=== PATIENT | female | born 1935 | race Caucasian/White ===

== ENCOUNTER → 2016-07-31 | Outpatient (CLI) | payer MEDICARE, OTHER ==
[~2016-07-31] MED LIST: CIPR500T3 PO; INCR1INH INH; LEVA250T PO; NIFE60TA4 PO; PERC10TA17 PO; PERCOCET PO; ROPI5TAB PO; TYLE325C PO; TYLE650T35 PO
[2016-07-31 17:26] LABS: CALCIUM LEVEL 8.8 MG/DL (8.8-10.2); CREATININE FOR GFR 1.4 MG/DL (0.55-1.02); GLOMERULAR FILTRATION RATE 38.2 (>32); POTASSIUM SERUM 4.3 MEQ/L (3.5-5.1)
[2016-07-31 17:32] LABS: MEAN CORPUSCULAR HEMOGLOBIN 27.7 pg (27.0-33.0); MEAN CORPUSCULAR HGB CONC 31.1 g/dl (32.0-36.5); RED CELL DISTRIBUTION WIDTH 13.9 % (11.5-14.5); WHITE BLOOD COUNT 7.4 K/mm3 (4.0-10.0)
== END ==
LOC: M SMT 14:00
PROVIDERS: ATTEND Urology
DX: Z85.51 Personal history of malignant neoplasm of bladder (principal)

== ENCOUNTER → 2016-11-24 | Outpatient (CLI) | payer MEDICARE, OTHER ==
[~2016-11-24] MED LIST changes: +NIFE15TA PO; -NIFE60TA4 PO
[2016-11-24 13:06] LABS: MEAN CORPUSCULAR HGB CONC 31.1 g/dl (32.0-36.5); MEAN CORPUSCULAR VOLUME 93.4 fl (80.0-96.0); RED CELL DISTRIBUTION WIDTH 14.3 % (11.5-14.5); WHITE BLOOD COUNT 6.1 K/mm3 (4.0-10.0)
[2016-11-24 13:38] LABS: CALCIUM LEVEL 9.1 MG/DL (8.8-10.2); CREATININE FOR GFR 1.29 MG/DL (0.55-1.02); POTASSIUM SERUM 4.3 MEQ/L (3.5-5.1)
== END ==
LOC: M SMT 09:46
PROVIDERS: ATTEND Urology
DX: Z85.51 Personal history of malignant neoplasm of bladder (principal)
CPT/HCPCS: 36415; 80048; 81001; 85027; 88108; G0463

== ENCOUNTER → 2017-02-15 | Outpatient (CLI) | payer MEDICARE, OTHER ==
[~2017-02-15] MED LIST changes: +LEVA1TAB PO; -LEVA250T PO; +NIFE60TA61; -PERC10TA17 PO; +PERC10TA26 PO; +ROPI1TAB
--- NOTE | 2017-02-15 09:47 | REP ---
CT of the chest without IV contrast: Comparisons are 02/16/2016, 06/11/2015, 11/09/2014 and 06/26/2013. There is a 9.5 mm spiculated nodule in the left upper lobe, stable and unchanged from 06/26/2013, therefore, likely a granuloma. There are two biopsy clips versus granulomas in the right upper lobe. There are two biopsy clips versus granulomas in the left upper lobe. These are unchanged from 04/29/2014. On 06/26/2013 there was a mass-like density in the deep sulcus of the right lower lobe. This is no longer present on the study today and was not present on studies dating from 11/17/2014. It had significantly decreased in size on04/29/2014. There is bilateral apical pleuroparenchymal scarring, unchanged from all prior studies. There is focal parenchymal scarring inferiorly in the right middle lobe unchanged from all prior studies. There is chronic parenchymal scarring in the right lower lobe, unchanged from 11/09/2014. There are no new lung nodules or masses. There are no acute infiltrates or effusions. There are small bulla throughout the lung parenchyma bilaterally as previously. There is no mediastinal or axillary adenopathy. In the absence of IV contrast the study is insensitive for hilar adenopathy. In the upper abdomen. There are surgical clips in the right adrenal and right renal upper pole areas, not present previously. I do not identify the right adrenal or upper pole of the right kidney. The left adrenal is unremarkable. There is a parapelvic cyst in the upper pole of the left kidney measuring 3.4 cm. This is unchanged from 11/24/2012. Impression: Stable nodule in the left upper lobe as described. Stable surgical clips versus granulomas in the upper lobes bilaterally, unchanged. No new nodules or masses. Chronic pleural parenchymal scarring in the lung apices. Chronic scarring in the right middle lobe and right lower lobe. Multiple bulla throughout the lung quiñonez bilaterally. New surgical clips in the right adrenal and right renal upper pole areas, not present previously. There are no new nodules or masses. There are no acute infiltrates or effusions. No adenopathy. Signed by Colton Diallo MD 02/15/2017 09:38 A
== END ==
LOC: M RAD 06:56
PROVIDERS: ATTEND Internal Medicine Pulmonary Disease
DX: J44.9 Chronic obstructive pulmonary disease, unspecified (principal); R91.1 Solitary pulmonary nodule; J98.4 Other disorders of lung

== ENCOUNTER → 2017-03-06 | Outpatient (CLI) | payer MEDICARE, OTHER ==
[2017-03-06 18:40] LABS: CALCIUM LEVEL 8.8 MG/DL (8.8-10.2); CREATININE FOR GFR 1.32 MG/DL (0.55-1.02); GLOMERULAR FILTRATION RATE 40.8 (>32); POTASSIUM SERUM 4.4 MEQ/L (3.5-5.1)
== END ==
LOC: M SMT 13:03
PROVIDERS: ATTEND Urology
DX: Z85.51 Personal history of malignant neoplasm of bladder (principal)

== ENCOUNTER 2017-04-19 18:54 | Emergency (ER) | payer MEDICARE, OTHER ==
[~2017-04-19] VITALS: Ht 157.5 cm; Wt 46.3 kg
[~2017-04-19 18:54] MED LIST changes: -NIFE60TA61; -ROPI1TAB
[2017-04-19] MEDS ORDERED: NIFE60TA61 (19:06)
[2017-04-19] MEDS ORDERED: ROPI1TAB (19:06)
[2017-04-19 22:33] VITALS: BP 173/79
== END 2017-04-19 22:35 | disposition home or self-care (01) ==
LOC: M ED 18:54
DX: S61.011A Laceration without foreign body of right thumb without damage to nail, initial encounter (principal); W01.198A Fall on same level from slipping, tripping and stumbling with subsequent striking against other object, initial encounter; Y92.099 Unspecified place in other non-institutional residence as the place of occurrence of the external cause; Y93.01 Activity, walking, marching and hiking; Y99.9 Unspecified external cause status

== ENCOUNTER → 2017-07-30 | Outpatient (CLI) | payer MEDICARE, OTHER ==
[2017-07-30 15:59] LABS: ANION GAP 6 MEQ/L (8-16); BLOOD UREA NITROGEN 27 MG/DL (7-18); CARBON DIOXIDE LEVEL 30 MEQ/L (21-32); CHLORIDE LEVEL 105 MEQ/L (98-107); CREATININE FOR GFR 1.24 MG/DL (0.55-1.02); GLOMERULAR FILTRATION RATE 43.9 (>32); GLUCOSE, FASTING 95 MG/DL (83-110); SODIUM LEVEL 141 MEQ/L (136-145)
[2017-07-30 16:05] LABS: HEMATOCRIT 36.8 % (36.0-47.0); HEMOGLOBIN 11.4 g/dl (12.0-16.0); MEAN CORPUSCULAR HEMOGLOBIN 28.6 pg (27.0-33.0); MEAN CORPUSCULAR VOLUME 92.5 fl (80.0-96.0); PLATELET COUNT, AUTOMATED 301 10^3/uL (150-450); RED BLOOD COUNT 3.98 10^6/uL (4.00-5.40); RED CELL DISTRIBUTION WIDTH 12.9 % (11.5-14.5); WHITE BLOOD COUNT 7.6 10^3/uL (4.0-10.0)
[2017-07-30 16:07] LABS: APPEARANCE, URINE CLEAR (CLEAR); BACTERIA, URINE AUTO NEGATIVE (NEGATIVE); BILIRUBIN, URINE AUTO NEGATIVE (NEGATIVE); BLOOD, URINE BLOOD NEGATIVE (NEGATIVE); COLOR, URINE YELLOW (YELLOW); GLUCOSE, URINE (UA) AUTO NEGATIVE (NEGATIVE); KETONE, URINE AUTO TRACE mg/dL (NEGATIVE); LEUKOCYTE ESTERASE, URINE AUTO NEGATIVE (NEGATIVE); NITRITE, URINE AUTO NEGATIVE (NEGATIVE); PROTEIN, URINE AUTO 1+ mg/dL (NEGATIVE); RBC, URINE AUTO 1 /HPF (0-3); SPECIFIC GRAVITY URINE AUTO 1.025 (1.002-1.035); SQUAMOUS EPITHELIAL CELL UR AU 0 /HPF (0-6); UROBILINOGEN, URINE AUTO 0.2 mg/dL (0.0-2.0); WBC, URINE AUTO 2 /HPF (0-3)
== END ==
LOC: M SMT 13:08
DX: Z85.51 Personal history of malignant neoplasm of bladder (principal)
CPT/HCPCS: 80048

== ENCOUNTER 2018-01-31 07:37 | Emergency (ER) | payer MEDICARE, OTHER ==
[2018-01-31 08:50] LABS: BASO # 0.1 10^3/uL (0.0-0.2); BASO % 0.4 % (0.0-1.0); EOS # 0.2 10^3/uL (0.0-0.50); EOS % 1.5 % (0.0-3.0); HEMATOCRIT 39.6 % (36.0-47.0); HEMOGLOBIN 12.7 g/dl (12.0-15.5); IMMATURE GRANULOCYTE % 0.5 % (0-3.0); LYMPH # 1.5 10^3/uL (1.5-4.5); MEAN CORPUSCULAR HEMOGLOBIN 29.4 pg (27.0-33.0); MEAN CORPUSCULAR HGB CONC 32.1 g/dl (32.0-36.5); MEAN CORPUSCULAR VOLUME 91.7 fl (80.0-96.0); MONO % 7.3 % (0.0-5.0); NEUTROPHILS # 10.6 10^3/uL (1.8-7.7); NEUTROPHILS % 79.3 % (36.0-66.0); PLATELET COUNT, AUTOMATED 328 10^3/uL (150-450); RED BLOOD COUNT 4.32 10^6/uL (4.00-5.40); RED CELL DISTRIBUTION WIDTH 13.2 % (11.5-14.5); WHITE BLOOD COUNT 13.4 10^3/uL (4.0-10.0)
[2018-01-31 08:57] LABS: ANION GAP 7 MEQ/L (8-16); BLOOD UREA NITROGEN 23 MG/DL (7-18); CALCIUM LEVEL 9.5 MG/DL (8.8-10.2); CARBON DIOXIDE LEVEL 29 MEQ/L (21-32); CHLORIDE LEVEL 107 MEQ/L (98-107); CREATININE FOR GFR 1.37 MG/DL (0.55-1.30); GLUCOSE, FASTING 104 MG/DL (70-100); POTASSIUM SERUM 4.2 MEQ/L (3.5-5.1); SODIUM LEVEL 143 MEQ/L (136-145)
[2018-01-31] MEDS: NS 500 ML IV ×2 (09:00)
== END 2018-01-31 12:57 | disposition home or self-care (01) ==
LOC: M ED 07:37
DX: K52.9 Noninfective gastroenteritis and colitis, unspecified (principal); N18.3 Chronic kidney disease, stage 3 (moderate); I12.9 Hypertensive chronic kidney disease with stage 1 through stage 4 chronic kidney disease, or unspecified chronic kidney disease; J45.909 Unspecified asthma, uncomplicated; G25.81 Restless legs syndrome; Z88.8 Allergy status to other drugs, medicaments and biological substances; Z79.899 Other long term (current) drug therapy
CPT/HCPCS: 80048

== ENCOUNTER → 2018-02-04 | Outpatient (REF) | payer MEDICARE, OTHER | LOC: M SMT 16:58 | DX: Z85.51 Personal history of malignant neoplasm of bladder (principal) | CPT/HCPCS: 88108 ==

== ENCOUNTER → 2018-02-26 | Outpatient (CLI) | payer MEDICARE, OTHER | LOC: M WUC 17:58 | DX: M25.552 Pain in left hip (principal); M79.605 Pain in left leg; M85.88 Other specified disorders of bone density and structure, other site; M16.12 Unilateral primary osteoarthritis, left hip | CPT/HCPCS: 73502 ==

== ENCOUNTER 2018-05-23 07:41 | Day surgery (SDC) | payer MEDICARE, OTHER ==
[2018-05-23] MEDS: PROPARACAINE 0.5% OPHTH SOL 15ML OS (08:00)
[2018-05-23] MEDS: OFLOXACIN 0.3 % (OCUFLOX) OPTH SOL 5ML OS (08:00)
[2018-05-23] MEDS: TROPICAMIDE 1% OPHTH SOLN 2ML OS (08:00)
[2018-05-23] MEDS: PHENYLEPHRINE 2.5% OPHTH SOL 2ML OS (08:00)
[2018-05-23] MEDS: POVIDONE-IODINE 5% OPHTH PREP SOL 30ML As Ordered (08:25)
[2018-05-23] MEDS: DUOVISC (0.50ML VISCOAT/0.55ML PROVISC) OPHTH KIT As Ordered (08:28)
[2018-05-23] MEDS: LIDOCAINE 0.75%/EPINEPHRINE 0.025% IN BSS 1ML SYR INTRACAMERAL (OR ONLY) As Ordered (08:28)
[2018-05-23] MEDS: BALANCED SALT IRRIGATION SOLUTION 500ML BAG (FOR OR EYE MACHINE) As Ordered (08:28)
[2018-05-23] MEDS: CEFUROXIME 1MG/0.1ML INTRACAMERAL INJ As Ordered (08:29)
[2018-05-23] MEDS ORDERED: TRIAMCINOLONE PRES FR 40 MG/ML 1ML(TRIESENCE)(OR EYE ONLY)(J3300 PER 1MG) As Ordered (08:33)
[2018-05-23] MEDS ORDERED: fentaNYL 100 MCG/2 ML INJECTION (J3010) As Ordered (08:41)
[2018-05-23] MEDS ORDERED: MIDAZOLAM INJ 2 MG/2 ML VIAL (J2250) As Ordered (08:41)
== END 2018-05-23 09:25 | disposition home or self-care (01) ==
LOC: M SDC 07:41
DX: H25.12 Age-related nuclear cataract, left eye (principal); I10 Essential (primary) hypertension; R00.2 Palpitations; M12.9 Arthropathy, unspecified; R63.6 Underweight; Z68.1 Body mass index [BMI] 19.9 or less, adult; Z88.8 Allergy status to other drugs, medicaments and biological substances; Z79.899 Other long term (current) drug therapy; Z85.118 Personal history of other malignant neoplasm of bronchus and lung; Z85.51 Personal history of malignant neoplasm of bladder; Z87.891 Personal history of nicotine dependence; Z96.652 Presence of left artificial knee joint; Z90.5 Acquired absence of kidney
CPT/HCPCS: 66984

== ENCOUNTER 2018-06-20 06:23 | Day surgery (SDC) | payer MEDICARE, OTHER ==
[2018-06-20] MEDS ORDERED: MIDAZOLAM INJ 2 MG/2 ML VIAL (J2250) As Ordered (07:01)
[2018-06-20] MEDS ORDERED: fentaNYL 100 MCG/2 ML INJECTION (J3010) As Ordered (07:01)
[2018-06-20] MEDS: PHENYLEPHRINE 2.5% OPHTH SOL 2ML OD (07:23)
[2018-06-20] MEDS: OFLOXACIN 0.3 % (OCUFLOX) OPTH SOL 5ML OD (07:23)
[2018-06-20] MEDS: PROPARACAINE 0.5% OPHTH SOL 15ML OD (07:23)
[2018-06-20] MEDS: TROPICAMIDE 1% OPHTH SOLN 2ML OD (07:23)
[2018-06-20] MEDS: POVIDONE-IODINE 5% OPHTH PREP SOL 30ML As Ordered (07:58)
[2018-06-20] MEDS: LIDOCAINE 0.75%/EPINEPHRINE 0.025% IN BSS 1ML SYR INTRACAMERAL (OR ONLY) As Ordered (08:02)
[2018-06-20] MEDS: DUOVISC (0.50ML VISCOAT/0.55ML PROVISC) OPHTH KIT As Ordered ×2 (08:03→08:18)
[2018-06-20] MEDS: TRYPAN BLUE 0.06 % 2.25 ML OPHTH SYR (VISIONBLUE) As Ordered (08:08)
[2018-06-20] MEDS: BALANCED SALT IRRIGATION SOLUTION 500ML BAG (FOR OR EYE MACHINE) As Ordered (08:09)
[2018-06-20] MEDS: CEFUROXIME 1MG/0.1ML INTRACAMERAL INJ As Ordered (08:10)
[2018-06-20] MEDS: TRIAMCINOLONE PRES FR 40 MG/ML 1ML(TRIESENCE)(OR EYE ONLY)(J3300 PER 1MG) As Ordered (08:19)
== END 2018-06-20 09:00 | disposition home or self-care (01) ==
LOC: M SDC 06:23
DX: H25.11 Age-related nuclear cataract, right eye (principal); I10 Essential (primary) hypertension; Z79.899 Other long term (current) drug therapy; Z85.118 Personal history of other malignant neoplasm of bronchus and lung
CPT/HCPCS: 66984

== ENCOUNTER → 2018-08-23 | Outpatient (REF) | payer MEDICARE, OTHER ==
[~2018-08-23] MED LIST changes: -LEVA1TAB PO; +LEVA250T13 PO; +LISI10TA4 PO; +LOMO2.5T PO; +NIFE60TA40; +ROPI1TAB PO; -ROPI5TAB PO; +ROPI5TAB3 PO; +ZOFR4TAB14 PO
== END ==
LOC: M SMT 17:14
PROVIDERS: ATTEND Urology Pediatric Urology
DX: Z85.51 Personal history of malignant neoplasm of bladder (principal); H25.89 Other age-related cataract; N30.30 Trigonitis without hematuria; R19.2 Visible peristalsis

== ENCOUNTER → 2018-09-06 | Outpatient (REF) | payer MEDICARE, OTHER | LOC: M SMT 16:44 | PROVIDERS: ATTEND Urology Pediatric Urology | DX: Z85.51 Personal history of malignant neoplasm of bladder (principal) ==

== ENCOUNTER 2018-09-19 16:32 | Emergency (ER) | payer MEDICARE, OTHER ==
[~2018-09-19] VITALS: Ht 157.5 cm; Wt 45.5 kg
[2018-09-19 16:32] VITALS: BP 197/92
== END 2018-09-19 17:16 | disposition left against medical advice (07) ==
LOC: M ED 16:32
DX: Z53.21 Procedure and treatment not carried out due to patient leaving prior to being seen by health care provider (principal)

== ENCOUNTER → 2018-09-24 | Outpatient (CLI) | payer MEDICARE, OTHER ==
[2018-09-24 18:28] LABS: ALBUMIN 3.2 GM/DL (3.2-5.2); BILIRUBIN,TOTAL 0.2 MG/DL (0.2-1.0); CALCIUM LEVEL 8.7 MG/DL (8.8-10.2); CREATININE FOR GFR 1.14 MG/DL (0.55-1.30); GLOMERULAR FILTRATION RATE 48.2 (>32); POTASSIUM SERUM 4.3 MEQ/L (3.5-5.1); TOTAL PROTEIN 7.2 GM/DL (6.4-8.2)
== END ==
LOC: M SMT 13:39
PROVIDERS: ATTEND Urology Pediatric Urology
DX: Z85.51 Personal history of malignant neoplasm of bladder (principal)

== ENCOUNTER → 2018-09-24 | Outpatient (REF) | payer MEDICARE, OTHER | LOC: M SMT 17:09 | PROVIDERS: ATTEND Urology Pediatric Urology | DX: Z85.51 Personal history of malignant neoplasm of bladder (principal) ==

== ENCOUNTER 2018-10-21 15:33 | Emergency (ER) | payer MEDICARE, OTHER ==
[~2018-10-21] VITALS: Ht 157.5 cm; Wt 45.5 kg
[2018-10-21] MEDS ORDERED: PROAAER10 (15:58)
--- NOTE | 2018-10-21 18:47 | REP ---
Clinical: Trauma. Technique: Gates and bilateral lateral views of the nasal bones. Findings: Nasal septum is midline. Nasal bones appear intact without acute fracture or dislocation. Overlying soft tissues are grossly unremarkable. Impression: No acute nasal bone fracture identified. Electronically Signed by Lizandro Yun MD 10/21/2018 06:39 P
[2018-10-21] MEDS ORDERED: BACI500O8 TOP (19:14)
[2018-10-21 19:20] VITALS: BP 144/75
== END 2018-10-21 19:22 | disposition home or self-care (01) ==
LOC: M ED 15:33
DX: S01.21XA Laceration without foreign body of nose, initial encounter (principal); S00.511A Abrasion of lip, initial encounter; W01.10XA Fall on same level from slipping, tripping and stumbling with subsequent striking against unspecified object, initial encounter; Y92.480 Sidewalk as the place of occurrence of the external cause; Y93.9 Activity, unspecified; Y99.9 Unspecified external cause status; I10 Essential (primary) hypertension; J44.9 Chronic obstructive pulmonary disease, unspecified; Z85.118 Personal history of other malignant neoplasm of bronchus and lung; K21.9 Gastro-esophageal reflux disease without esophagitis; N18.9 Chronic kidney disease, unspecified; Z79.899 Other long term (current) drug therapy; Z88.8 Allergy status to other drugs, medicaments and biological substances

== ENCOUNTER → 2019-09-17 | Outpatient (REF) | payer MEDICARE, OTHER ==
[~2019-09-17] MED LIST changes: +BACI500O8 TOP; +PROAAER10; -ROPI1TAB PO; +ROPI1TAB3 PO
== END ==
LOC: M SMT 16:56
PROVIDERS: ATTEND Nurse Practitioner Women's Health
DX: Z85.51 Personal history of malignant neoplasm of bladder (principal)

== ENCOUNTER 2019-10-24 14:27 | Emergency (ER) | payer MEDICARE, OTHER ==
[~2019-10-24] VITALS: Ht 154.9 cm; Wt 42.7 kg
[2019-10-24] MEDS ORDERED: METR-265 PO (14:56)
[2019-10-24] MEDS ORDERED: CIPR500T3 PO (14:56)
[2019-10-24 15:00] LABS: BASO % 0.6 % (0.0-1.0); EOS # 0.2 10^3/uL (0.0-0.5); EOS % 2.4 % (0.0-3.0); HEMATOCRIT 41.5 % (36.0-47.0); HEMOGLOBIN 13.3 g/dl (12.0-15.5); LYMPH # 1.7 10^3/uL (1.5-5.0); LYMPH % 25.4 % (24.0-44.0); MEAN CORPUSCULAR HEMOGLOBIN 29.6 pg (27.0-33.0); MEAN CORPUSCULAR VOLUME 92.2 fl (80.0-96.0); MONO # 0.7 10^3/uL (0.0-0.8); MONO % 10.2 % (0.0-5.0); NEUTROPHILS % 60.9 % (36.0-66.0); PLATELET COUNT, AUTOMATED 215 10^3/uL (150-450); WHITE BLOOD COUNT 6.6 10^3/uL (4.0-10.0)
[2019-10-24 15:12] LABS: INR 1.18; PROTHROMBIN TIME 14.7 SECONDS (11.8-14.0)
[2019-10-24 15:13] LABS: PARTIAL THROMBOPLASTIN TIME 31.8 SECONDS (25.0-38.4)
[2019-10-24] MEDS ORDERED: NS 500 ML IV ONE (15:15)
--- NOTE | 2019-10-24 15:15 | REP ---
PORTABLE CHEST X-RAY: Single view. HISTORY: Chest pain. COMPARISON CHEST X-RAY: July 31, 2017. FINDINGS: There is an S-shaped thoracolumbar scoliotic curve again noted. There are fiducial metallic markers in the upper lobes bilaterally unchanged. The lungs overall are somewhat hyperinflated. Cardiomegaly is observed. There is slight blunting of the right lateral pleural angle. Some linear fibrosis is noted in the right base. No infiltrate is seen. Pulmonary vasculature is not increased. The aorta is calcific and tortuous. IMPRESSION: Hyperinflation. Linear fibrosis right base. Slight blunting of the right lateral pleural angle. Cardiomegaly. Electronically Signed by Rubén Vaca MD 10/24/2019 04:10 P
[2019-10-24 15:43] LABS: ALBUMIN 3.2 GM/DL (3.2-5.2); ALT/SGPT 18 U/L (12-78); BILIRUBIN,DIRECT < 0.1 MG/DL (0.0-0.2); BILIRUBIN,TOTAL 0.3 MG/DL (0.2-1.0); BLOOD UREA NITROGEN 21 MG/DL (7-18); CALCIUM LEVEL 8.9 MG/DL (8.8-10.2); CARBON DIOXIDE LEVEL 26 MEQ/L (21-32); CHLORIDE LEVEL 108 MEQ/L (98-107); CK-MB VALUE MASS 4.5 NG/ML (<3.6); CPK CREATINE PHOSPHOKINASE 105 U/L (26-192); CREATININE FOR GFR 1.14 MG/DL (0.55-1.30); GLOMERULAR FILTRATION RATE 48.1 (>32); GLUCOSE, FASTING 128 MG/DL (70-100); MB/CK RELATIVE INDEX 4.29 (< OR =4); POTASSIUM SERUM 3.9 MEQ/L (3.5-5.1); SODIUM LEVEL 138 MEQ/L (136-145); THYROID STIMULATING HORMONE 0.296 uIU/ML (0.358-3.740); TOTAL PROTEIN 6.9 GM/DL (6.4-8.2); TROPONIN I 0.03 NG/ML (< 0.10)
[2019-10-24] MEDS ORDERED: ECOT81TA5 PO (16:29)
[2019-10-24 16:30] VITALS: BP 121/70
[2019-10-24] MEDS ORDERED: ATEN25TA PO (16:30)
--- NOTE | 2019-10-25 07:31 | ECGEPIP ---
[facility] - ED Test Date: 2019-10-24 Pat Name: RILEY NYE Department: Room: - Gender: Female Mechanical Repair Worker: Velma WALSH : 1935 Requested By: ANGELA Carter Order Number: [id number] Reading MD: Jose A Payne Measurements Intervals [place] Rate: 90 P: [place]: 0 QRS: 268 QRSD: 125 T: 68 QT: 358 QTc: 439 Interpretive Statements ATRIAL FIBRILLATION RIGHT BUNDLE BRANCH BLOCK INFERIOR MYOCARDIAL INFARCTION, OF INDETERMINATE AGE NOISY BASELINE PREVIOUS TRACING DONE 07-31-17 WAS SINUS RHYTHM Electronically Signed on 10-25-2019 7:30:52 EDT by Jose A Payne
== END 2019-10-24 17:00 | disposition home or self-care (01) ==
LOC: EDBD 14:27 → M ED 14:27
DX: I48.91 Unspecified atrial fibrillation (principal); I67.9 Cerebrovascular disease, unspecified; I11.9 Hypertensive heart disease without heart failure; K21.9 Gastro-esophageal reflux disease without esophagitis; R91.8 Other nonspecific abnormal finding of lung field; Z79.51 Long term (current) use of inhaled steroids; Z79.899 Other long term (current) drug therapy; Z88.8 Allergy status to other drugs, medicaments and biological substances

== ENCOUNTER → 2020-01-02 | Outpatient (CLI) | payer MEDICARE, OTHER ==
[~2020-01-02] MED LIST changes: +ATEN25TA PO; +ECOT81TA5 PO; +METR-265 PO
[2020-01-02 11:05] LABS: HEMATOCRIT 41.5 % (36.0-47.0); HEMOGLOBIN 12.8 g/dl (12.0-15.5); MEAN CORPUSCULAR HEMOGLOBIN 29.5 pg (27.0-33.0); MEAN CORPUSCULAR HGB CONC 30.8 g/dl (32.0-36.5); MEAN CORPUSCULAR VOLUME 95.6 fl (80.0-96.0); PLATELET COUNT, AUTOMATED 280 10^3/uL (150-450); RED BLOOD COUNT 4.34 10^6/uL (4.00-5.40); WHITE BLOOD COUNT 5.6 10^3/uL (4.0-10.0)
[2020-01-02 11:29] LABS: ERYTHROCYTE SEDIMENTATION RATE 45 mm/hr (0-30)
[2020-01-02 11:41] LABS: ALBUMIN 3.1 GM/DL (3.2-5.2); ALT/SGPT 19 U/L (12-78); BILIRUBIN,TOTAL 0.3 MG/DL (0.2-1.0); BLOOD UREA NITROGEN 14 MG/DL (7-18); CARBON DIOXIDE LEVEL 31 MEQ/L (21-32); CHLORIDE LEVEL 105 MEQ/L (98-107); CREATININE FOR GFR 0.91 MG/DL (0.55-1.30); FREE T3 2.5 PG/ML (2.2-4.0); FREE T4 1.16 NG/DL (0.76-1.46); GLOMERULAR FILTRATION RATE > 60.0 (>32); GLUCOSE, FASTING 85 MG/DL (70-100); POTASSIUM SERUM 4.4 MEQ/L (3.5-5.1); SODIUM LEVEL 141 MEQ/L (136-145); THYROID STIMULATING HORMONE 0.348 uIU/ML (0.358-3.740)
== END ==
LOC: M LAB 10:05
PROVIDERS: ATTEND Family Medicine
DX: E07.9 Disorder of thyroid, unspecified (principal); R53.83 Other fatigue; I48.0 Paroxysmal atrial fibrillation; I50.32 Chronic diastolic (congestive) heart failure

== ENCOUNTER → 2020-01-02 | Outpatient (CLI) | payer MEDICARE, OTHER ==
[2020-01-02 11:33] LABS: BLOOD UREA NITROGEN 13 MG/DL (7-18); CALCIUM LEVEL 9.2 MG/DL (8.8-10.2); CARBON DIOXIDE LEVEL 31 MEQ/L (21-32); CHLORIDE LEVEL 105 MEQ/L (98-107); GLOMERULAR FILTRATION RATE > 60.0 (>32); GLUCOSE, FASTING 84 MG/DL (70-100); MAGNESIUM LEVEL 2.1 MG/DL (1.8-2.4); POTASSIUM SERUM 4.5 MEQ/L (3.5-5.1); SODIUM LEVEL 142 MEQ/L (136-145)
== END ==
LOC: M LAB 10:01
PROVIDERS: ATTEND Physician Assistant
DX: I48.0 Paroxysmal atrial fibrillation (principal); I50.32 Chronic diastolic (congestive) heart failure

== ENCOUNTER → 2020-02-02 | Outpatient (CLI) | payer MEDICARE, OTHER ==
[~2020-02-02] MED LIST changes: +ACET650T61 PO; +COMBAER6 INH; +ELIQ2.5T; +LASI20TA3 PO; +PRED20TA PO; -TYLE650T35 PO
[2020-02-02 15:31] LABS: FREE T3 2.5 PG/ML (2.2-4.0); FREE T4 1.14 NG/DL (0.76-1.46); THYROID STIMULATING HORMONE 0.734 uIU/ML (0.358-3.740)
== END ==
LOC: M LAB 13:15
PROVIDERS: ATTEND Family Medicine
DX: E07.9 Disorder of thyroid, unspecified (principal); R70.0 Elevated erythrocyte sedimentation rate

== ENCOUNTER 2020-02-17 17:05 | Emergency (ER) | payer MEDICARE, OTHER ==
[~2020-02-17 17:05] MED LIST changes: -COMBAER6 INH; -ELIQ2.5T; -LASI20TA3 PO; -PRED20TA PO
[2020-03-14 22:48] LABS: ALBUMIN 3.1 GM/DL (3.2-5.2); ALT/SGPT 60 U/L (12-78); BILIRUBIN,DIRECT 0.1 MG/DL (0.0-0.2); BILIRUBIN,TOTAL 0.4 MG/DL (0.2-1.0); BLOOD UREA NITROGEN 13 MG/DL (7-18); CALCIUM LEVEL 9.2 MG/DL (8.8-10.2); CARBON DIOXIDE LEVEL 29 MEQ/L (21-32); CHLORIDE LEVEL 103 MEQ/L (98-107); CK-MB VALUE MASS 3.1 NG/ML (<3.6); CPK CREATINE PHOSPHOKINASE 74 U/L (26-192); CREATININE FOR GFR 0.92 MG/DL (0.55-1.30); GLOMERULAR FILTRATION RATE > 60.0 (>32); GLUCOSE, FASTING 97 MG/DL (70-100); LIPASE 633 U/L (73-393); MB/CK RELATIVE INDEX 4.19 (< OR =4); POTASSIUM SERUM 4.1 MEQ/L (3.5-5.1); SODIUM LEVEL 139 MEQ/L (136-145); THYROID STIMULATING HORMONE 0.702 uIU/ML (0.358-3.740); TOTAL PROTEIN 7.1 GM/DL (6.4-8.2); TROPONIN I 0.02 NG/ML (< 0.10)
[2020-03-19 12:12] LABS: INR 0.93; PARTIAL THROMBOPLASTIN TIME 29.2 SECONDS (25.0-38.4); PROTHROMBIN TIME 12.6 SECONDS (11.8-14.0)
[2020-03-19 12:53] LABS: BASO % 0.3 % (0.0-1.0); EOS # 0.2 10^3/uL (0.0-0.5); EOS % 2.2 % (0.0-3.0); HEMATOCRIT 39.7 % (36.0-47.0); HEMOGLOBIN 12.5 g/dl (12.0-15.5); LYMPH # 1.1 10^3/uL (1.5-5.0); LYMPH % 12.3 % (24.0-44.0); MEAN CORPUSCULAR HEMOGLOBIN 30.3 pg (27.0-33.0); MEAN CORPUSCULAR HGB CONC 31.5 g/dl (32.0-36.5); MEAN CORPUSCULAR VOLUME 96.4 fl (80.0-96.0); MONO # 0.8 10^3/uL (0.0-0.8); MONO % 9.5 % (0.0-5.0); NEUTROPHILS # 6.6 10^3/uL (1.5-8.5); PLATELET COUNT, AUTOMATED 192 10^3/uL (150-450); RED BLOOD COUNT 4.12 10^6/uL (4.00-5.40); WHITE BLOOD COUNT 8.8 10^3/uL (4.0-10.0)
--- NOTE | 2020-04-08 14:10 | ECGEPIP ---
ATRIAL FIBRILLATION MARKED RIGHT AXIS DEVIATION RIGHT BUNDLE BRANCH BLOCK ABNORMAL ECG NO OLD AVAILABLE SEE SCANNED DOWNTIME REPORT MTDD
== END 2020-02-17 20:00 | disposition home or self-care (01) ==
LOC: M ED 17:05
DX: R11.10 Vomiting, unspecified (principal); I50.9 Heart failure, unspecified; J44.9 Chronic obstructive pulmonary disease, unspecified; I48.91 Unspecified atrial fibrillation; Z79.899 Other long term (current) drug therapy; Z79.82 Long term (current) use of aspirin; Z88.8 Allergy status to other drugs, medicaments and biological substances; Z87.891 Personal history of nicotine dependence

== ENCOUNTER 2020-05-18 15:42 | Emergency (ER) | payer MEDICARE, OTHER ==
[~2020-05-18] VITALS: Ht 154.9 cm; Wt 43.5 kg
[2020-05-18] MEDS ORDERED: ELIQ2.5T (15:53)
--- NOTE | 2020-05-18 16:52 | REP ---
INDICATION: DYSPNEA/COUGH. COMPARISON: 02/17/2020. TECHNIQUE: SINGLE PORTABLE AP VIEW OF THE CHEST WAS PERFORMED. FINDINGS: There is stable chronic interstitial fibrosis bilaterally. There is mild biapical pleural thickening which is stable. Two metallic clips overlie each superior hemithorax. I see no new infiltrate. There is chronic blunting of the right costophrenic angle. There is moderate cardiomegaly. There is calcification and tortuosity of the thoracic aorta. The mediastinal silhouette is unchanged. There is mild elevation of the right hemidiaphragm unchanged. IMPRESSION: Moderate cardiomegaly. Stable chronic changes. No acute infiltrate. <Electronically signed by Colton Horvath > 05/18/20 [id number]
[2020-05-18 17:17] LABS: BASO % 0.3 % (0.0-1.0); EOS # 0.2 10^3/uL (0.0-0.5); EOS % 2.2 % (0.0-3.0); HEMATOCRIT 37.7 % (36.0-47.0); HEMOGLOBIN 11.4 g/dl (12.0-15.5); LYMPH % 10.3 % (24.0-44.0); MEAN CORPUSCULAR HEMOGLOBIN 28.3 pg (27.0-33.0); MEAN CORPUSCULAR HGB CONC 30.2 g/dl (32.0-36.5); MEAN CORPUSCULAR VOLUME 93.5 fl (80.0-96.0); MONO % 10.7 % (0.0-5.0); NEUTROPHILS # 7.3 10^3/uL (1.5-8.5); NEUTROPHILS % 75.7 % (36.0-66.0); PLATELET COUNT, AUTOMATED 252 10^3/uL (150-450); RED BLOOD COUNT 4.03 10^6/uL (4.00-5.40); WHITE BLOOD COUNT 9.6 10^3/uL (4.0-10.0)
[2020-05-18 17:41] LABS: ALBUMIN 2.6 GM/DL (3.2-5.2); ALT/SGPT 62 U/L (12-78); BILIRUBIN,DIRECT < 0.1 MG/DL (0.0-0.2); BILIRUBIN,TOTAL 0.3 MG/DL (0.2-1.0); NT-PRO BNP 7556 PG/ML (<450); THYROID STIMULATING HORMONE 0.671 uIU/ML (0.358-3.740); THYROXINE (T4) 9.3 UG/DL (4.5-12.0); TOTAL PROTEIN 6.6 GM/DL (6.4-8.2)
[2020-05-18] MEDS: COMBIVENT RESPIMAT 100-20MCG INHALER 4GM INH SCH ×3 (17:45→18:38)
[2020-05-18] MEDS ORDERED: FUROSEMIDE 20MG/2ML VIAL (J1940) IV ONE (17:45)
[2020-05-18] MEDS ORDERED: dexameTHASONE 4 MG/ML 1ML VIAL (J1100 PER 1MG) IV ONE (17:45)
[2020-05-18 18:53] VITALS: BP 159/80
[2020-05-18] MEDS ORDERED: PRED20TA PO (19:01)
[2020-05-18] MEDS ORDERED: LASI20TA3 PO (19:01)
[2020-05-18] MEDS ORDERED: COMBAER6 INH (19:01)
--- NOTE | 2020-05-21 06:54 | ECGEPIP ---
[facility] - ED Test Date: 2020-05-18 Pat Name: RILEY NYE Department: Room: - Gender: Female Solar Electric/Photovoltaic Installer: hillary : 1935 Requested By: JOSE A Chilel Order Number: [id number] Reading MD: Jose A Payne Measurements Intervals [place] Rate: 82 P: [place]: 0 QRS: 258 QRSD: 123 T: 65 QT: 374 QTc: 439 Interpretive Statements ATRIAL FIBRILLATION Low QRS complex voltage in the limb leads RIGHT BUNDLE BRANCH BLOCK INFERIOR MYOCARDIAL INFARCTION, PROBABLY OLD Similar to tracing done 10-24-19 Electronically Signed on 05-21-2020 6:54:10 EDT by Jose A Payne
== END 2020-05-18 19:33 | disposition home or self-care (01) ==
LOC: M ED 15:42
DX: J44.9 Chronic obstructive pulmonary disease, unspecified (principal); I50.9 Heart failure, unspecified; I48.91 Unspecified atrial fibrillation; Z99.81 Dependence on supplemental oxygen; Z79.899 Other long term (current) drug therapy; Z79.01 Long term (current) use of anticoagulants; Z88.8 Allergy status to other drugs, medicaments and biological substances; F17.210 Nicotine dependence, cigarettes, uncomplicated
CPT/HCPCS: 71045; 80047; 80076; 83880; 84436; 84443; 84484; 85025; 93005; 93041; 94640; 94760; 96374; 96375; 99285; J1100; J1940

== ENCOUNTER 2020-08-02 11:31 | Inpatient (IN) | payer MEDICARE, OTHER ==
[~2020-08-02] VITALS: Ht 162.6 cm; Wt 42.0 kg
[~2020-08-02 11:31] MED LIST changes: +COMBAER6 INH; +ELIQ2.5T; +LASI20TA3 PO; +PRED20TA PO
--- NOTE | 2020-08-02 11:52 | REP ---
INDICATION: fall on blood thinners COMPARISON: None. TECHNIQUE: Axial noncontrast images from the skull base to the thoracic inlet with coronal reformations. This CT examination was performed using the following dose reduction techniques: Automated exposure control, adjustment of mA and/or kv according to the patient's size, and use of iterative reconstruction technique. FINDINGS: Age-related atrophy with periventricular leukomalacia and microvascular ischemic changes are appreciated. The ventricles and sulci are symmetric. Horvath-white differentiation is maintained. There is no evidence for acute intracranial hemorrhage, mass/mass effect, pathology or infarction. No extra-axial fluid collection. Calvarium is intact. Paranasal sinuses and mastoid air cells are clear. IMPRESSION: Atrophy and microvascular ischemic changes. No acute intracranial hemorrhage, infarction, or mass/mass effect. <Electronically signed by Lizandro Yun > 08/02/20 [id number]
--- NOTE | 2020-08-02 11:54 | REP ---
INDICATION: fall on blood thinners COMPARISON: None. TECHNIQUE: Axial noncontrast images from the skull base to the thoracic inlet with coronal and sagittal re-formations This CT examination was performed using the following dose reduction techniques: Automated exposure control, adjustment of mA and/or kv according to the patient's size, and use of iterative reconstruction technique. FINDINGS: Age-related osteopenia and advanced multilevel degenerative disc osteophyte complexes are appreciated. Spinal canal is patent. No acute fracture/compression injury or subluxation. Posterior elements and spinous processes are intact. Paravertebral soft tissues are grossly within normal limits.. Lung apices demonstrate chronic changes including surgical clips in the right apex with subpleural scarring similar to 2018. IMPRESSION: Age-related osteopenia and advanced multilevel degenerative spondylosis. No acute fracture/compression injury or subluxation appreciated. <Electronically signed by Lizandro Yun > 08/02/20 [id number]
[2020-08-02 13:02] LABS: BASO % 0.1 % (0.0-1.0); HEMATOCRIT 39.2 % (36.0-47.0); HEMOGLOBIN 11.7 g/dl (12.0-15.5); LYMPH # 1.5 10^3/uL (1.5-5.0); MEAN CORPUSCULAR HGB CONC 29.8 g/dl (32.0-36.5); MEAN CORPUSCULAR VOLUME 97.3 fl (80.0-96.0); MONO # 1.2 10^3/uL (0.0-0.8); MONO % 10.5 % (0.0-5.0); NEUTROPHILS # 8.4 10^3/uL (1.5-8.5); NEUTROPHILS % 75.9 % (36.0-66.0); PLATELET COUNT, AUTOMATED 258 10^3/uL (150-450); RED BLOOD COUNT 4.03 10^6/uL (4.00-5.40); WHITE BLOOD COUNT 11.1 10^3/uL (4.0-10.0)
[2020-08-02 13:19] LABS: ALBUMIN 3.5 GM/DL (3.2-5.2); BILIRUBIN,DIRECT 0.2 MG/DL (0.0-0.2); BILIRUBIN,TOTAL 0.7 MG/DL (0.2-1.0); CALCIUM LEVEL 9.4 MG/DL (8.8-10.2); CK-MB VALUE MASS 8.8 NG/ML (<3.6); CREATININE FOR GFR 0.97 MG/DL (0.55-1.30); GLOMERULAR FILTRATION RATE 57.8 (>32); MB/CK RELATIVE INDEX 1.86 (< OR =4); POTASSIUM SERUM 4.4 MEQ/L (3.5-5.1); THYROID STIMULATING HORMONE 0.215 uIU/ML (0.358-3.740); TOTAL PROTEIN 6.9 GM/DL (6.4-8.2); TROPONIN I 0.06 NG/ML (< 0.10)
--- NOTE | 2020-08-02 14:12 | REP ---
INDICATION: right hand bruising; ?injury COMPARISON: None. TECHNIQUE: AP, lateral, bilateral oblique views right hand. FINDINGS: Age-related osteopenia and generalized arthritic changes are appreciated which limit evaluation for subtle injury and specifically within the phalanges. There appears to be a presumed healed fracture at the base of the 4th metacarpal bone which should be correlated clinically. No further obvious acute fracture or dislocation identified.. IMPRESSION: Osteopenia and generalized advanced arthritic changes limiting evaluation for subtle injury. Suspected old healed fracture at the base of the 4th metacarpal bone should be correlated clinically. No obvious acute fracture identified. <Electronically signed by Lizandro Yun > 08/02/20 [id number]
--- NOTE | 2020-08-02 14:25 | REP ---
INDICATION: nasal bruising; ?injury. COMPARISON: None. TECHNIQUE: Three views of nasal bones performed. FINDINGS: The nasal bones appear intact with no evidence of fracture. IMPRESSION: No radiographic evidence of nasal bone fracture. <Electronically signed by Colton Horvath > 08/02/20 [id number]
[2020-08-02] MEDS ORDERED: rOPINIRole 1MG TAB PO STA (15:31)
[2020-08-02] MEDS ORDERED: NIFEdipine 30 MG XL TAB PO STA (15:31)
[2020-08-02 17:53] LABS: RSV AMPLIFICATION NEGATIVE (NEGATIVE)
--- OUTSIDE RECORDS SUMMARY | 2020-08-02 19:34 | CCD ---
Author Author [facility] Organization [facility] Address Unknown Phone Unavailable Care Team Providers Care Water Resources Program Director Name Role Phone Marlin Mckeon Unavailable Unavailable SymenoMarlin pereira Unavailable Unavailable AllenenoMarlin pereira Unavailable Unavailable AllenenoMarlin pereira Unavailable Unavailable AllenenoMarlin pereira Unavailable Unavailable AllenenoMarlin pereira Unavailable Unavailable Marlin Mckeon PA Unavailable Unavailable Marlin Mckeon Unavailable Unavailable Marlin Mckeon Unavailable Unavailable Marlin Mckeon Unavailable Unavailable Marlin Mckeon PA Unavailable Unavailable Marlin Mckeon PA Unavailable Unavailable AllenenoMarlin pereira PA Unavailable Unavailable Marlin Mckeon Unavailable Unavailable Symenow, Marlin Darleen PA Unavailable Unavailable Symenow, Marlin Darleen PA Unavailable Unavailable Symenow, Marlin Darleen PA Unavailable Unavailable Symenow, Marlin Darleen PA Unavailable Unavailable Symenow, Marlin Darleen PA Unavailable Unavailable Symenow, Marlin Darleen PA Unavailable Unavailable Symenow, Marlin Darleen PA Unavailable Unavailable Symenow, Marlin Darleen PA Unavailable Unavailable Symenow, Marlin Darleen PA Unavailable Unavailable Symenow, Marlin Darleen PA Unavailable Unavailable Symenow, Marlin Darleen PA Unavailable Unavailable Symenow, Marlin Darleen PA Unavailable Unavailable Symenow, Marlin Darleen PA Unavailable Unavailable Symenow, Marlin Darleen PA Unavailable Unavailable Symenow, Marlin Darleen PA Unavailable Unavailable Symenow, Marlin Darleen PA Unavailable Unavailable Symenow, Marlin Darleen PA Unavailable Unavailable Symenow, Marlin Darleen PA Unavailable Unavailable Symenow, Marlin Darleen PA Unavailable Unavailable Symenow, Marlin Darleen PA Unavailable Unavailable Symenow, Marlin Darleen PA Unavailable Unavailable Symenow, Marlin Darleen PA Unavailable Unavailable DorothyJuli ghosh MD Unavailable Unavailabl e Dorothy, Juli Penaius Gene Unavailable Unavailabl e Dorothy, Juli Penaius Gene Unavailable Unavailabl e Dorothy, Juli Penaius Gene Unavailable Unavailabl e Dorothy, Juli Penaius Gene Unavailable Unavailabl e DorothyJuliius Gene Unavailable Unavailabl e Dorothy, Juli Penaius Gene Unavailable Unavailabl e Dorothy, Juli Penaius Gene Unavailable Unavailabl e Dorothy, Juli Penaius Gene Unavailable Unavailabl e Dorothy, Juli Gurvinder Gene Unavailable Unavailabl e Dorothy, Juli Penaius Gene Unavailable Unavailabl e Dorothy, Juli Penaius Gene Unavailable Unavailabl e Dorothy, Juli Penaius Gene Unavailable Unavailabl e Dorothy, Juli Penaius Gene Unavailable Unavailabl e Dorothy, Juli Penaius Gene Unavailable Unavailabl e Dorothy, Juli Penaius Gene Unavailable Unavailabl e Dorothy, Juli Penaius Gene Unavailable Unavailabl e Dorothy, Juli Mcdonald MD Unavailable Unavailabl e Dorothy, Juli Mcdonald MD Unavailable Unavailabl e Dorothy, Juli Hollins Gene Unavailable Unavailabl e Dorothy, Juli Hollins Gene Unavailable Unavailabl e Dorothy, Juli Mcdonald MD Unavailable Unavailabl e Dorothy, Juli Mcdonald MD Unavailable Unavailabl e Dorothy, Juli Mcdonald MD Unavailable Unavailabl e Dorothy, Juli Mcdonald MD Unavailable Unavailabl e Dorothy, Juli Mcdonald MD Unavailable Unavailabl e Dorothy, Juli Mcdonald MD Unavailable Unavailabl e Dorothy, Juli Mcdonald MD Unavailable Unavailabl e Dorothy, Juli Mcdonald MD Unavailable Unavailabl e SHE D BRIGIDO AYALA Unavailable Unavailable SHE, Morgan FOFANA MD Unavailable Unavailable SHE, Morgan FOFANA MD Unavailable Unavailable SHE, Morgan FOFANA MD Unavailable Unavailable SHE, Morgan FOFANA MD Unavailable Unavailable SHE, Morgan FOFANA MD Unavailable Unavailable SHE, Morgan FOFANA MD Unavailable Unavailable SHE, Morgan FOFANA MD Unavailable Unavailable SHE, Morgan FOFANA MD Unavailable Unavailable SHE, Morgan FOFANA MD Unavailable Unavailable SHE, Morgan FOFANA MD Unavailable Unavailable SHE, Morgan FOFANA MD Unavailable Unavailable SHE, Morgan FOFANA MD Unavailable Unavailable SHE, Morgan FOFANA MD Unavailable Unavailable SHE, Morgan FOFANA MD Unavailable Unavailable SHE, Morgan FOFANA MD Unavailable Unavailable SHE, Morgan FOFANA MD Unavailable Unavailable SHE, Morgan FOFANA MD Unavailable Unavailable SHE, Morgan FOFANA MD Unavailable Unavailable SHE, Morgan FOFANA MD Unavailable Unavailable SHEMorgan MD Unavailable Unavailable SHEMorgan MD Unavailable Unavailable SHEMorgan MD Unavailable Unavailable SHEMorgan MD Unavailable Unavailable SHE, Morgan FOFANA MD Unavailable Unavailable SHE, Morgan FOFANA MD Unavailable Unavailable SHE, Morgan FOFANA MD Unavailable Unavailable SHEMorgan MD Unavailable Unavailable SHEMorgan MD Unavailable Unavailable SHEMorgan MD Unavailable Unavailable SHEMrogan MD Unavailable Unavailable SHEMorgan MD Unavailable Unavailable SHE, Morgan FOFANA MD Unavailable Unavailable SHE, Morgan FOFANA MD Unavailable Unavailable SHE, Morgan FOFANA MD Unavailable Unavailable SHE, Morgan FOFANA MD Unavailable Unavailable SHE, Morgan FOFANA MD Unavailable Unavailable SHEMorgan MD Unavailable Unavailable SHEMorgan MD Unavailable Unavailable SHEMorgan MD Unavailable Unavailable SHE, Morgan FOFANA MD Unavailable Unavailable SHE, Morgan FOFANA MD Unavailable Unavailable SHE, Morgan FOFANA MD Unavailable Unavailable SHE, Morgan FOFANA MD Unavailable Unavailable SHE, D BRIGIDO MD Unavailable Unavailable Morgan NOWAK MD Unavailable Unavailable Morgan NOWAK MD Unavailable Unavailable Kesha Carter MD Unavailable Unavailable Kesha Carter MD Unavailable Unavailable Kesha Carter MD Unavailable Unavailable Kesha Carter MD Unavailable Unavailable Kesha Carter MD Unavailable Unavailable Kesha Carter MD Unavailable Unavailable Kesha Carter MD Unavailable Unavailable Kesha Carter MD Unavailable Unavailable Kesha Carter MD Unavailable Unavailable Kesha Carter MD Unavailable Unavailable Kesha Carter MD Unavailable Unavailable Kesha Carter MD Unavailable Unavailable Kesha Carter MD Unavailable Unavailable Kesha Carter MD Unavailable Unavailable Kesha Carter MD Unavailable Unavailable Kesha Carter MD Unavailable Unavailable Kesha Carter MD Unavailable Unavailable Kesha Carter MD Unavailable Unavailable Kesha Carter MD Unavailable Unavailable Kesha Carter MD Unavailable Unavailable Kesha Carter MD Unavailable Unavailable Kesha Carter MD Unavailable Unavailable Kesha Carter MD Unavailable Unavailable SP [id number], E YAHIR [id number] Unavailable Unavailab le SP [id number], E YAHIR [id number] Unavailable Unavailab le SP [id number], E YAHIR [id number] Unavailable Unavailab le Graves, Navreet MBBS Unavailable Graves, Navreet MBBS Unavailable RANDY IGRALDO MD Unavailable Unavailable KRISTALRANDY PHILIP MD Unavailable Unavailable KRISTAL, RANDY AYALA Unavailable Unavailable KRISTALRANDY PHILIP MD Unavailable Unavailable KRISTALRANDY PHILIP MD Unavailable Unavailable KRISTALRANDY PHILIP MD Unavailable Unavailable KRISTALRANDY PHILIP MD Unavailable Unavailable KRISTALRANDY PHILIP MD Unavailable Unavailable KRISTALRANDY PHILIP MD Unavailable Unavailable KRISTALRANDY PHILIP MD Unavailable Unavailable KRISTALRANDY PHILIP MD Unavailable Unavailable RANDY GIRALDO MD Unavailable Unavailable RANDY GIRALDO MD Unavailable Unavailable RANDY GIRALDO MD Unavailable Unavailable RANDY GIRALDO MD Unavailable Unavailable KRISTALRANDY PHILIP MD Unavailable Unavailable KRISTAL, RANDY AYALA Unavailable Unavailable KRISTAL, RANDY AYALA Unavailable Unavailable KRISTAL, RANDY AYALA Unavailable Unavailable KRISTAL, RANDY AYALA Unavailable Unavailable KRISTAL, RANDY AYALA Unavailable Unavailable KRISTAL, RANDY AYALA Unavailable Unavailable KRISTAL, RANDY AYALA Unavailable Unavailable KRISTAL, RANDY AYALA Unavailable Unavailable KRISTAL, RANDY AYALA Unavailable Unavailable KRISTAL, RANDY MD Unavailable Unavailable KRISTAL, RANDY MD Unavailable Unavailable KRISTAL, RANDY MD Unavailable Unavailable KRISTAL, RANDY MD Unavailable Unavailable KRISTAL, RANDY MD Unavailable Unavailable KRISTAL, RANDY MD Unavailable Unavailable KRISTAL, RANDY MD Unavailable Unavailable KRISTAL, RANDY MD Unavailable Unavailable KRISTAL, RANDY MD Unavailable Unavailable KRISTAL, RANDY MD Unavailable Unavailable KRISTAL, RANDY MD Unavailable Unavailable KRISTAL, RANDY MD Unavailable Unavailable KRISTAL, RANDY MD Unavailable Unavailable KRISTAL, RANDY MD Unavailable Unavailable KRISTAL, RANDY MD Unavailable Unavailable CAMPOLI, A YAMIL DO Unavailable Unavailable CAMPOLI, A YAMIL DO Unavailable Unavailable CAMPOLI, A YAMIL DO Unavailable Unavailable CAMPOLI, A YAMIL DO Unavailable Unavailable CAMPOLI, A YAMIL DO Unavailable Unavailable CAMPOLI, A YAMIL DO Unavailable Unavailable TABBY, MELISSA MELO MD Unavailable Unavailable TABBY, MELISSA MELO MD Unavailable Unavailable TABBY, MELISSA MELO MD Unavailable Unavailable TABBY, MELISSA MELO MD Unavailable Unavailable TABBY, MELISSA MELO MD Unavailable Unavailable TABBY, MELISSA MELO MD Unavailable Unavailable TABBY, MELISSA MELO MD Unavailable Unavailable TABBY, MELISSA MELO MD Unavailable Unavailable TABBY, MELISSA MELO MD Unavailable Unavailable TABBY, MELISSA MELO MD Unavailable Unavailable TABBY, MELISSA MELO MD Unavailable Unavailable TABBY, MELISSA MELO MD Unavailable Unavailable TABBY, MELISSA MELO MD Unavailable Unavailable TABBY, MELISSA MELO MD Unavailable Unavailable TABBYMELISSA MD Unavailable Unavailable TABBY, MELISSA MELO MD Unavailable Unavailable ATBBY, MELISSA MELO MD Unavailable Unavailable TABBYMELISSA MD Unavailable Unavailable TABBY, MELISSA MELO MD Unavailable Unavailable TABBY, MELISSA MELO MD Unavailable Unavailable TABBY, MELISSA MELO MD Unavailable Unavailable TABBY, MELISSA MELO MD Unavailable Unavailable TABBY, MELISSA MELO MD Unavailable Unavailable TABBY, MELISSA MELO MD Unavailable Unavailable TABBY, MELISSA MELO MD Unavailable Unavailable TABBY, MELISSA MELO MD Unavailable Unavailable TABBY, MELISSA MELO MD Unavailable Unavailable TABBYANTONIONE LORIE MD Unavailable Unavailable MELISSA ANN MD Unavailable Unavailable MELISSA ANN MD Unavailable Unavailable MELISSA ANN MD Unavailable Unavailable MELISSA ANN MD Unavailable Unavailable MELISSA ANN MD Unavailable Unavailable MELISSA ANN MD Unavailable Unavailable MELISSA ANN MD Unavailable Unavailable MELISSA ANN MD Unavailable Unavailable MELISSA ANN MD Unavailable Unavailable TABBYMELISSA ATWOOD MD Unavailable Unavailable TABBYMELISSA ATWOOD MD Unavailable Unavailable TABBYMELISSA MD Unavailable Unavailable Zaccarini, Kyleigh RESIDENT Unavailable Unavailab le Zaccarini, Kyleigh RESIDENT Unavailable Unavailab le Zaccarini, Kyleigh RESIDENT Unavailable Unavailab le Zaccarini, Kyleigh RESIDENT Unavailable Unavailab le Zaccarini, Kyleigh RESIDENT Unavailable Unavailab le Zaccarini, Kyleigh RESIDENT Unavailable Unavailab le Zaccarini, Kyleigh RESIDENT Unavailable Unavailab le Zaccarini, Kyleigh RESIDENT Unavailable Unavailab le Zaccarini, Kyleigh RESIDENT Unavailable Unavailab le Zaccarini, Kyleigh RESIDENT Unavailable Unavailab le Zaccarini, Kyleigh RESIDENT Unavailable Unavailab le Zaccarini, Kyleigh RESIDENT Unavailable Unavailab le Zaccarini, Kyleigh RESIDENT Unavailable Unavailab le Zaccarini, Kyleigh RESIDENT Unavailable Unavailab le Zaccarini, Kyleigh RESIDENT Unavailable Unavailab le Zaccarini, Kyleigh RESIDENT Unavailable Unavailab Americo Moss MD Unavailable Unavailable Americo CHINCHILLA MD Unavailable Unavailable Americo CHINCHILLA MD Unavailable Unavailable Americo CHINCHILLA MD Unavailable Unavailable Americo CHINCHILLA MD Unavailable Unavailable Americo CHINCHILLA MD Unavailable Unavailable Americo CHINCHILLA MD Unavailable Unavailable Americo CHINCHILLA MD Unavailable Unavailable Americo CHINCHILLA MD Unavailable Unavailable Americo CHINCHILLA MD Unavailable Unavailable Americo CHINCHILLA MD Unavailable Unavailable Americo CHINCHILLA MD Unavailable Unavailable Americo CHINCHILLA MD Unavailable Unavailable Americo CHINCHILLA MD Unavailable Unavailable Americo CHINCHILLA MD Unavailable Unavailable Americo CHINCHILLA MD Unavailable Unavailable CHINCHILLA, C GRAHAME MD Unavailable Unavailable CHINCHILLA, C GRAHAME MD Unavailable Unavailable CHINCHILLA, C GRAHAME MD Unavailable Unavailable CHINCHILLA, C GRAHAME MD Unavailable Unavailable CHINCHILLA, C GRAHAME MD Unavailable Unavailable CHINCHILLA, C GRAHAME MD Unavailable Unavailable CHINCHILLA, C GRAHAME MD Unavailable Unavailable CHINCHILLA, C GRAHAME MD Unavailable Unavailable CHINCHILLA, C GRAHAME MD Unavailable Unavailable CHINCHILLA, C GRAHAME MD Unavailable Unavailable CHINCHILLA, C GRAHAME MD Unavailable Unavailable CHINCHILLA, C GRAHAME MD Unavailable Unavailable CHINCHILLA, C GRAHAME MD Unavailable Unavailable CHINCHILLA, C GRAHAME MD Unavailable Unavailable CHINCHILLA, C GRAHAME MD Unavailable Unavailable CHINCHILLA, C GRAHAME MD Unavailable Unavailable CHINCHILLA, C GRAHAME MD Unavailable Unavailable CHINCHILLA, C GRAHAME MD Unavailable Unavailable CHINCHILLA, C GRAHAME MD Unavailable Unavailable CHINCHILLA, C GRAHAME MD Unavailable Unavailable CHINCHILLA, C GRAHAME MD Unavailable Unavailable CHINCHILLA, C GRAHAME MD Unavailable Unavailable CHINCHILLA, C GRAHAME MD Unavailable Unavailable CHINCHILLA, C GRAHAME MD Unavailable Unavailable CHINCHILLA, C GRAHAME MD Unavailable Unavailable CHINCHILLA, C GRAHAME MD Unavailable Unavailable CHINCHILLA, C GRAHAME MD Unavailable Unavailable CHINCHILLA, C GRAHAME MD Unavailable Unavailable CHINCHILLA, C GRAHAME MD Unavailable Unavailable CHINCHILLA, C GRAHAME MD Unavailable Unavailable CHINHCILLA, C GRAHAME MD Unavailable Unavailable CHINCHILLA, C GRAHAME MD Unavailable Unavailable CHINCHILLA, C GRAHAME MD Unavailable Unavailable CHINCHILLA, C GRAHAME MD Unavailable Unavailable CHINCHILLA, C GRAHAME MD Unavailable Unavailable CHINCHILLA, C GRAHAME MD Unavailable Unavailable CHINCHILLA, C GRAHAME MD Unavailable Unavailable CHINCHILLA, C GRAHAME MD Unavailable Unavailable CHINCHILLA, C GRAHAME MD Unavailable Unavailable CHINCHILLA, C GRAHAME MD Unavailable Unavailable CHINCHILLA, C GRAHAME MD Unavailable Unavailable CHINCHILLA, C GRAHAME MD Unavailable Unavailable CHINCHILLA, C GRAHAME MD Unavailable Unavailable VERKirby ACKERMAN MD Unavailable Unavailable Kirby TRIANA MD Unavailable Unavailable VERKirby ACKERMAN MD Unavailable Unavailable VERKirby ACKERMAN MD Unavailable Unavailable VERKirby ACKERMAN MD Unavailable Unavailable VERKirby ACKERMAN MD Unavailable Unavailable VERKirby ACKERMAN MD Unavailable Unavailable VERKirby ACKERMAN MD Unavailable Unavailable VERKirby ACKERMAN MD Unavailable Unavailable Kirby TRIANA MD Unavailable Unavailable Kirby TRIANA MD Unavailable Unavailable VERKirby ACKERMAN MD Unavailable Unavailable VERKirby ACKERMAN MD Unavailable Unavailable VERKirby ACKERMAN MD Unavailable Unavailable VERTINO, Kirby FOFANA MD Unavailable Unavailable VERTINO, Kirby FOFANA MD Unavailable Unavailable VERTINO, Kirby FOFANA MD Unavailable Unavailable VERTINO, Kirby FOFANA MD Unavailable Unavailable VERTINO, Kirby FOFANA MD Unavailable Unavailable VERTINO, Kirby FOFANA MD Unavailable Unavailable VERTINO, Kirby FOFANA MD Unavailable Unavailable VERTINO, Kirby FOFANA MD Unavailable Unavailable VERTINO, Kirby FOFANA MD Unavailable Unavailable VERTINO, Kirby FOFANA MD Unavailable Unavailable VERTINO, Kirby FOFANA MD Unavailable Unavailable VERTINO, Kirby FOFANA MD Unavailable Unavailable VERTINO, Kirby FOFANA MD Unavailable Unavailable VERTINO, Kirby FOFANA MD Unavailable Unavailable VERTINO, Kirby FOFANA MD Unavailable Unavailable VERTINO, Kirby FOFANA MD Unavailable Unavailable VERTINO, Kirby FOFANA MD Unavailable Unavailable VERTINO, Kirby FOFANA MD Unavailable Unavailable VERTINO, Kirby FOFANA MD Unavailable Unavailable VERTINO, Kirby FOFANA MD Unavailable Unavailable VERTINO, Kirby FOFANA MD Unavailable Unavailable TABBY, MELISSA MELO MD Unavailable Unavailable TABBY, MELISSA MELO MD Unavailable Unavailable TABBY, MELISSA MELO MD Unavailable Unavailable TABBY, MELISSA MELO MD Unavailable Unavailable TABBY, MELISSA MELO MD Unavailable Unavailable TABBY, MELISSA MELO MD Unavailable Unavailable TABBY, MELISSA MELO MD Unavailable Unavailable TABBY, MELISSA MELO MD Unavailable Unavailable TABBY, MELISSA MELO MD Unavailable Unavailable TABBY, MELISSA MELO MD Unavailable Unavailable TABBY, MELISSA MELO MD Unavailable Unavailable TABBY, MELISSA MELO MD Unavailable Unavailable TABBY, MELISSA MELO MD Unavailable Unavailable TABBY, MELISSA MELO MD Unavailable Unavailable TABBY, MELISSA MELO MD Unavailable Unavailable TABBY, MELISSA MELO MD Unavailable Unavailable TABBY, MELISSA MELO MD Unavailable Unavailable TABBY, MELISSA MELO MD Unavailable Unavailable TABBY, MELISSA MELO MD Unavailable Unavailable TABBY, MELISSA MELO MD Unavailable Unavailable TABBY, MELISSA MELO MD Unavailable Unavailable TABBY, MELISSA MELO MD Unavailable Unavailable TABBY, MELISSA MELO MD Unavailable Unavailable TABBY, MELISSA MELO MD Unavailable Unavailable TABBY, MELISSA MELO MD Unavailable Unavailable TABBY, MELISSA MELO MD Unavailable Unavailable TABBY, MELISSA MELO MD Unavailable Unavailable TABBY, MELISSA MELO MD Unavailable Unavailable TABBY, MELISSA MELO MD Unavailable Unavailable TABBY, MELISSA MELO MD Unavailable Unavailable TABBY, MELISSA MELO MD Unavailable Unavailable TABBY, MELISSA MELO MD Unavailable Unavailable TABBY, MELISSA MELO MD Unavailable Unavailable TABBY, MELISSA MELO MD Unavailable Unavailable TABBY, MELISSA MELO MD Unavailable Unavailable TABBY, MELISSA MELO MD Unavailable Unavailable TABBY, MELISSA MELO MD Unavailable Unavailable TABBY, MELISSA MLEO MD Unavailable Unavailable TABBY, MELISSA MELO MD Unavailable Unavailable TABBY, MELISSA MELO MD Unavailable Unavailable PJ-BRANDON, ANDR Unavailable Unavailable Loveless, A Pastora GRAIN TRADER Unavailable Unavailable Loveless, A Pastora GRAIN TRADER Unavailable Unavailable Loveless, A Pastora GRAIN TRADER Unavailable Unavailable Loveless, A Pastora GRAIN TRADER Unavailable Unavailable Loveless, A Pastora GRAIN TRADER Unavailable Unavailable Loveless, A Pastora GRAIN TRADER Unavailable Unavailable Loveless, A Pastora GRAIN TRADER Unavailable Unavailable Loveless, A Pastora GRAIN TRADER Unavailable Unavailable Loveless, A Pastora GRAIN TRADER Unavailable Unavailable Loveless, A Pastora GRAIN TRADER Unavailable Unavailable Loveless, A Pastora GRAIN TRADER Unavailable Unavailable Loveless, A Pastora GRAIN TRADER Unavailable Unavailable Loveless, A Pastora GRAIN TRADER Unavailable Unavailable Loveless, A Pastora GRAIN TRADER Unavailable Unavailable Loveless, A Pastora GRAIN TRADER Unavailable Unavailable Loveless, A Pastora GRAIN TRADER Unavailable Unavailable Loveless, A Pastora GRAIN TRADER Unavailable Unavailable Loveless, A Pastora GRAIN TRADER Unavailable Unavailable Loveless, A Pastora GRAIN TRADER Unavailable Unavailable Loveless, A Pastora GRAIN TRADER Unavailable Unavailable Loveless, A Pastora GRAIN TRADER Unavailable Unavailable Loveless, A Pastora GRAIN TRADER Unavailable Unavailable Loveless, A Pastora GRAIN TRADER Unavailable Unavailable Loveless, A Pastora GRAIN TRADER Unavailable Unavailable Loveless, A Pastora GRAIN TRADER Unavailable Unavailable Loveless, A Pastora GRAIN TRADER Unavailable Unavailable Loveless, A Pastora GRAIN TRADER Unavailable Unavailable Loveless, A Pastora GRAIN TRADER Unavailable Unavailable Loveless, A Pastora GRAIN TRADER Unavailable Unavailable Loveless, A Pastora GRAIN TRADER Unavailable Unavailable Re-disclosure Warning The records that you are about to access may contain information from federally-assisted alcohol or drug abuse programs. If such information is present, then the following federally mandated warning applies: This information has been disclosed to you from records protected by federal confidentiality rules (42 CFR part 2). The federal rules prohibit you from making any further disclosure of this information unless further disclosure is expressly permitted by the written consent of the person to whom it pertains or as otherwise permitted by 42 CFR part 2. A general authorization for the release of medical or other information is NOT sufficient for this purpose. The Federal rules restrict any use of the information to criminally investigate or prosecute any alcohol or drug abuse patient.The records that you are about to access may contain highly sensitive health information, the redisclosure of which is protected by Article 27-F of the [facility] Public Health law. If you continue you may have access to information: Regarding HIV / AIDS; Provided by facilities licensed or operated by the [facility] Office of Mental Health; or Provided by the [facility] Office for People With Developmental Disabilities. If such information is present, then the following [facility] mandated warning applies: This information has been disclosed to you from confidential records which are protected by state law. State law prohibits you from making any further disclosure of this information without the specific written consent of the person to whom it pertains, or as otherwise permitted by law. Any unauthorized further disclosure in violation of state law may result in a fine or [place] [facility] sentence or both. A general authorization for the release of medical or other information is NOT sufficient authorization for further disc losure. Allergies and Adverse Reactions Type Description Substance Reaction Status Data Source(s ) Drug Class NO KNOWN ALLERGIES NO KNOWN ALLERGIES [facility] Niacin Niacin Niacin vomiting Active [facility]CW[facility] ([facility] Family History Family Member Name Family Member Gender Family Member Status Date o f Status Description Data Source(s) Unknown Unknown Problem [facility] ([facility]) Unknown Unknown Problem [facility] ([facility]) Unknown Male Problem MED[facility] ([facility]) () Unknown Male Problem MEDENT ([facility]) Encounters Encounter Providers Location Date Indications Data Source(s ) Outpatient Attender: Pastora Mendoza NP 06/24/2020 12:0 0:00 AM [facility] Office Visit Attender: RANDY GIRALDO MD Main office - [facility] 06/02/2020 05:30:00 PM EST [facility] ([facility]) Outpatient Attender: JOANIE CHINCHILLA MD 05/11/2020 12:00:00 AM EDT [facility] Outpatient Attender: Darleen MONTAÑO Main Office 05/06/2020 08:15:00 AM EDT [facility] ([facility] Outpatient Attender: Kyleigh PITT 12:00:00 AM EDT [facility] Outpatient Attender: RANDY GIRALDO MD Main office - [facility] 04/16/2020 02:00:00 PM EDT [facility] ([facility]) Inpatient Attender: BENITO WARD Admitter: BENITO WARDConsultant: BRIGIDO NOWAK MD [id number] 03/08/2020 12:00:00 AM EDT - 03/22/2020 03:11:00 PM EDT 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 Inpatient Attender: Gurvinder Guadalupe MDAttender: YAMIL KULKARNI DOAttender: BRIGIDO TRIANA MDAdmitter: BRIGIDO TRIANA MDReferrer: Merissa VIZCAINOBSConsultant: YAHIR SNOWDEN [id number] 03/04/2020 12:00: 00 AM EDT - 03/08/2020 12:30:00 PM EDT Cerebral infarction, unspecified [facility] Cerebral infarction, unspecified Patient discharged. Outpatient Attender: Darleen MONTAÑO Main Office 01/06/2020 08:00:00 AM EDT [facility] ([facility]) Outpatient Attender: Kesha Leroy/Laurel/Fermin/Michael ndkirby 12/30/2019 11:00:00 AM EDT [facility] ([facility] Outpatient Attender: Darleen MONTAÑO Main Office 10/30/2019 10:15:00 AM EDT [facility] ([facility] Center [address] [place] [phone] 10/15/2019 12:00:00 AM EDT eCW1 ([facility]) [facility] [address] [place] [phone] 09/17/2019 12:00:00 AM EST eCW1 ([facility]) [facility] [address] [place] [phone] 09/17/2019 12:00:00 AM EST eCW1 ([facility]) [facility] [address] [place] [phone] 09/12/2019 12:00:00 AM EST eCW1 ([facility]) [facility] [address] [place] [phone] 09/11/2019 12:00:00 AM EST eCW1 ([facility]) Outpatient 07/09/2019 12:15:00 PM EST [facility] Outpatient Referrer: LORIE ANN MD 06/09/2019 01:18:0 0 PM EST [facility] Radiology Imaging Outpatient Attender: LORIE Leroy/La[place] 06/05/2019 12:30:00 PM EST MEDENT ([facility] Medications Medication Brand Name Start Date Product Form Dose Route Admi nistrative Instructions Pharmacy Instructions Status Indications Reaction Description Data Source(s) 120 ACTUAT Albuterol 0.1 MG/ACTUAT / Ipr atropium [place] 0.02 MG/ACTUAT Metered Dose Inhaler [Combivent] Combivent Respimat 05/20/2020 12:00:00 AM EDT active MEDENT ([facility] Furosemide 20 MG Oral Tablet Furosemide 05/20/2020 12:00:00 AM EDT ORAL active MEDENT ([facility]) Prednisone 20 MG Oral Tablet Prednisone 05/20/2020 12:00:00 AM EDT active MEDENT ([facility]) Melatonin 3 MG Oral Capsule Melatonin 05/05/2020 12:00:00 AM EDT ORAL active MEDENT ([facility]) apixaban 2.5 MG Oral Tablet [Eliquis] Eliquis 05/05/2020 12:00:00 AM EDT ORAL active MEDENT ([facility]) Ascorbic Acid 60 MG / Beta Carotene 5000 UNT / Copper Sulfate 40 MG / dl-alpha tocopheryl acetate 30 UNT / Sodium Selenite 0.04 MG / Zinc Oxide 40 MG Oral Tablet Multivitamin Women 50+ 05/05/2020 12:00:00 AM EDT ORAL active MEDENT ([facility]) Cholecalciferol 1000 UNT Oral Capsule Vitamin D-3 05/05/2020 12:00 :00 AM EDT ORAL active MEDENT ([facility]) pantoprazole 40 MG Delayed Release Oral Tablet Pantoprazole Sodium 05/05/2020 12:00:00 AM EDT ORAL active M EDENT ([facility]) atorvastatin 80 MG Oral Tablet Atorvastatin Calcium 05/05/2020 1 2:00:00 AM EDT ORAL active MEDENT ( [facility]) 30 ACTUAT umeclidinium 0.0625 MG/ACTUAT / vilanterol 0.025 MG/ACTUAT Dry Powder Inhaler [Anoro] Anoro Ellipta 05/05/2020 12:00:00 AM EDT ORAL active MEDENT ([facility]) ropinirole 1 MG Oral Tablet Ropinirole HCL 05/05/2020 12:00:00 AM EDT ORAL active MEDENT ([facility]) Lisinopril 10 MG Oral Tablet Lisinopril 05/05/2020 12:00:00 AM EDT ORAL active MEDENT ([facility]) Metoprolol Tartrate 25 MG Oral Tablet Metoprolol Tartrate 12:00:00 AM EDT ORAL active MEDENT ([facility]) Lisinopril 10 MG Oral Tablet Lisinopril 10 MG Oral Tab let (ZESTRIL) Lisinopril 10 MG Oral Tablet (ZESTRIL) 03/23/2020 12:00:00 AM EDT 10 mg Oral active Take 1 tablet by mouth daily [facility] pantoprazole 40 MG Delayed Release Oral Tablet Pantoprazole Sodium 40 MG Oral Tablet Delayed Release (PROTONIX) Pantoprazole Sodium 40 MG Oral Tablet De layed Release (PROTONIX) 03/23/2020 12:00:00 AM EDT 40 mg Oral active Take 1 tablet by mouth every morning before breakfast [facility] Ascorbic Acid 60 MG / Beta Carotene 5000 UNT / Copper Sulfate 40 MG / dl-alpha tocopheryl acetate 30 UNT / Sodium Selenite 0.04 MG / Zinc Oxide 40 MG Oral Tablet Thera-M Oral Tablet Thera-M Oral Tablet 03/23/2020 12:00:00 AM EDT 1 {tbl} Oral active Take 1 tablet by mouth d aily [facility] Cholecalciferol 1000 UNT Oral Tablet Vit dillard D3 25 MCG (1000 UT) Oral Tablet (CHOLECALCIFEROL) Vitamin D3 25 MCG (1000 UT) Oral Tablet (CHOLECALCIFER OL) 03/23/2020 12:00:00 AM EDT 1000 U Oral active Take 1 tablet by mouth daily [facility] atorvastatin 80 MG Oral Tablet Atorvastatin Calcium 80 MG Oral Tablet (LIPITOR) Atorvastatin Calcium 80 MG Oral Tablet (LIPITOR) 03/22/2020 12:00:00 AM EDT 80 mg Oral active Take 1 tablet by mouth e very evening [facility] Acetaminophen 325 MG Oral Tablet Acetaminophen 325 MG Oral T ablet 03/22/2020 12:00:00 AM EDT 650 mg Oral active Take 2 tablets by mouth every 6 (six) hours as needed for Pain for up to 10 days [facility] apixaban 2.5 MG Oral Tablet Apixaban 2.5 MG Oral Table t (ELIQUIS) Apixaban 2.5 MG Oral Tablet (ELIQUIS) 03/22/2020 12:00:00 AM EDT 2.5 mg Oral active Take 1 tablet by mouth Two Times Daily [facility] Melatonin 5 MG Oral Tablet Melatonin 5 MG Oral Tablet 2019 12:00:00 AM EDT 5 mg Oral active Take 1 tablet by mouth nightly [facility] Metoprolol Tartrate 25 MG Oral Tablet Me toprolol Tartrate 25 MG Oral Tablet (LOPRESSOR) Metoprolol Tartrate 25 MG Oral Tablet (LOPRESSOR) 02/22 12:00:00 AM EDT 12.5 mg Oral active Take 0.5 tablets by mouth Two Times Daily [facility] Nystatin 054032 UNT/ML Oral Suspension N ystatin 671198 UNIT/ML Mouth/Throat Suspension (MYCOSTATIN) Nystatin 308320 UNIT/ML Mouth/Throat Mariann pension (MYCOSTATIN) 03/22/2020 12:00:00 AM EDT 550387 U Oral act felicita Take 5 mLs by mouth Four times daily [facility] Melatonin 5 MG Oral Tablet melatonin tablet 5 mg melatonin t ablet 5 mg 03/20/2020 10:00:00 PM EDT 5 mg Oral active 5 mg, Oral, Nightly, First dose on Sun03/20/20 at 2200, For 30 days [facility] Medication administered onsite Diclofenac Sodium 0.01 MG/MG Topical Gel Diclofenac Sodium (VOLTAREN) 1 % gel 2 g Diclofenac Sodium (VOLTAREN) 1 % gel 2 g 03/10/2020 09:00:00 PM EDT 2 g Topical aborted 2 g, Topical, Three Times Daily Standard, First dose on Sun03/10/20 at 2100, For 30 days
Apply to neck/upper trapezius where painful
[facility] Medication administered onsite Cholecalciferol 1000 UNT Oral Tablet vit dillard D3 (CHOLECALCIFEROL) tablet 1,000 Units vitamin D3 (CHOLECALCIFEROL) tablet 1,000 Units 2019 09:00:00 AM EDT 1000 U Oral active 1,000 Un its, Oral, Daily Standard, First dose on Sun03/10/20 at 0900, For 30 days
25 mcg vitamin D3 = 1,000 international units vitamin D3.
[facility] Medication administered onsite atorvastatin 40 MG Oral Tablet atorvastatin (LIPITOR) tablet 80 mg atorvastatin (LIPITOR) tablet 80 mg 03/09/2020 09:00:00 PM EDT 80 mg Oral active 80 mg, Oral, Every evening, First dose (after last modification) on Sun03/09/20 at 2100, For 30 days [facility] Medication administered onsite tiotropium - olodaterol (STIOLTO RESPIMAT) inhalation spray 2 puff [id number] 03/09/2020 09:00:00 AM EDT 2 {puff} Inhalation active 2 puff, Inhalation, Daily Standard, First dose on Sun03/09/20 at 0900, For 30 days [facility] Medication administered onsite Ascorbic Acid 60 MG / Beta Carotene 5000 UNT / Copper Sulfate 40 MG / dl-alpha tocopheryl acetate 30 UNT / Sodium Selenite 0.04 MG / Zinc Oxide 40 MG Oral Tablet Thera-M tablet 1 tablet Thera-M tablet 1 tablet 03/09/2020 09:00:00 AM EDT 1 {tbl} Oral active 1 tablet , Oral, Daily Standard, First dose (after last modification) on Sun03/09/20 at 0900, For 27 doses [facility] Medication administered onsite Lisinopril 10 MG Oral Tablet lisinopril (ZESTRIL) tabl et 10 mg lisinopril (ZESTRIL) tablet 10 mg 03/09/2020 09:00:00 AM EDT 10 mg Oral active 10 mg, Oral, Daily Standard, First dose (after last modification) on Sun03/09/20 at 0900, For 26 doses [facility] Medication administered onsite POLYETHYLENE GLYCOL 3350 142 MG/ML Oral Solution polyethylene glycol (MIRALAX) packet 17 g polyethylene glycol (MIRALAX) packet 17 g 03/09/2020 0 9:00:00 AM EDT 17 g Oral active 17 g, Or al, Daily Standard, First dose on Sun03/09/20 at 0900, For 30 days
Hold for Bowel Movement.
[facility] Medication administered onsite pantoprazole 40 MG Delayed Release Oral Tablet pantoprazole (PROTONIX) EC tablet 40 mg pantoprazole (PROTONIX) EC tablet 40 mg 03/09/2020 07:30:00 AM E DT 40 mg Oral active 40 mg, Ora l, Before Breakfast, First dose on Sun03/09/20 at 0730, For 30 days
Do not crush or chew
[facility] Medication administered onsite sennosides, JAIL 8.6 MG Oral Tablet senna tablet 1 tablet sen na tablet 1 tablet 03/08/2020 10:00:00 PM EDT 1 {tbl} Oral active 1 tablet, Oral, Nightly, First dose (after last modification) on Sun03/08/20 at 2200, For 30 doses [facility] Medication administered onsite metoprolol (LOPRESSOR) split tablet 12.5 mg [id number] 03/08/2020 09:00:00 PM EDT 12.5 mg Oral active 12.5 mg, Oral, 2 Times Daily, First dose (after last modification) on Sun03/08/20 at 2100, For 55 doses [facility] Medication administered onsite apixaban 2.5 MG Oral Tablet apixaban (ELIQUIS) tablet 2.5 mg apixaban (ELIQUIS) tablet 2.5 mg 03/08/2020 09:00:00 PM EDT 2.5 mg Oral acti ve 2.5 mg, Oral, 2 Times Daily, First dose (after last modification) on Sun03/08/20 at 2100, For 56 doses [facility] Medication administered onsite ropinirole 1 MG Oral Tablet ropinirole (REQUIP) tablet 1 mg ropinirole (REQUIP) tablet 1 mg 03/08/2020 05:00:00 PM EDT 1 mg Oral active 1 mg, Oral, Three Times Daily Standard, First dose (after last modification) on Sun03/08/20 at 1700, For 79 doses [facility] Medication administered onsite Nystatin 924418 UNT/ML Oral Suspension n ystatin (MYCOSTATIN) 900261 UNIT/ML suspension 500,000 Units nystatin (MYCOSTATIN) 724065 UNIT/ML mariann pension 500,000 Units 03/08/2020 05:00:00 PM EDT 729963 U Oral active 500,000 Units, Oral, Four Times Daily Standard, First dose on Sun03/08/20 at 1700, For 30 days
Swish and Swallow
[facility] Medication administered onsite Hydralazine Hydrochloride 10 MG Oral Tab let hydrALAZINE (APRESOLINE) tablet 25 mg hydrALAZINE (APRESOLINE) tablet 25 mg 03/08/2020 03:19:24 PM EDT 25 mg Oral active 25 mg, Oral, E very 6 hours PRN, SBP > 160 mmHg, Starting Sun03/08/20 at 1519, For 30 days
Check vital signs before administering
[facility] Medication administered onsite albuterol (PROVENTIL HFA) inhaler 2 puff [id number] 03/08/2020 02:40:40 PM EDT 2 {puff} Inhalation active 2 pu ff, Inhalation, Every 6 hours PRN, Wheezing, Starting Sun03/08/20 at 1440, For 15 days 18 hours
Shake the inhaler well before each spray.
[facility] Medication administered onsite Acetaminophen 325 MG Oral Tablet acetaminophen (TYLENO L) tablet 650 mg acetaminophen (TYLENOL) tablet 650 mg 03/08/2020 01:18:48 PM EDT 65 0 mg Oral active 650 mg, Oral, E very 6 hours PRN, Mild Pain (Pain Scale Score 1- 3), Moderate Pain (Pain Scale Score 4-6), Starting Sun03/08/20 at 1318, For 689 hours
Maximum daily dose of acetaminophen is 3,000 mg from all sources in 24 hours.
[facility] Medication administered onsite Bisacodyl 5 MG Delayed Release Oral Tablet bisacodyl ( DULCOLAX) EC tablet 10 mg bisacodyl (DULCOLAX) EC tablet 10 mg 03/08/2020 01:18:47 PM EDT 10 mg Oral active 10 mg, Oral, Keren ly PRN, Constipation, Starting Sun03/08/20 at 1318, For 30 days
Do not crush or chew
[facility] Medication administered onsite atorvastatin 80 MG Oral Tablet Atorvastatin Calcium 80 MG Oral Tablet (LIPITOR) Atorvastatin Calcium 80 MG Oral Tablet (LIPITOR) 03/08/2020 12:00:00 AM EDT 80 mg Oral aborted Take 1 tablet by mouth d [facility] apixaban 2.5 MG Oral Tablet Apixaban 2.5 MG Oral Table t (ELIQUIS) Apixaban 2.5 MG Oral Tablet (ELIQUIS) 03/08/2020 12:00:00 AM EDT 2.5 mg Oral aborted Take 1 tablet by mouth Two Times Daily [facility] Ascorbic Acid 60 MG / Beta Carotene 5000 UNT / Copper Sulfate 40 MG / dl-alpha tocopheryl acetate 30 UNT / Sodium Selenite 0.04 MG / Zinc Oxide 40 MG Oral Tablet Therapeutic M Oral Tablet Therapeutic M Oral Tablet 03/08/2020 12:00:00 AM EDT 1 {tbl} Oral aborted Take 1 tablet b y mouth daily [facility] Metoprolol Tartrate 25 MG Oral Tablet Me toprolol Tartrate 25 MG Oral Tablet (LOPRESSOR) Metoprolol Tartrate 25 MG Oral Tablet (LOPRESSOR) 02/20 12:00:00 AM EDT 12.5 mg Oral aborted Take 0.5 tablets by mouth Two Times Daily [facility] Acetaminophen 325 MG Oral Tablet acetaminophen (TYLENO L) tablet 650 mg acetaminophen (TYLENOL) tablet 650 mg 03/07/2020 06:36:03 AM EDT 65 0 mg Oral aborted 650 mg, Oral, E very 6 hours PRN, Mild Pain (Pain Scale Score 1- 3), Moderate Pain (Pain Scale Score 4-6), Starting 03/07/20 at 0636, For 719 hours
Maximum daily dose of acetaminophen is 3,000 mg from all sources in 24 hours.
[facility] Medication administered onsite apixaban 5 MG Oral Tablet apixaban (ELIQUIS) tablet 2. 5 mg apixaban (ELIQUIS) tablet 2.5 mg 03/06/2020 09:00:00 PM EDT 2.5 mg Oral abor deysi 2.5 mg, Oral, 2 Times Daily, First dose on 03/06/20 at 2100, For 30 days [facility] Medication administered onsite Ascorbic Acid 60 MG / Beta Carotene 5000 UNT / Copper Sulfate 40 MG / dl-alpha tocopheryl acetate 30 UNT / Sodium Selenite 0.04 MG / Zinc Oxide 40 MG Oral Tablet multivitamin therapeutic M tablet 1 tablet multivitamin therapeutic M tablet 1 tablet 03/06/2020 09:00:00 AM EDT 1 {tbl} Oral a borted 1 tablet, Oral, Daily Standard, First dose on 03/06/20 at 0900, For 30 days [facility] Medication administered onsite metoprolol (LOPRESSOR) split tablet 12.5 mg [id number] 03/06/2020 09:00:00 AM EDT 12.5 mg Oral aborted 12.5 mg, Oral, 2 Times Daily, First dose on 03/06/20 at 0900, For 30 days [facility] Medication administered onsite magnesium sulfate in dextrose 5 % infusion (premix) 8 mEq [id number] 03/06/2020 08:45:00 AM EDT 8 meq Intravenous completed 8 mEq, Intravenous, Administer over 60 Minutes, Once, 03/06/20 at 0845, For 1 dose
each 8 mEq equivalent to 1 gm
[facility] Medication administered onsite 0.4 ML Enoxaparin sodium 100 MG/ML Prefi lled Syringe enoxaparin sodium (LOVENOX) injection 40 mg enoxaparin sodium (LOVENOX) injection 40 mg 03/05/2020 09:00:00 AM EDT 40 mg Subcutaneous aborted 40 mg, Subcutaneous, Daily Standard, First dose on Sun03/05/20 at 0900, For 30 days [facility] Medication administered onsite atorvastatin 40 MG Oral Tablet atorvastatin (LIPITOR) tablet 80 mg atorvastatin (LIPITOR) tablet 80 mg 03/05/2020 09:00:00 AM EDT 80 mg Oral aborted 80 mg, Oral, Daily Standard, First dose on Sun03/05/20 at 0900, For 30 days [facility] Medication administered onsite Aspirin 81 MG Chewable Tablet aspirin chewable tablet 81 mg aspirin chewable tablet 81 mg 03/05/2020 09:00:00 AM EDT 81 mg Oral abort ed 81 mg, Oral, Daily Standard, First dose on Sun03/05/20 at 0900, For 30 days
Chew tablet before swallowing.
[facility] Medication administered onsite Lisinopril 10 MG Oral Tablet lisinopril (ZESTRIL) tabl et 10 mg lisinopril (ZESTRIL) tablet 10 mg 03/05/2020 09:00:00 AM EDT 10 mg Oral aborted 10 mg, Oral, Daily Standard, First dose on Sun03/05/20 at 0900, For 30 days [facility] Medication administered onsite perflutren lipid microspheres (DEFINITY) injectable suspensi on 9.78 mg [id number] 03/05/2020 05:34:37 AM EDT 1.5 mL Intravenous completed 9.78 mg (1.5 mL), Intravenous, Once PRN, Other, Echo imaging enhancement, Starting Sun03/05/20 at 0534, For 72 hours [facility] Medication administered onsite ropinirole 1 MG Oral Tablet ropinirole (REQUIP) tablet 1 mg ropinirole (REQUIP) tablet 1 mg 03/04/2020 09:00:00 PM EDT 1 mg Oral aborte d 1 mg, Oral, Three Times Daily Standard, First dose on Sun03/04/20 at 2100, For 30 days [facility] Medication administered onsite NaCl infusion 0.9 % [id number] 03/04/2020 07:30:00 PM EDT Intravenous aborted at 50 mL/hr, Intrave nous, Continuous, Starting Sun03/04/20 at 1930, For 30 days [facility] Medication administered onsite Hydralazine Hydrochloride 20 MG/ML Injec table Solution hydrALAZINE (APRESOLINE) injection 10 mg hydrALAZINE (APRESOLINE) injection 10 mg 03/04/2020 07 :17:26 PM EDT 10 mg Intravenous aborted 10 m g, Intravenous, Every 6 hours PRN, Other, FOR sbp>220, Starting Radha 03/04/20 at 1917, For 30 days
Dilute in 25- 50 ml normal saline. Administer over 30 minutes.
[facility] Medication administered onsite iohexol (OMNIPAQUE) 350 MG/ML contrast injection 125 mL [id number] 03/04/2020 02:15:00 PM EDT 125 mL Given by IV completed 125 mL, Given by IV, 1 TIME IMAGING, [facility] 03/04/20 at 1415, For 1 dose [facility] Medication administered onsite Prednisone 20 MG Oral Tablet Prednisone 02/03/2020 12:00:00 AM EDT ORAL active MEDENT ([facility], ) Azithromycin 250 MG Oral Tablet Azithromycin 02/03/2020 12:00:00 AM E DT ORAL active MEDENT ([facility], ) 30 ACTUAT umeclidinium 0.0625 MG/ACTUAT / vilanterol 0.025 MG/ACTUAT Dry Powder Inhaler [Anoro] Anoro Ellipta 02/03/2020 12:00:00 AM EDT RESPIRA TORY active MEDENT ([facility]) 200 ACTUAT Albuterol 0.09 MG/ACTUAT Metered Dose Inhaler [Pr oAir] Proair HFA 01/05/2020 12:00:00 AM EDT RESPIRATORY active MEDENT ([facility]) Amlodipine 5 MG Oral Tablet Amlodipine Besylate 11/13/2019 12:00:00 A M EDT ORAL completed [facility] ([facility]) Lisinopril 20 MG Oral Tablet Lisinopril 10/30/2019 12:00:00 AM EDT ORAL active [facility] ([facility]) Aspirin 81 MG Delayed Release Oral Tablet Aspirin 10/29/2019 1 2:00:00 AM EDT ORAL active MEDENT ([facility]) Atenolol 25 MG Oral Tablet Atenolol 10/29/2019 12:00:00 AM EDT ORAL active MEDENT ([facility]) Amlodipine 5 MG Oral Tablet amLODIPine Besylate 5 MG O ral Tablet (NORVASC) amLODIPine Besylate 5 MG Oral Tablet (NORVASC) 5 mg Oral aborted Take 5 mg by mouth daily [facility] Atenolol 25 MG Oral Tablet Atenolol 25 MG Oral Tablet (TENORMIN) Atenolol 25 MG Oral Tablet (TENORMIN) 25 mg Oral aborted T michelle 25 mg by mouth daily [facility] Lisinopril 20 MG Oral Tablet Lisinopril 20 MG Oral Tab let (ZESTRIL) Lisinopril 20 MG Oral Tablet (ZESTRIL) 20 mg Oral aborted Take 20 mg by mouth daily [facility] Insurance Providers Payer name Policy type / Coverage type Policy ID Covered alliance party ID Covered alliance party's relationship to phillips Policy Phillips Plan Information MEDICARE [id number] SP [id number] FOR LIFE [id number] SP [id number] MEDICARE C [id number] S [id number] [id number] FOR LIFE O [id number] S [id number] FOR LIFE U [id number] Self [id number] MEDICARE A [id number] Self [id number] Medicare Part B [facility] Other 0 Se lf 0 [facility] Health[facility] [employer] Commercial [id number] Family Dependent 2 [id number] Plus [employer] Commercial [id number] Family Dependent [id number] For Life - WPS Medigap Part B [id number] Self [id number] Medicare (Part B) Medicare Primary [id number] Self [id number] WPS For Life Medigap Part B [id number] Self [id number] [place] Primary [id number] Self [id number] ANSI-Commercial [id number] ANSI-Medicare Part B [id number] ANSI-Medicare Part B [id number] ANSI-Commercial [id number] [facility]-Medicare Part B [id number] [facility] [id number] Penxy [id number] Family Dependent 2 [id number] Folkstr [id number] Family Dependent [id number] For Life - WPS Medigap Part B [id number] Self [id number] Medicare (Part B) Medicare Primary [id number] Self [id number] Penxy [id number] Family Dependent 2 [id number] Folkstr [id number] Family Dependent [id number] For Life - WPS Medigap Part B [id number] Self [id number] Medicare (Part B) Medicare Primary [id number] Self [id number] MEDICARE [id number] SP [id number] MEDICARE [id number] SP [id number] D WPS For Life Medigap Part B [id number] Self [id number] Medicare [facility] Medicare Primary [id number] Self [id number] For Life WPS Medigap Part B [id number] Family Depende nt [id number] Medicare Natl Gov't Servi Medicare Primary [id number] Self [id number] WPS For Life Medigap Part B [id number] Self [id number] Medicare [facility] Medicare Primary [id number] Self [id number] Penxy [id number] Family Dependent 2 [id number] Folkstr [id number] Family Dependent [id number] For Life - WPS Medigap Part B [id number] Self [id number] Medicare (Part B) Medicare Primary [id number] Self [id number] For Life WPS Medigap Part B [id number] Family Depende nt [id number] Medicare Natl Gov't Servi Medicare Primary [id number] Self [id number] For Life Medigap Part B [id number] Family Dependent [id number] Medicare [facility] Medicare Primary [id number] Self [id number] WPS For Life Medigap Part B [id number] Self [id number] Medicare [facility] Medicare Primary [id number] Self [id number] For Life - WPS Medigap Part B [id number] Family Dependent [id number] Medicare [facility] Medicare Primary [id number] Self [id number] FOR LIFE U [id number] Self [id number] MEDICARE A [id number] Self [id number] D FOR LIFE [id number] SP [id number] MEDICARE [id number] SP [id number] D FOR LIFE [id number] SP [id number] Medicare (Part B) Medicare Primary Self [employer] [employer] Family Dependent Plus [employer] Commercial Family Dependent For Life - WPS Medigap Part B Self For Life Medigap Part B Family Dependent Medicare [facility] Medicare Primary Self FOR LIFE O [id number] S [id number] MEDICARE PART A M [id number] S [id number] MEDICARE [place] M [id number] S [id number] [employer] FEDERAL O [id number] S [id number] MEDICARE M [id number] S [id number] D Medicare Medicare Primary Self FOR LIFE -O/P [id number] 01 [id number] MEDICARE -O/P [id number] 18 [id number] MEDICARE P [id number] S [id number] D FOR LIFE U [id number] Spouse [id number] D Problems, Conditions, and Diagnoses Code Display Name Description Problem Type Effective Dates Data Source(s) 361975333 Pure hypercholesterolemia Pure hypercholesterolemia Pr oblem 05/06/2020 12:00:00 AM EDT MEDENT ([facility]) [id number] Obstructive sleep apnea syndrome Obstructive sle ep apnea syndrome Problem 05/06/2020 12:00:00 AM EDT MEDENT ([facility]) 2865788 Aortic valve disorder Aortic valve disorder Problem 10/30/2019 12:00:00 AM EDT [facility] ([facility]) [id number] Trifascicular block Trifascicular block Problem 0 10/30/2019 12:00:00 AM EDT [facility] ([facility]) [id number] Paroxysmal atrial fibrillation Paroxysmal atrial fibri llation Problem 10/30/2019 12:00:00 AM EDT [facility] ([facility]) Z51.5 Encounter for palliative care Encounter for palliative care [facility] (cere[facility] vascular accident) CVA (cerebral vascula r accident) Diagnosis 03/08/2020 01:06:00 PM [facility] Stroke Stroke Diagnosis 03/08/2020 01:06:00 PM ED [facility] Z74.09 Other reduced mobility Other reduced mobility Diagnosi s 03/08/2020 12:05:06 PM [facility] I63.532 Cerebral infarction due to u nspecified occlusion or stenosis of left posterior cerebral artery Cerebral infarction due to unspecified o cclusion or stenosis of left posterior cerebral artery Diagnosis 03/08/2020 12:04: [facility] I35.9 Nonrheumatic aortic valve disorder, unsp ecified Nonrheumatic aortic valve disorder, unspecified Diagnosis 03/08/2020 12:04:51 PM EDT [facility] I50.32 Chronic diastolic (congestive) heart shaye lure Chronic diastolic (congestive) heart failure Diagnosis 03/08/2020 12:04:49 PM EDT [facility] I15.9 Secondary hypertension, unspecified Secondary hy pertension, unspecified Diagnosis 03/08/2020 12[facility]04[facility] I48.0 Paroxysmal atrial fibrillation Paroxysmal atrial fibri llation Diagnosis 03/08/2020 12:04:45 PM [facility] I45.3 Trifascicular block Trifascicular block Diagnosis 0 03/08/2020 12:04:43 PM [facility] W19.XXXA Unspecified fall, initial encounter Unsp ecified fall, initial encounter Diagnosis 03/04/2020 01:59:00 PM EDT [facility] Z20.828 Contact with and (suspected) exposure to other viral communicable diseases Contact with and (suspected) exposure to other viral communicable diseases Diagnosis 03/04/2020 01:59:00 PM EDT [facility] I45.10 Unspecified right bundle-branch block Un specified right bundle-branch block Diagnosis 03/04/2020 01:59:00 PM EDT [facility] H53.8 Other visual disturbances Other visual disturbances Di agnosis 03/04/2020 [facility]59[facility] I63.9 Cerebral infarction, unspecified Cerebral infarc tion, unspecified Diagnosis 03/04/2020 01[facility]59:[facility]ced[facility] Procedure Description Date Indications Data Source(s) ELECTROENCEPHALOGRAM W/REC AWAKE&ASLEEP 05/27/2020 12: 00:00 AM EST [facility] ([facility], ) ELECTROENCEPHALOGRAM W/REC AWAKE&ASLEEP 05/27/2020 12: 00:00 AM EST [facility] ([facility], ) ECG ROUTINE ECG W/LEAST 12 LDS W/I&R 05/06/2020 12:00: 00 AM EDT [facility] ([facility]) BLOOD COUNT COMPLETE AUTO&AUTO DIFRNTL WBC COUNT CBC AND DIFFER ENTIAL Routine 03/18/2020 5:03 AM EDT 03/18/2020 05[facility]03[facility] THYROID STIMULATING HORMONE TSH TSH Routine 03/18/2020 5:03 AM EDT 03/18/2020 05:03[facility] BASIC METABOLIC PANEL CALCIUM TOTAL BASIC METABOLIC PANEL Routi ne 03/18/2020 5:03 AM EDT 03/18/2020 05:03:00 AM EDT [facility] URNLS DIP STICK/TABLET REAGENT AUTO MICROSCOPY URINAL YSIS WITH REFLEX URINE CULTURE Routine 03/16/2020 6:13 PM EDT 03/16/2020 06:13 :[facility] DUP-SCAN XTR VEINS UNILATERAL/LIMITED STUDY US DOPPLE R LOWER EXTREMITY UNILATERAL VENOUS LIMITED [id number] Routine 03/16/2020 1:56 PM EDT 03/16/2020 01:56:23 PM [facility] BLOOD COUNT COMPLETE AUTO&AUTO DIFRNTL WBC COUNT CBC AND DIFFER ENTIAL Routine 03/16/2020 11:40 AM EDT 03/16/2020 11:40:[facility] BASIC METABOLIC PANEL CALCIUM TOTAL BASIC METABOLIC PANEL Routi ne 03/15/2020 6:06 AM EDT 03/15/2020 06:06:00 AM EDT [facility] OXIMETRY CONTINUOUS OVERNIGHT WITH RECORDING OXIMETRY CONTINUOUS OVERNIGHT WITH RECORDING Routine 03/12/2020 8:52 AM EDT 03/12/2020 08:5 2:51 AM [facility] OXIMETRY CONTINUOUS OVERNIGHT WITH RECORDING OXIMETRY CONTINUOUS OVERNIGHT WITH RECORDING Routine 03/11/2020 2:49 PM EDT 03/11/2020 02:4 9:27 PM [facility] OXIMETRY CONTINUOUS OVERNIGHT WITH RECORDING OXIMETRY CONTINUOUS OVERNIGHT WITH RECORDING Routine 03/11/2020 2:49 PM EDT 03/11/2020 02:4 9:27 PM [facility] 25 HYDROXY INCLUDES FRACTIONS IF PERFORMED VITAMIN D 25 HYDROXY , TOTAL Routine 03/09/2020 6:22 AM EDT 03/09/2020 06:22:00 AM [facility] BLOOD COUNT COMPLETE AUTO&AUTO DIFRNTL WBC COUNT CBC AND DIFFER ENTIAL Routine 03/09/2020 6:22 AM EDT 03/09/2020 06:22:00 AM [facility] COMPREHENSIVE METABOLIC PANEL COMPREHENSIVE METABOLIC PANEL Rou garry 03/09/2020 6:22 AM EDT 03/09/2020 06:22:00 AM EDT [facility] BLOOD COUNT COMPLETE AUTO&AUTO DIFRNTL WBC COUNT CBC AND DIFFER ENTIAL Routine 03/08/2020 3:58 AM EDT 03/08/2020 03:58:00 AM [facility] BLOOD COUNT COMPLETE AUTO&AUTO DIFRNTL WBC COUNT CBC AND DIFFER ENTIAL Routine 03/07/2020 4:03 AM EDT 03/07/2020 04:03:00 AM [facility] EKG 12-LEAD - CMAXX REPORT EKG 12-LEAD - CMAXX REPORT 03/07/2020 1:06 AM EDT 03/07/2020 01:06:01 AM EDT [facility] EKG 12-LEAD - CMAXX REPORT EKG 12-LEAD - CMAXX REPORT 03/07/2020 1:06 AM EDT 03/07/2020 01:06:01 AM EDT [facility] EKG 12-LEAD EKG 12-LEAD Routine 03/07/2020 1:06 AM EDT 03/07/2020 01:06:01 AM [facility] EKG 12-LEAD - CMAXX REPORT EKG 12-LEAD - CMAXX REPORT 03/06/2020 8:13 AM EDT 03/06/2020 08:13:23 AM EDT [facility] EKG 12-LEAD - CMAXX REPORT EKG 12-LEAD - CMAXX REPORT 03/06/2020 8:13 AM EDT 03/06/2020 08:13:23 AM EDT [facility] EKG 12-LEAD EKG 12-LEAD Routine 03/06/2020 8:13 AM EDT 03/06/2020 08:13:[facility] 12-LEAD EKG 12-LEAD Routine 03/06/2020 8:13 AM EDT 03/06/2020 08:13:23 AM [facility] BLOOD COUNT COMPLETE AUTO&AUTO DIFRNTL WBC COUNT CBC AND DIFFER ENTIAL Routine 03/06/2020 3:49 AM EDT 03/06/2020 03:49:00 AM [facility] PHOSPHORUS INORGANIC PHOSPHORUS LEVEL Routine 03/06/2020 3:49 AM E DT 03/06/2020 03:49:[facility] MAGNESIUM MAGNESIUM LEVEL Routine 03/06/2020 3:49 AM EDT 03/06/2020 03:49:00 AM [facility] BASIC METABOLIC PANEL CALCIUM TOTAL BASIC METABOLIC PANEL Routi ne 03/06/2020 3:49 AM EDT 03/06/2020 03:49:00 AM EDT [facility] ECHOCARDIOGRAM COMPLETE WITH BUBBLE STUDY ECHOCARDIOG SAGAR COMPLETE WITH BUBBLE STUDY Routine 03/05/2020 3:11 PM EDT 03/05/2020 03:11 :36 PM [facility] HEMOGLOBIN GLYCOSYLATED A1C HEMOGLOBIN A1C Routine 03/05/2020 2:08 PM EDT 03/05/2020 02:08:00 PM [facility] PROTHROMBIN TIME PROTIME INR Routine 03/05/2020 1:22 PM EDT 03/05/2020 01:22:00 PM [facility] TROPONIN QUANTITATIVE TROPONIN T Routine 03/05/2020 1:22 PM EDT 03/05/2020 01:22:00 PM [facility] THYROID STIMULATING HORMONE TSH TSH Routine 03/05/2020 1:22 PM EDT 03/05/2020 01:22:00 PM [facility] LIPID PANEL LIPID PANEL Routine 03/05/2020 1:22 PM EDT 03/05/2020 01:22:00 PM EDT [facility] MRI BRAIN BRAIN STEM W/O CONTRAST MATERIAL MR BRAIN WITHOUT CONTRAST [id number] STAT 03/05/2020 5:14 AM EDT 03/05/2020 05:14:07 AM EDT [facility] BLOOD COUNT COMPLETE AUTO&AUTO DIFRNTL WBC COUNT CBC AND DIFFER ENTIAL Routine 03/05/2020 4:17 AM EDT 03/05/2020 04:17:00 AM EDT [facility] TROPONIN QUANTITATIVE TROPONIN T Routine 03/05/2020 4:17 AM EDT 03/05/2020 04:17:00 AM EDT [facility] BASIC METABOLIC PANEL CALCIUM TOTAL BASIC METABOLIC PANEL Routi ne 03/05/2020 4:17 AM EDT 03/05/2020 04:17:00 AM EDT [facility] XR CHEST FRONTAL ONLY [id number] XR CHEST FRONTAL ONLY [id number] STAT 03/04/2020 2:50 PM EDT 03/04/2020 02:50:25 PM EDT [facility] EKG ED PHYSICIAN INTERPRETATION EKG ED PHYSICIAN INTERPRETATION Routine 03/04/2020 2:28 PM EDT 03/04/2020 02:28:46 PM EDT [facility] BASIC METABOLIC PANEL CALCIUM IONIZED POCT ISTAT CHEM8 Routine 03/04/2020 2:26 PM EDT 03/04/2020 02:26:00 PM EDT [facility] BLOOD GASES ANY COMBINATION PH PCO2 PO2 CO2 HCO3 POCT ISTAT VBG /LAC Routine 03/04/2020 2:23 PM EDT 03/04/2020 02:23:00 PM EDT [facility] TROPONIN QUANTITATIVE POCT ISTAT TROPONIN Routine 03/04/2020 2:21 PM EDT 03/04/2020 02:21:00 PM EDT [facility] UH COVID-19 PCR UH COVID-19 PCR STAT 03/04/2020 2:20 PM EDT 03/04/2020 02:20:00 PM EDT [facility] RESPIRATORY PANEL RESPIRATORY PANEL Routine 03/04/2020 2:20 PM EDT 03/04/2020 02:20:00 PM EDT [facility] THROMBOPLASTIN TIME PARTIAL PLASMA/WHOLE BLOOD PARTIA L THROMBOPLASTIN TIME (PTT) STAT 03/04/2020 2:20 PM EDT 03/04/2020 02:20 :00 PM EDT [facility] PROTHROMBIN TIME PROTIME INR STAT 03/04/2020 2:20 PM EDT 03/04/2020 02:20:00 PM EDT [facility] BLOOD COUNT COMPLETE AUTO&AUTO DIFRNTL WBC COUNT CBC AND DIFFER ENTIAL STAT 03/04/2020 2:20 PM EDT 03/04/2020 02:20:00 PM EDT [facility] TROPONIN QUANTITATIVE TROPONIN T Routine 03/04/2020 2:20 PM EDT 03/04/2020 [facility] MAGNESIUM MAGNESIUM LEVEL STAT 03/04/2020 2:20 PM EDT 03/04/2020 02:20:00 PM EDT [facility] HEPATIC FUNCTION PANEL HEPATIC FUNCTION PANEL A STAT 0 2:20 PM EDT 03/04/2020 02:20:00 PM EDT [facility] BASIC METABOLIC PANEL CALCIUM TOTAL BASIC METABOLIC PANEL STAT 03/04/2020 2:20 PM EDT 03/04/2020 02:20:00 PM EDT [facility] CT ANGIOGRAPHY NECK W/CONTRAST/NONCONTRAST CT ANGIOGRAPHY NECK 19135 CODE 03/04/2020 2:15 PM EDT 03/04/2020 02:15:00 PM EDT [facility] CT ANGIOGRAPHY HEAD W/CONTRAST/NONCONTRAST CT ANGIOGRAPHY HEAD [id number] CODE 03/04/2020 2:15 PM EDT 03/04/2020 02:15:00 PM EDT [facility] EKG 12-LEAD - CMAXX REPORT EKG 12-LEAD - CMAXX REPORT 03/04/2020 2:14 PM EDT 03/04/2020 02:14:55 PM EDT [facility] EKG 12-LEAD - CMAXX REPORT EKG 12-LEAD - CMAXX REPORT 03/04/2020 2:14 PM EDT 03/04/2020 02:14:55 PM EDT [facility] EKG 12-LEAD EKG 12-LEAD STAT 03/04/2020 2:14 PM EDT 03/04/2020 02:14:55 PM EDT [facility] EKG 12-LEAD - CMAXX REPORT EKG 12-LEAD - CMAXX REPORT 03/04/2020 2:14 PM EDT 03/04/2020 02:14:00 PM EDT [facility] CEREBRAL PERFUSION ANALYS CT W/BLOOD FLOW&VOLUME CT C EREBRAL PERFUSION WITH CONTRAST 0042T CODE 03/04/2020 2:10 PM EDT 03/04/2020 02:10:00 PM EDT [facility] Spirometry 12/30/2019 12:00:00 AM EDT M [facility] ([facility]) Monitor 48HR-21Days; Recording(Connection+Recording) 11/07/2019 12:00:00 AM EDT [facility] ([facility]) [id number]; review + interpretation 11/07/2019 12:00:00 AM EDT [facility] ([facility]) ECG ROUTINE ECG W/LEAST 12 LDS W/I&R 10/30/2019 12:00: 00 AM EDT [facility] ([facility]) CYSTOSCOPY 09/17/2019 12:00:00 AM EST e CW1 ([facility]) Results ID Date Data Source [id number] 05/18/2020 02:27:00 PM EDT [facility] ([facility]) Name Value Range Interpretation Code Description Data Belkys rce(s) Supporting Document(s) Thyroid Stimulating Hormone 0.671 [facility] ([facility]) ID Date Data Source [id number] 05/18/2020 02:27:00 PM EDT [facility] ([facility]) Name Value Range Interpretation Code Description Data Belkys rce(s) Supporting Document(s) White Blood Count 9.6 4.0-10.0 [facility] ([facility]) Platelets 252 150-450 [facility] ([facility]) Hemoglobin 11.4 [facility] ([facility]) Red Blood Count 4.03 4.00-5.40 [facility] ([facility]) Hematocrit 37.7 [facility] ([facility]) ID Date Data Source [id number] 03/22/2020 03:44:39 PM EDT [facility] Name Value Range Interpretation Code Description Data Belkys rce(s) Supporting Document(s) Discharge Summary [facility] XXETWp7uUiVPUiSp11/WWDswSJAwz9LbMNqqUQi2YZplEWFxJ6HyETO7gU9bPJH7DOnOGfEwZtZyNWXu lbm PjRrzILnCeBAQaShyKYiBqHAkrNxtmtUNsRY1JgIF3OPTbQ09rHRHaRECvG1XuYMIuTNF+Pq3JBIHfzZ UwLF4LMdvG3Bvkl4m91lxC6Y/EaW2ocS4/ESKfRX7x/Icw6d3eD92mNV5uLy0wLzyDSmp6h/qMRxU42z MiErPOjEazS7KtcUkDnNCHfsM44tc1i3OxMLf5O/1U SeHYJoxeM7j6EWyaYv1HWYSMvOHOux0gv8l+/8GBjmP8CFZYrmXe2TX025YGwh2Oq/2a5h55cx4yyvdg sbfLSco+brpaqOXrGcIe7qSGR5c/v+kse48gSIKDdnxajzxJGyET3Iv8Tc77V9qcg2BRHU8xmZKNG1Ez 5sGqmHeMVCJC/4jASJkDnpaxbktD4FKyu/KL3+IWJQ Xku3Yg1FPyqAa6QIQ0bM8m0TqafAMbDwdnoX1S7bV6gywHB8ejn4dPVuS9CR7807iFC9A/ZpkdxJnwgt F09FCKphMh30VoDyE1FR4ePkf3XOz7bph1S0+WOoARghsGe3dTslwPmqvFyme930tlPlxKdCVuNNLoms DlvIar5JFpaVspVXMArs7ifCXxf+2PyU8nXWVHOupg Q/+X/yGPayV0FvaT7o8zwLohP0lxtlAAXbQB2DL56DnF9mtGyx8L8gdxog0DBY2KQ136Lkxhmp4hZRsN 0JLv7oveKRuSQVYyu5u3BVOpUlm8UgVs8polVCaozQhedhXzslC8JfTd9c9p1Seoa9H4HKKTCkbu+Leslie 1UqxyI7bFhqXHAVuQs5bTYvO1ucIRObTg9TaEBqGKh jWtdpdZ8AIrSNtKy6ueNc72Lhy6Ajz5piA1mwoUa3y/ZH/EEgypHFNt6nUuA9Lcddhra/q99oWdFEB53 fcnqizquW8Ii0AY2Mv/May+AJoPVKr7wP8WeHQ+MhgZST+9nQYJjyUpZfun10BdNmjCD53Egs+EjyLXoz 1GZrFmEcVYYzRYUVNN0ItYS8HaSOSBsAEXHfJxvEfX JPxAUHJJdFSe3CvBFSqSWrBYubgfUmb9UocRU5K0HgCKJcK4YjZwp5USXP2PoRGbEEQDQmKy0Sz8aHHF MggRnUN/5hC1ebNmdUX2UCprdVGNfhuuWd0C81azt5hUziZlvU1ld/O9IXlpuTGHdu8esf/P3Nbu4eyN fESQVbNSRU22tf2DjGiTK1Q7euXkwM3NEiV193C/Willam [file] John Paul/4EsRkuFuTIorcEywDldcKBprHICV7mI2SAgjxm1iWeogDFEA7Oa2XAzOYrNXfIq1INT1jMH2SPe+ [file] ICAgICAgICAgICAgICAgICAgICAgICAgICAgICAgICAgICAgICAgICAgICAgICAgICAgICAgICAgICAg ICAgICAgICAgICAgICAgICAgICANCiAgICAgICAgICAgICAgICAgICAgICAgICAgICAgICAgICAgICAg ICAgICAgICAgICAgICAgICAgICAgICAgICAgICAgIC AgICAgICAgICAgICAgICAgICAgICAgICAgICAgICANCiAgICAgICAgICAgICAgICAgICAgICAgICAgIC AgICAgICAgICAgICAgICAgICAgICAgICAgICAgICAgICAgICAgICAgICAgICAgICAgICAgICAgICAgIC AgICAgICAgICAgICANCiAgICAgICAgICAgICAgICAg ICAgICAgICAgICAgICAgICAgICAgICAgICAgICAgICAgICAgICAgICAgICAgICAgICAgICAgICAgICAg ICAgICAgICAgICAgICAgICAgICAgICANCiAgICAgICAgICAgICAgICAgICAgICAgICAgICAgICAgICAg ICAgICAgICAgICAgICAgICAgICAgICAgICAgICAgIC AgICAgICAgICAgICAgICAgICAgICAgICAgICAgICAgICANCiAgICAgICAgICAgICAgICAgICAgICAgIC AgICAgICAgICAgICAgICAgICAgICAgICAgICAgICAgICAgICAgICAgICAgICAgICAgICAgICAgICAgIC AgICAgICAgICAgICAgICANCiAgICAgICAgICAgICAg ICAgICAgICAgICAgICAgICAgICAgICAgICAgICAgICAgICAgICAgICAgICAgICAgICAgICAgICAgICAg ICAgICAgICAgICAgICAgICAgICAgICAgICANCiAgICAgICAgICAgICAgICAgICAgICAgICAgICAgICAg ICAgICAgICAgICAgICAgICAgICAgICAgICAgICAgIC AgICAgICAgICAgICAgICAgICAgICAgICAgICAgICAgICAgICANCiAgICAgICAgICAgICAgICAgICAgIC AgICAgICAgICAgICAgICAgICAgICAgICAgICAgICAgICAgICAgICAgICAgICAgICAgICAgICAgICAgIC AgICAgICAgICAgICAgICAgICANCiAgICAgICAgICAg ICAgICAgICAgICAgICAgICAgICAgICAgICAgICAgICAgICAgICAgICAgICAgICAgICAgICAgICAgICAg ICAgICAgICAgICAgICAgICAgICAgICAgICAgICANCjw/zKGsD6jyeADvtkH1T0zsWv2TVb2RPT3re2Op UHCfUNdfgxDbNohWEsNsJSRwNcbHYbn4BGpmRR6UhV FwY0QvM0KxCBprZA2MUQRrIEFfcVIfUTFyFJYnNtX7YJHpWHypCB6SiBJoXTqcALTnLZFgVgDdKSSmAA MpZOGtMXKrSLXCPMCePAItBnDcRQFbPNSvHHukOLJIYGE2TKDhNxXbAWFuNCNqHxKhVNMLCY2ILwHlT4 IdqH53UOCpUBf+Cl0GTH1gm2XfUXb5KfPlYF6oov4Q WFoHTbSnU4TfbpM0SMK6RQGjHu0CNYVlFPEqlLI9UKLgSMURLzLyU8ViyI43JRXEBo3+DQplbmRvYmoN XkL5LGLvo1EdLPg0YU6QIYYjYPg2hFYrWWbxO9giijkaFVM1uD1lpmzfTnzzXV5gvuJmUKNIOA6fkDRl TGHzpMTay8DqWB7TFUG7DGttUnJqYaZiLQLqPlbaGP IKGIoDCaAcQ0Iwu0LkTvZ2DCMmLtJnMFyvLLLtTpK6RY20uIphTG9BWOZnZJNxJH88RNTqEJMrHz2PLd 3KVeDzYW1etb4XGINyGVBwOafZKew1UVsvUL1GmSWbW6LenHTso3vKKiUvG6VWTUGxLFDmUc0JDWJzVc GoDECtLOleQL8iWSWwNTMXcWnjswN3DB4FBD4gbgJs MF3SZiPoPh4oDk4IRfJdI0DpV0NmSAZrRLEHVVwxBD1KVIegAT2zLJ4Dy1FGeJSfqP1aif1QIHXfENSk Tbsyci2TPkotD5S8zXcbOSIqWNLwNNQKCKatFF0GSSYyYYX2WPX0JtHjORDJEgUfB26xVP0ZG9Frr13m AxW5VPAyKsRoTUdbCU25xJlfgdBozQHgxMhkKO6LQu 4+KDbjpkEgQufCUatgBILOCbTzBJQEHfQaOUMfHBAzJPZrPpI6MzDoRd8XMXQcNTEhNRHsXtSlCZSoZN YjNEpvQHAgJQX9RbhqZWBbYFUzYJ1BHpEnJGOeDNp1MuFvVZOiLAAhka1PHKSgZAPgIXU7FyPqWMVtCO RjSKalFRIpKZHeBCWjQPZcTBVjZX4UZsVeOACcSIJ8 RUMtMKWbJDZphs2RMWEbLNEoAtj2GWFhLIYsVOFtZCweFLVkPNW7UOFnWMXkBDVvIT9LOvBsYUVkLLg0 TXUzZANtLFCmzm0WAUPcPCZrBRl8GERwHXPoCITaWImeGFOtNQEtBnYqWAGfXJSdQL1CMjWyWVXvJGV2 RyqtGCGoGZSrqr1WDTQuZRHgOZT0KpCwDEReISVfSA dwNWOhRWN0UDF3RZJpPXWfRT4YWgXlTSNoWkK5YCasZFWoAUYlea8QKEYjMURsWgu6TDHrKIMfCSLrOM gyCXAfLFJ9PCD9UJNrJBJjIJ6OPfJtBWZbMhv4UEMrSCJhOWDswd4UOTPvQJMmGIOyOsUmGRMaSUQvLA fpCCZyOMImQxLsFRLsJJZrKF2FGrReBKQcSaWzOVOk QURuZORtqx9MRZJqYPNeQiH4YDQnTMLbWPLtDLnxHPXjEOP1GKMkFJMxQSIlML9QIgKdTXAcQrT8Rsot ROXtQJQyfr3HEFYnPKUzDhI7WVGpBCGwUMGqSMzyHUUwOWE8Frb7GKBsARRwMV9BOrZhERNpGxt5Uzgj DHXmPMKvjq8YDVBzGFMvRNvsQZIeOXZbJVOvFVsfXT KvGAV7LCZvSFUrKORsNO3WLqJiVWFuRnajUCyiQWJpPKOprn8DUBFlRJL4YWR9SwNbSOEiOOZkPSrdVH PrSJFeLPq7WFTxFXDrGL8MKvKkTABcUXX6NnciFAIrBZNxbc0XQEYhSOA3NBZuEsUmAJRjWBAyIZnwUK AfCCX6ERVjCLCxUBAoAW8FEgYgZNLxDWBiELVdCHZe OWEeiu0WGAOyIOV9GxM8LtZoLKCkUQDzPHvvXYRxOZM6AVN6BFGwPGKgGR8XAdXvTTJtMLerMMYwKLOy MIWxzi2FGJLvHZN6MbM3GBDuWZDtBZYjHYsvXEEqYQP0JeC5NALpZXRbTG3AMtWoZPGbVWliRCFgBWWb DDApza4YPTObBRF2BIE9DzUgYWWhGVYmLGhwBPLpYK F5UwGpJZAyEKGcUP8SMyVlGSGuSVf0VTAiXBEnFNZtgt6JoIDlgUiiqh2NRBrPLa3YvDweIVL0ZTcbIl 1kwBJ5QKIiJSGZJj8MymYcEPWoVFXVGGhdIQCkAVyrDRV7DYEsIGMiJntbGSD0AwRzEXV9JKItWBu8Nw QbPoZ1UBQgQVgwDuMrSLLjQWO0QIvuCjL1RSfrRfZ5 KKr4NQR+ES8mXTa+Nz4Ws3QlsfT8weApKMm3SZZ3EI5FTCMPC2FLQm== ID Date Data Source [id number] 03/18/2020 11:17:00 AM EDT [facility] ([facility]) Name Value Range Interpretation Code Description Data Belkys rce(s) Supporting Document(s) Thyroid Stimulating Hormone 1.640 ME DENT ([facility]) ID Date Data Source [id number] 03/18/2020 11:17:00 AM EDT [facility] ([facility] Name Value Range Interpretation Code Description Data Belkys rce(s) Supporting Document(s) Calcium [Mass/volume] in Serum or Plasma 9.1 [facility] ([facility]) Sodium 136 [facility] ([facility] Potassium [Moles/volume] in Serum or Plasma 4.3 [facility] ([facility]) Chloride [Moles/volume] in Serum or Plasma 100 [facility] ([facility]) Glucose 87 70-140 [facility] ([facility]) Carbon dioxide, total [Moles/volume] in Serum or Plasma Labo ratory test result [facility] ([facility]) Blood Urea Nitrogen 21 8-23 [facility] ([facility]) Creatinine 0.91 0.50-0.90 [facility] ([facility]) Glomerular filtration rate/1.73 sq M.pre dicted [Volume Rate/Area] in Serum or Plasma by Creatinine-based formula (MDRD) Laboratory test result [facility] ([facility]) ID Date Data Source [id number] 03/18/2020 07:22:29 AM T [facility] Name Value Range Interpretation Code Description Data Belkys rce(s) Supporting Document(s) Leukocytes [#/volume] in Blood by Automated count 7.5 10*3/uL 4-10 [facility] Erythrocytes [#/volume] in Blood by Automated count 3.52 10*6/uL 4.1- 5.3 L [facility] Hemoglobin [Mass/volume] in Blood 10.5 g/dL 11.5-15.5 L [facility] Hematocrit [Volume Fraction] of Blood by Automated count 32.4 % 3 6-45 L [facility] Erythrocyte mean corpuscular volume [Entitic volume] by Auto mated count 92.0 fL 80-96 [facility] Erythrocyte mean corpuscular hemoglobin [Entitic mass] by Automated count 30.0 pg 27-33 [facility] Erythrocyte mean corpuscular hemoglobin concentration [Mass/volume] by Automated count 32.6 g/dL 32.0-36.0 [facility] E[facility]th[facility] distribution width [Ratio] by Automated count 14.1 % 11.5-14.5 [facility] Platelets [#/volume] in Blood by Automated count 230 10*3/uL 150-400 [facility] Differential cell count method - Blood [facility] Neutrophils/100 leukocytes in Blood by Automated count 69 % [facility] Lymphocytes/100 leukocytes in Blood by Automated count 17 % [facility] Monocytes/100 leukocytes in Blood by Automated count 11 % [facility] Eosinophils/100 leukocytes in Blood by Automated count 2 % [facility] Basophils/100 leukocytes in Blood by Automated count 1 % [facility] Neutrophils [#/volume] in Blood by Automated count 5.21 10*3/uL 1.8-7 .0 [facility] Lymphocytes [#/volume] in Blood by Automated count 1.27 10*3/uL 1.2-4 .0 [facility] Monocytes [#/volume] in Blood by Automated count 0.79 10*3/uL 0-0.8 [facility] Eosinophils [#/volume] in Blood by Automated count 0.15 10*3/uL 0-0.5 [facility] Basophils [#/volume] in Blood by Automated count 0.05 10*3/uL 0-0.2 [facility] Nucleated erythrocytes/100 leukocytes [Ratio] in Blood by Automated count 0 /100{WBCs} 0-0 [facility] ID Date Data Source [id number] 03/18/2020 07:37:04 AM EDT [facility] Name Value Range Interpretation Code Description Data Belkys rce(s) Supporting Document(s) Bicarbonate [Moles/volume] in Serum 28 mmol/L 22-29 [facility] Chloride [Moles/volume] in Serum or Plasma 100 mmol/L 98-107 [facility] Creatinine [Mass/volume] in Serum or Plasma 0.91 mg/dL 0.50-0.90 H [facility] Glucose [Mass/volume] in Serum or Plasma 87 mg/dL 70-140 [facility] Potassium [Moles/volume] in Serum or Plasma 4.3 mmol/L 3.4-5.1 [facility] Sodium [Moles/volume] in Serum or Plasma 136 mmol/L 136-145 [facility] Urea nitrogen [Mass/volume] in Serum or Plasma 21 mg/dL 8-23 [facility] Anion gap 3 in Serum or Plasma 8 mmol/L 8-15 [facility] Osmolality of Serum or Plasma by calculation 284 mosm/kg 275-300 [facility] Creatinine/Urea nitrogen [Mass Ratio] in Serum or Plasma 23 [facility] Calcium [Mass/volume] in Serum or Plasma 9.1 mg/dL 8.8-10.2 [facility] Glomerular filtration rate/1.73 sq M pre dicted among non-blacks [Volume Rate/Area] in Serum or Plasma by Creatinine-based formula (MDRD) >6 0 [facility] Glomerular filtration rate/1.73 sq M pre dicted among blacks [Volume Rate/Area] in Serum or Plasma by Creatinine-based formula (MDRD) >60 [facility] ID Date Data Source [id number] 03/18/2020 07:37:04 AM [facility] Name Value Range Interpretation Code Description Data Belkys rce(s) Supporting Document(s) Thyrotropin [Units/volume] in Serum or Plasma 1.640 u[IU]/mL 0.270-4. 200 [facility] ID Date Data Source [id number] 03/16/2020 06:52:26 PM [facility] Name Value Range Interpretation Code Description Data Belkys rce(s) Supporting Document(s) Color of Urine [facility] Clarity of Urine [facility] Specific gravity of Urine by Refractometry automated 1.015 1.003 -1.030 [facility] pH of Urine by Automated test strip 6.0 5.0-8.0 [facility] Protein [Mass/volume] in Urine by Automated test strip Neg [facility] Glucose [Mass/volume] in Urine by Automated test strip Neg [facility] Ketones [Mass/volume] in Urine by Automated test strip Neg [facility] Bilirubin.total [Presence] in Urine by Automated test strip Negative [facility] Hemoglobin [Presence] in Urine by Automated test strip Neg [facility] Leukocyte esterase [Presence] in Urine by Automated test strip Negative [facility] Nitrite [Presence] in Urine by Automated test strip Negati [facility] Leukocytes [#/area] in Urine sediment by Automated count 0 -5 [facility] Erythrocytes [#/area] in Urine sediment by Automated count 0-3 [facility] Service comment [facility] ID Date Data Source [id number] 03/16/2020 02:43:58 PM T [facility] US DOPPLER LOWER EXTREMITY UNILATERAL VE NOUS LIMITED [id number] RESULTInterpreted by:MARINA Stricklandrocedure: Left lower extremity real-time compression venous ultrasound with color Doppler and spectral waveform imaging.History: Swelling.Technique: Utilizing real-time ultrasonic imaging multiple real time high-resolution ultrasonic images of the deep venous system were performed with compression and noncompression maneuver from the common femoral vein through the proximal calf veins. Findings: Currently there is normal compressibility of the deep venous system from the common femoral vein through the proximal calf veins. No current evidence of acute thrombosis. Normal vascular flow is currently identified.Impression: Currently unremarkable left lower extremity venous ultrasound.This document has been electronically signed by Kasandra Tenorio MD on 03/16/2020 2:41 PM Name Value Range Interpretation Code Description Data Belkys rce(s) Supporting Document(s) ID Date Data Source [id number] 03/16/2020 11:59:10 AM [facility] Name Value Range Interpretation Code Description Data Belkys rce(s) Supporting Document(s) Leukocytes [#/volume] in Blood by Automated count 7.9 10*3/uL 4-10 [facility] Erythrocytes [#/volume] in Blood by Automated count 3.73 10*6/uL 4.1- 5.3 L [facility] Hemoglobin [Mass/volume] in Blood 11.2 g/dL 11.5-15.5 [facility] Hematocrit [Volume Fraction] of Blood by Automated count 34.5 % 3 6-45 L [facility] Erythrocyte mean corpuscular volume [Entitic volume] by Auto mated count 92.5 fL 80-96 [facility] Erythrocyte mean corpuscular hemoglobin [Entitic mass] by Automated count 29.9 pg 27-33 [facility] Erythrocyte mean corpuscular hemoglobin concentration [Mass/volume] by Automated count 32.4 g/dL 32.0-36.0 [facility] Erythrocyte distribution width [Ratio] by Automated count 14.5 % 11.5-14.5 [facility] Platelets [#/volume] in Blood by Automated count 268 10*3/uL 150-400 [facility] Differential cell count method - Blood [facility] Neutrophils/100 leukocytes in Blood by Automated count 70 % [facility] Lymphocytes/100 leukocytes in Blood by Automated count 17 % [facility] Monocytes/100 leukocytes in Blood by Automated count 10 % [facility] Eosinophils/100 leukocytes in Blood by Automated count 2 % [facility] Basophils/100 leukocytes in Blood by Automated count 1 % [facility] Neutrophils [#/volume] in Blood by Automated count 5.53 10*3/uL 1.8-7 .0 [facility] Lymphocytes [#/volume] in Blood by Automated count 1.35 10*3/uL 1.2-4 .0 [facility] Monocytes [#/volume] in Blood by Automated count 0.79 10*3/uL 0-0.8 [facility] Eosinophils [#/volume] in Blood by Automated count 0.14 10*3/uL 0-0.5 [facility] Basophils [#/volume] in Blood by Automated count 0.07 10*3/uL 0-0.2 [facility] Nucleated erythrocytes/100 leukocytes [Ratio] in Blood by Automated count 0 /100{WBCs} 0-0 [facility] ID Date Data Source [id number] 03/15/2020 06:56:47 AM EDT [facility] Name Value Range Interpretation Code Description Data Belkys rce(s) Supporting Document(s) Bicarbonate [Moles/volume] in Serum 29 mmol/L 22-29 [facility] Chloride [Moles/volume] in Serum or Plasma 99 mmol/L 98-107 [facility] Creatinine [Mass/volume] in Serum or Plasma 0.93 mg/dL 0.50-0.90 H [facility] Glucose [Mass/volume] in Serum or Plasma 96 mg/dL 70-140 [facility] Potassium [Moles/volume] in Serum or Plasma 4.6 mmol/L 3.4-5.1 [facility] Sodium [Moles/volume] in Serum or Plasma 135 mmol/L 136-145 L [facility] Urea nitrogen [Mass/volume] in Serum or Plasma 17 mg/dL 8-23 [facility] Anion gap 3 in Serum or Plasma 7 mmol/L 8-15 L [facility] Osmolality of Serum or Plasma by calculation 281 mosm/kg 275-300 [facility] Creatinine/Urea nitrogen [Mass Ratio] in Serum or Plasma 18 [facility] Calcium [Mass/volume] in Serum or Plasma 9.0 mg/dL 8.8-10.2 [facility] Glomerular filtration rate/1.73 sq M pre dicted among non-blacks [Volume Rate/Area] in Serum or Plasma by Creatinine-based formula (MDRD) >6 0 [facility] Glomerular filtration rate/1.73 sq M pre dicted among blacks [Volume Rate/Area] in Serum or Plasma by Creatinine-based formula (MDRD) >60 [facility] ID Date Data Source [id number] 03/10/2020 01:47:29 PM EDT [facility] Name Value Range Interpretation Code Description Data Belkys rce(s) Supporting Document(s) Consultation [facility] [id number]5HGeEQdAoLhWwXLR4 lbm [file] [id number]= ID Date Data Source [id number] 03/09/2020 04:12:13 PM EDT [facility] Name Value Range Interpretation Code Description Data Belkys rce(s) Supporting Document(s) Consultation [facility] [id number] lbm [file] [id number]/G/dAHuhoFQcARA/tebZ+Ana Rosa/av8bXBl [file] [id number] ID Date Data Source [id number] 03/09/2020 11:10:00 AM [facility] Name Value Range Interpretation Code Description Data Belkys rce(s) Supporting Document(s) Calcidiol [Mass/volume] in Serum or Plasma 28 ng/mL >30 L [facility] ID Date Data Source [id number] 03/09/2020 06:45:12 AM [facility] Name Value Range Interpretation Code Description Data Belkys rce(s) Supporting Document(s) Leukocytes [#/volume] in Blood by Automated count 8.5 10*3/uL 4-10 [facility] Erythrocytes [#/volume] in Blood by Automated count 4.40 10*6/uL 4.1- 5.3 [facility] Hemoglobin [Mass/volume] in Blood 13.3 g/dL 11.5-15.5 [facility] Hematocrit [Volume Fraction] of Blood by Automated count 40.8 % 3 6-45 [facility] Erythrocyte mean corpuscular volume [Entitic volume] by Auto mated count 92.7 fL 80-96 [facility] Erythrocyte mean corpuscular hemoglobin [Entitic mass] by Automated count 30.3 pg 27-33 [facility] Erythrocyte mean corpuscular hemoglobin concentration [Mass/volume] by Automated count 32.6 g/dL 32.0-36.0 [facility] Erythrocyte distribution width [Ratio] by Automated count 14.5 % 11.5-14.5 [facility] Platelets [#/volume] in Blood by Automated count 180 10*3/uL 150-400 [facility] Differential cell count method - Blood [facility] Neutrophils/100 leukocytes in Blood by Automated count 70 % [facility] Lymphocytes/100 leukocytes in Blood by Automated count 17 % [facility] Monocytes/100 leukocytes in Blood by Automated count 11 % [facility] Eosinophils/100 leukocytes in Blood by Automated count 1 % [facility] Basophils/100 leukocytes in Blood by Automated count 1 % [facility] Neutrophils [#/volume] in Blood by Automated count 5.94 10*3/uL 1.8-7 .0 [facility] Lymphocytes [#/volume] in Blood by Automated count 1.40 10*3/uL 1.2-4 .0 [facility] Monocytes [#/volume] in Blood by Automated count 0.96 10*3/uL 0-0.8 H [facility] Eosinophils [#/volume] in Blood by Automated count 0.11 10*3/uL 0-0.5 [facility] Basophils [#/volume] in Blood by Automated count 0.05 10*3/uL 0-0.2 [facility] Nucleated erythrocytes/100 leukocytes [Ratio] in Blood by Automated count 0 /100{WBCs} 0-0 [facility] ID Date Data Source [id number] 03/09/2020 07:02:43 AM EDT [facility] Name Value Range Interpretation Code Description Data Belkys rce(s) Supporting Document(s) Albumin [Mass/volume] in Serum or Plasma by Bromocresol green (BCG) dye binding method 3.3 g/dL 3.5-5.2 L [facility] Bilirubin.total [Mass/volume] in Serum or Plasma 0.6 mg/dL <1.2 [facility] Calcium [Mass/volume] in Serum or Plasma 9.4 mg/dL 8.8-10.2 [facility] Chloride [Moles/volume] in Serum or Plasma 96 mmol/L 98-107 L [facility] Creatinine [Mass/volume] in Serum or Plasma 0.73 mg/dL 0.50-0.90 [facility] Glucose [Mass/volume] in Serum or Plasma 104 mg/dL 70-140 [facility] Alkaline phosphatase [Enzymatic activity/volume] in Serum or Plasma 90 U/L 35-104 [facility] Potassium [Moles/volume] in Serum or Plasma 4.0 mmol/L 3.4-5.1 [facility] Protein [Mass/volume] in Serum or Plasma 6.8 g/dL 6.4-8.3 [facility] Sodium [Moles/volume] in Serum or Plasma 135 mmol/L 136-145 L [facility] Aspartate aminotransferase [Enzymatic activity/volume] in Serum or Plasma 26 U/L <32 [facility] Urea nitrogen [Mass/volume] in Serum or Plasma 12 mg/dL 8-23 [facility] Osmolality of Serum or Plasma by calculation 280 mosm/kg 275-300 [facility] Creatinine/Urea nitrogen [Mass Ratio] in Serum or Plasma 17 [facility] Bicarbonate [Moles/volume] in Serum 34 mmol/L 22-29 H [facility] Alanine aminotransferase [Enzymatic activity/volume] in Seru m or Plasma 19 U/L <33 [facility] Anion gap 3 in Serum or Plasma 5 mmol/L 8-15 L [facility] Glomerular filtration rate/1.73 sq M pre dicted among non-blacks [Volume Rate/Area] in Serum or Plasma by Creatinine-based formula (MDRD) >6 0 [facility] Glomerular filtration rate/1.73 sq M pre dicted among blacks [Volume Rate/Area] in Serum or Plasma by Creatinine-based formula (MDRD) >60 [facility] ID Date Data Source [id number] 03/08/2020 08:49:37 PM EDT [facility] Name Value Range Interpretation Code Description Data Belkys rce(s) Supporting Document(s) Discharge Summary [facility] [id number]/[id number]H7WAyBFdHmLwYlTTP4 [facility] [file] AyMTMzNSAwMDAwMCBuDQowMDAwMDIxNTQxIDAwMDAw CU1MCmElKAHpNyG4YTNuNWZbKUXegr0ZJNYiQUTwWlW4PNFwMBVzXIUfUMmkXJKgZJYfZQsfALRhTAKz AK3SMpWtDJSpEbO4VYGjBFViPLIbqv0EIRUeQPCcCFI7RjPhLHHeNNFwEGqiVRYcAIL9SaIiVCDaMLIv EF2OWbBaTEArHvLdECYuXSTrRXZliu7OPAHxXQMuFB Y5NcCcEIDeEMYpSLmmICKlIBP0YOgkRAMbDWGpFH2PSbTgADOtSzG2ARCmXWQnSSTvtv1QLNKgFTQnRo R2QZSaZBEiPISlTGyiQTDvBWT2PVA3ILFyWMXdVN0MTtTwEBJvUfh4ZhRyOZPxWASjpj7LyQHshUrqfq 7DSPeMCk0ExPunWZRwVHrlEi5akIJbFFKmSHFIUx4T nwHiEZYmLYVNABbjBAGcCMChVtA9IzJ9ADFoQpAaGAS9CCQkYtA3WYjoSXIjFBNdWzS8Y4UeNWCgHnO7 RNUnPxU2RSAuDAYqVMq7MdLiKHT1QRW+MF7aWKi+Yo6Vx0XkrdC7wlHsLIxmGPMrVQ9NXHFPI0KCZi== ID Date Data Source [id number] 03/08/2020 05:00:04 PM EDT [facility] Name Value Range Interpretation Code Description Data Belkys rce(s) Supporting Document(s) History and Physical [facility] EOITTe2vLwGZVwYa41/ULXjaVIYdc2UvZDlbCTk5OFgdYCUrN2WyIID3gS4gAQJ9JRyATjKdJzWgYGV4 lbm [file] AgICAgICAgICAgICAgICAgICAgICAgICAgICAgICAg JRKcJGPkASMqYDFrDNFmBTNhXRKgFPYkEXMnPRVsDQSqFTDcCHAcVR2MGYYkBSJpWEUoHRMiSRFeOWCd ICAgICAgICAgICAgICAgICAgICAgICAgICAgICAgICAgICAgICAgICAgICAgICAgICAgICAgICAgICAg ASHhWZMnPJVtLZSrIJVwTJQhZAFuTA9CBDChPSUpWT AgICAgICAgICAgICAgICAgICAgICAgICAgICAgICAgICAgICAgICAgICAgICAgICAgICAgICAgICAgIC DqFYEaNEYkNOTaSDFeKUMiJQOdKRTcTQXnXEIfXRCcCD8ZDVYwRQGoRZZnRRFnIMOsWNClDFGiOJMzHS AgICAgICAgICAgICAgICAgICAgICAgICAgICAgICAg BGLnCDHyYJJjDIWhYPQgHEQfPBYqUAZpQBGcANAnMXGeNTFuNSYmPDWyJZ7WBFWrOFDrLBKhVPJvNCLh ICAgICAgICAgICAgICAgICAgICAgICAgICAgICAgICAgICAgICAgICAgICAgICAgICAgICAgICAgICAg DXUnZMYrSJVaFCMhQGLuUKMbMNErIICgLX7XRPBaIX AgICAgICAgICAgICAgICAgICAgICAgICAgICAgICAgICAgICAgICAgICAgICAgICAgICAgICAgICAgIC AuIIYuGTYoJALmYXNiBCSlQSRfMDQsDQSiRTVzLRRlVUBgKI9UCSUgPTVkUDJeZEDiCXZxXLWtDGMwKJ AgICAgICAgICAgICAgICAgICAgICAgICAgICAgICAg ZYPmRJMuGYPcZLWbZUUjEQQmDQAvICRxSZCbLHFfLYAeVJGyQZWzJODzKKEgLT9NUZXoAURqHZVcZRVj ICAgICAgICAgICAgICAgICAgICAgICAgICAgICAgICAgICAgICAgICAgICAgICAgICAgICAgICAgICAg IIAqUYDxAVPkJDFwCVRdFDLbVUZgJWUnTUGyBA8DLV AgICAgICAgICAgICAgICAgICAgICAgICAgICAgICAgICAgICAgICAgICAgICAgICAgICAgICAgICAgIC XmCSPiNNMyQSJvTGIqHKSmGTIrKJFpEFVqKKMwNXHvWEPjVDTsGX8IQDSlQDIqTHFgIUEyJBZyMJMpHK AgICAgICAgICAgICAgICAgICAgICAgICAgICAgICAg YTRxNZLqZSOrVFGaFTQvVYNvQKCfVPUcTENuOXBbIXHyRUKbCERyIJEeTRRiEDInWH1QJI29xVBky7K5 OQBpCO6dpjv/Rp8IWUvaxbHkfJOlDQ0DIiYhNJ5suy5JUkHbKB2qft2LLVgBLvYfC4B6iSTdTQPqMAKC YxZcX12nCPizFx69SYeyTCWgGlEeXCr2Od0MUdAyE1 sjBUKyUzE1RPSuRoL2SJVkHcI9EEQkViWyHDOzFZVsAWGjRRZCVRJ9CIOtRzQlAaAiUQLtYZviFYQCKS NeRODdHrAnUoUcQHJhJzKuXPANYGU6OFTuAvLpPFPoIXEuZZ9RJUBvV273tkMiSPBZDy6+DQplbmRvYm fOYmX4WKWvh6CaHAo4DV8BHYKhMwcyn9ZhGLdsJCWM PCtjKA5GUAL1YQQ9IQQzPn9MQSDqS448hcDpPQ6GFd5ZFjEqFM1wdk2NGFmrNLWlJddBRge3AFpyOL1S iOZaTTjHCkWwQvaxEK5pbmLjBPBJMK9anBAjRCAvbOWsi7EmTX3THST5DCycVQfmVpPhFBLeCvkqIAMB URrSIvDaI5Xib8AkNhG0ZFByKjOaZFwlXNYwBcF4NB 61pEerBL4UGTYqKSCjWT09EEJ6BLLdNx8DYe6RXlDzKN2lgu3DGBBlWXRbZdtSVbs7LPenTT0KnCDoM8 IawBAde8yDTmYvW8HSOMH6WFKwGq5IMSNzKrJsAYXrXGcrIX9jWCEoWMKRlLhcxtS5IT2EBP3uwlVjII 8HAfAaLa3wSw1WEwDtO2GqG7KiOQQvGYSJKTfaSD8K YAhmPL0oWU2Vd5JMbUOflX7jhh8ZGEEaMKJoSoftna6MOmgvL8U0iSxdEUVdRFjxYZGMNUjcKI0NALLi VEA7SVY7UiCvKQCSBaPpR01vBA2PD9Hda88bNgE6MEKfJqMwSTuvXC83ePqpztBsfBKqxQifPW7TWa6+ DQplbmRvYmoNCnhyZWYNCjAgNTENCjAwMDAwMDAwMD WjKyT7AvItLw5DOOPrVCGpDHViGbEfOSRpIMDqKKdyZAXiDLL2DvO6OVOnPRRmXI7UCsMlUATvEve6XF PdXZXzFGYscb7CYAAgOPRxRHX1XrEkFCCmQYNhPEpaHUGpKHW6EzChPZKnHEUaGD0GYzPxIHUjYNM8SA pqXEUfAZBnvw1PXQSsACTbThxhRmZuYRHeKADpVAbe CWKmCXS3QEZpPLVcWWMaHW3XHpNvEKMwOYAgRrtyBFGeGNCtpy9CNFWxQBDiXNRiKfSiPACtGDJmNKax XDJoSSS4TfH4INVnPWSbAZ1EVyZvHNWiOWO2OfYtFGWuPMGfgw8PQEEhXJEdQYFaGvGeVGVfCPEcPPru RUXkKXT5AaZ6MTAiIKMoBX8IVxHiRQCpCyB9OSEzEA HbKMFhgo1ZAOLuUDZnIps6ZRVpYLAsCJCxUWnbRDZxXUN0TMJ0EKCcUZJiJX8COiWlMIYtDeZ6QaAaSN XcSXRueh6MBVInFOIyIDV5IWUqTSAmZCLwIDneINLuIMX5KMwyUYRoFXTvGE8SOcAeMTZwYnToHeAaPO GsVUWqkl9ANONhTTPgJaQsCwHbEVAtHZIqAIagSHFq HWZ3JMn9JWSvAMWnIF6ZCgZeGRPgLfX7DMQbXEYnEPYwml3VGXLcJAU4EUk2JoKwPEPjFLVzRMfcGBVj BOSiQPW2YYFiWFFiUC7SYoLvCFYpOWRtZEUnSAQyDMAaxw9HCTGhADI3FVF5PKAsGRNgRLBaKUftTLNc JTG9YtC7OKVsJOXkWS4MQpAfVHSrWFA3BaIuSJXwSO Adco7RUTYsKPS3ZyrwOJGlZXTgFXSyBTvcOJLmSVE2RDVgJIDmIIHlKC5RRfEhSRYeYAaiKHJzWPVvCR Xefk9DWZGmVSP5OBS5XGGbSSNeIZPhAPdsDYBtGJM3WKU9BGJwWWZtVJ6CSyQeXWLhSSc4XOKyUSOhMM Nyyi9BAXFyVIF0XZBbJVAvEELmHSBlWCfrCCEpIGIk QfH2ZQPsSPQoCN0YYtAzENMdGjU2KvMlOHEjRCKryp3OJROpFAA9JKkzOCOeJSIwQQAbRGixLYFhWHMb UYGnWLIuVJIzWU0KTkBcMYWnRfY9XCuyRCCoSOCgfi2CSMFySCJ6FcZlJTDjNVCjHRPyROpoPAZxZSD7 GcT7MOFwDITnXD3VEhDzYMJkRfe9RpCaMRLdTUHtnl 1AYPJbRSI7BgseXtRkOILvPJRqHHeqXKRoMFA5KKHeSGLoWNXfOV4MYjUgOVMsUlr6IqTfDXVvUHJved 1ZRIXjVPP0MYbaTfJqASGqNBObJNxnCFGjIEK8SWj4DJNzUNUbFA0YHqWyWKniRWHCAwq5JQcmA2w6PO S7LE3SC5Xhi1YsWENvWNSBLLayXH6hbcMnDJYeIj5E L8qPLzmtKkGhIgS7NzBjKfNfKHMpF6K6VsQ1LsO2H2Y2JbVqGf8vIVHxYWFvZrfpWrZmMBVnUQB1Jnn8 KsagBypbFiI2UvJ5XuVqZM0WUb8HExH1BVJ0lKRqYn0GBrGrJmPUHsOkMV6JVBn= ID Date Data Source [id number] 03/08/2020 12:33:30 PM EDT [facility] Name Value Range Interpretation Code Description Data Belkys rce(s) Supporting Document(s) Consultation [facility] ONXUTp9sQwVJLhMi66/PNIlkCAAoc8VrKVxlDIt6TZllRHZdP2HwKAP1nH4eNUE7CAlBTsNkLiFaUIS9 lbm [file] luz elena+as5xR5gp559SoMbP//P6U9phENOfFwCIR9maHacW4IKV8cy2UtUIybRGEgGJ9gcf2LPCD7RO3BZI [file] AgICAgICAgICAgICAgICAgICAgICAgICAgICAgICAg ICAgICAgICAgICAgICAgICAgICAgICAgICAgICAgICAgICANCiAgICAgICAgICAgICAgICAgICAgICAg ICAgICAgICAgICAgICAgICAgICAgICAgICAgICAgICAgICAgICAgICAgICAgICAgICAgICAgICAgICAg ICAgICAgICAgICAgICAgICANCiAgICAgICAgICAgIC AgICAgICAgICAgICAgICAgICAgICAgICAgICAgICAgICAgICAgICAgICAgICAgICAgICAgICAgICAgIC AgICAgICAgICAgICAgICAgICAgICAgICAgICANCiAgICAgICAgICAgICAgICAgICAgICAgICAgICAgIC AgICAgICAgICAgICAgICAgICAgICAgICAgICAgICAg ICAgICAgICAgICAgICAgICAgICAgICAgICAgICAgICAgICAgICANCiAgICAgICAgICAgICAgICAgICAg ICAgICAgICAgICAgICAgICAgICAgICAgICAgICAgICAgICAgICAgICAgICAgICAgICAgICAgICAgICAg ICAgICAgICAgICAgICAgICAgICANCiAgICAgICAgIC AgICAgICAgICAgICAgICAgICAgICAgICAgICAgICAgICAgICAgICAgICAgICAgICAgICAgICAgICAgIC AgICAgICAgICAgICAgICAgICAgICAgICAgICAgICANCiAgICAgICAgICAgICAgICAgICAgICAgICAgIC AgICAgICAgICAgICAgICAgICAgICAgICAgICAgICAg ICAgICAgICAgICAgICAgICAgICAgICAgICAgICAgICAgICAgICAgICANCiAgICAgICAgICAgICAgICAg ICAgICAgICAgICAgICAgICAgICAgICAgICAgICAgICAgICAgICAgICAgICAgICAgICAgICAgICAgICAg ICAgICAgICAgICAgICAgICAgICAgICANCiAgICAgIC AgICAgICAgICAgICAgICAgICAgICAgICAgICAgICAgICAgICAgICAgICAgICAgICAgICAgICAgICAgIC AgICAgICAgICAgICAgICAgICAgICAgICAgICAgICAgICANCiAgICAgICAgICAgICAgICAgICAgICAgIC AgICAgICAgICAgICAgICAgICAgICAgICAgICAgICAg ICAgICAgICAgICAgICAgICAgICAgICAgICAgICAgICAgICAgICAgICAgICANCjw/mCGfZ6gpwQOojoM0 B8aiOl7IAe4BVH8rm8JtHHKmUMlqscTeOzpJCbFcLIGoPpaPRxo3TPgeYS7BnSLnE7SgA1RlIEsaIP7C TLByUHZgqITqDBCaHKKuFqV3WBBkRLurWH5DzJWyMN gyNPMvYKOeNsKmPLNaIMSgEOIkUSEeYDTABXIvSOPmGgQaBUKjOOFgMLchQUNRXBD3LEXgRsBcSLCgJT HcDrHdOFUUMFQ8EADqWnCwPbSzNPQpKndhCPKEAS3YVdMvE1PirA78HDEdTUf+Ue0CYR7zm3SfMRc6SD ZhCR1pxe0LRUtUThArN3XtyjO8CCS5DESgNh2VXEZr SSKaaSD9AUTmSYYXTmRcQ4XzxF95TIHIYa8+ONsbohHrSqjVSyQ7AFMvz6XkTCs5WZ0WDEQfRUm6wQAh M79mq5WbiISiGzfmKP5sqOrvSeOOkrVePBRgZFPWDPM3REjrPUjwHsLzMQMiKXkrZWZKDHjTIhQjS2Bm w2OjBcE1GZMaSoNvFFmcQXIgRuV2WI53bGbwMU6WRR LeHNBdYJ64FNG3VSKsMl3RNh7MNfMdBR2zvc1RSAIfFJQtRqsQPli9IBxqKS0IhNIlX3NasRAgy3nZOx LcG4VWWWRtPWWqLy6EYYBnAuWyABJwPPyzJM8kVLQuOPMDjAequqV5CD1PLL0kvwFwIF8OWxRkRh8tEh 2JBzZzL2YgF5YkQCIkWYFDLXmrGS9FAAyqGR1iSM5O e4VJhJYraY2mdc0ZLOEyTHNaPvptzj6OJapmH0D7kXxlJUDzNSGdZOLVQXhfPP8FGHQdAZV1BDC6CsHq MVBBJwElQ21oKF6JN4Jaz67fSaC2GRSnYbJaXTwxUN62lYeneuChcKVivKqcAT7XWj6+DQplbmRvYmoN WwyzGJEUCyZkXTzTNvMrTNPxKTZqNXBtRwK7OjHxCh 7ASHUeLWIjZIGkMwAeFGBwPTKtGRqjHVUxKUf4UXptBVWuASLxTZ6PIjErHPYpGsg6ENdmUKLePSPbsg 3BUJUoJXHzOHB3JmAcKWKwNJGbORkmCYNxQHL8NAj3UTGgQYKfWY2ALuFpFBDkNCKkLDwsHRCbUQSoel 6FVTSqSDVmBDN8HKEnARXxSKJuZKcgZNWdKJN6XGug WMWjGGLwEE6LIeNiCKEsYRV6RRHrDERtQCUoet8FYCCnWRKeHeP2YBGyGCXdWEJbZSidTZUrQQN7PTK8 MLVhAUJxGO4LOoGjRZXkHYveZjGjMVMbIEMwos2IGGMhASBfFJM2OHNrWNNuLQVtNGvtCPGzPHGoVhQ2 MMRjBMKvFU8FIdZyIJPvGsX2DlOpRQLgQRUzws2IQY QfYITlXWC2PqXiTDHdBPNbWQqpCYReUTP9Pad2MKQkZINtVT4WTtElVSIfAxn5WEScDCZmXTJuuo1IKO MoAZJpLmY4OUIrRWGbFFKqVZonTMFxFDRkSSoeQZGcFUTmMG6TLqDrNACzNnR7ODtbQYPcACOker4KAC AtFTEdFdOxZqOlCKNeATSzSUghHAUmYUYrWQO9SGFe STVgHV2QOgJrAWUmWVFgTaHyOHGyOGUumr0BIGQjVDI9Ixm6IdFyZMJkZZWnQRckTYFmJFS6DOhhPCBb EPFpCC0YBqClTQYeOHBxZurnOTNuZDWsir1NMSQuZJV9HRAnPJJqAPJqIRZaRLcgVXUnVVPjFMM8RTHm ELYbBU2HMxJcNPJeYTQ5LoExONGrZOXhrk4VXCIgNC E3BzrkUpDqURJrIWKtXTmwIZBnGEFtWOU6HKDnXHLaVG2PPfXdTEYmBEEdFUZqGFMxXYWlcw2XUIIiYK N5IOO5IXVlIBYlICQvPDobXZWvCEM7GpZqVJKmBUFhYI8XVvLzWMJqBMB3DPYqNFHiFYTgtj9AFLKqGS E3ZpIrMZDtRTTeHADhTFwrLMDkVPD6MmD4OGRdRBCj SS2JVyQcEQOuHWI4UZGxETFyCLEcbp4UPSYpOII9BON4MgRvUYFaGTDuYWinIUCjSVWkNNZ0IQJxHFLh TF5JOkXbMEEtJiJzFmMyEMTwNCEhal1BUPEdWUI6HoAcXjDiDWHlLIEuAEacJQMbNFMeMAQiKVXmXJPu NJ8QLuAxOCNdYnA2FZyuHGQjFUZtsb3QQZYaUOQ2ZG D1OvGwPQBcRGAsCGqrXGDqPCe0YBo1HFWgPKGmRK8SZdQhBCNvZuH6CQUxEIEzCPQefk0KWLZiNXQ7WG k1MMBbTVYzBRWsNLcoKBMvPUa8IHP5GHWiALDeQW4ZBiTfWLEaIfU6SYHpIQSbJVIjjv5WHOOvBAK1Tv B4WBQlQAZbYBEoCIfkWKZhUWy8GbY9TENxCZMvJH1T LjNzQQCoAphtGGMgRVZtSLRijs8ITRBrTVA1OPBmYLXfAECyRLEiXXwkQNAbQKb1OgH8JDXeWEUsZI6R KiFdQCwwDILARep3GGpeR8c0NQA4Ov9MR0Igl2SdUGKmRJXGHAkwPU1qwlXcUFNjDr4QK8wBFqkyQAQt SXWmACEbMFpvLKC7IaJ5LCpaGRQnXzS4XlAmVs3jML YlIrHbLGZkBBL1QYLcGTYuMPLoC7Z4PMGgStTfMwEsMaTgFU0ITe8BXsK4DEH3rNBmHa4LVjr2THrWVv IiBN2LSJc= ID Date Data Source [id number] 03/08/2020 05:19:10 AM EDT [facility] Name Value Range Interpretation Code Description Data Belkys rce(s) Supporting Document(s) Leukocytes [#/volume] in Blood by Automated count 7.1 10*3/uL 4-10 [facility] Erythrocytes [#/volume] in Blood by Automated count 4.17 10*6/uL 4.1- 5.3 [facility] Hemoglobin [Mass/volume] in Blood 12.6 g/dL 11.5-15.5 [facility] Hematocrit [Volume Fraction] of Blood by Automated count 38.6 % 3 6-45 [facility] Erythrocyte mean corpuscular volume [Entitic volume] by Auto mated count 92.5 fL 80-96 [facility] Erythrocyte mean corpuscular hemoglobin [Entitic mass] by Automated count 30.3 pg 27-33 [facility] Erythrocyte mean corpuscular hemoglobin concentration [Mass/volume] by Automated count 32.7 g/dL 32.0-36.0 [facility] distribution width [Ratio] by Automated count 14.8 % 11.5-14.5 H [facility] Platelets [#/volume] in Blood by Automated count 162 10*3/uL 150-400 [facility] Differential cell count method - Blood [facility] Neutrophils/100 leukocytes in Blood by Automated count 66 % [facility] Lymphocytes/100 leukocytes in Blood by Automated count 18 % [facility] Monocytes/100 leukocytes in Blood by Automated count 14 % [facility] Eosinophils/100 leukocytes in Blood by Automated count 2 % [facility] Basophils/100 leukocytes in Blood by Automated count 0 % [facility] Neutrophils [#/volume] in Blood by Automated count 4.72 10*3/uL 1.8-7 .0 [facility] Lymphocytes [#/volume] in Blood by Automated count 1.25 10*3/uL 1.2-4 .0 [facility] Monocytes [#/volume] in Blood by Automated count 1.00 10*3/uL 0-0.8 H [facility] Eosinophils [#/volume] in Blood by Automated count 0.13 10*3/uL 0-0.5 [facility] Basophils [#/volume] in Blood by Automated count 0.03 10*3/uL 0-0.2 [facility] Nucleated erythrocytes/100 leukocytes [Ratio] in Blood by Automated count 0 /100{WBCs} 0-0 [facility] ID Date Data Source [id number] 03/07/2020 09:31:28 PM EDT [facility] Name Value Range Interpretation Code Description Data Belkys rce(s) Supporting Document(s) [facility] GMBFNt4iNbVQAwWbk3EvHbQlAVQpHC1uydm5H7L5nXAxO6RibWBci4tsL4WiN5DySRQkOVBZSZ3HcGGs jb2 [file] Vc86Nu5Iyu95ERdBcR7/XnV96x/22Tny78O9Wsf57L ufLP/ou2uH+Xgt26Hu4uf402ig+op5to2L6a4j0Bfk+1tCexV0698io/uCo/86+q/t1EifXi81Sm4+4n b7iw+IB9L5tr5voaYM+UT50Ve/q7B5s7ZyxR2Fj/ETP/pm3/Een53Ohio1YTc/zb9cnkbhjO0jnc61ph +/HaY4fxaOvAgJiJ17+x5V132H+kFso0N5nC9wcnMT F3zl3jZaLz1n+/u4ZTpTlYS26908dvJsaZW+Q5U9HThQdnLtRG9+OxGfJ+TobGirCSr1qeow+0jk84ep 9Vw/B3V7i6jfP9mJsn085Q+J8blowrl4tphIGH6NplMIOC+Oa5eb6hX4K+PE2As61LxEzd5a/XcLygXl HD529j/G+673ogbi8i4Nlign9gYfx+793B1klEdZ+N R5jQxEf2NjgryJ1qN4egoHp1Fr/Gj9ly6axzcuQ/a8GgRqq/y7f/stfSboV0vuxp11lszgk863FEaF3d 2yiXs6frE4fd49kesFkJ5284Ho+by6OiUI8aoEa5RzL4609h45IiMisVS2Od6IlyYlD/e9Racitbrs4p ttq5G685Egf4rv1Pr9eaWbiS8c4eCc9MBuM+UL5def OunLa97Io5/l7/X237Mz/F5/++PZF/4+s2b/PbqoPbi+phz67huVA4gGvZM4koT90mVOX21kOO4NKfC+ UM9C/WpxeU7o8vtZLlM1wA4ko/w9m8C/48qeRlnq6DI+JI5Yl31yG1wdnsH5Q+UU4Xqw7Tzip799jTLT OxG3JK7VzyFw1BaT6kF5H/QdA+EF3sn7XhGxm1FpLN 7VK7XSim1q7LavXnqkKKx+Fn1XE7R9ud+0zy01ECLihndbug/W1bJXtH3+vHK28s73V3bxQPZtHJ1oj7 h/6TzA89i+46T84Xov43pg2noJ/ag3mArsZl9an7yv/Ik7/mryq/hj5CqWix/zXr18EF3N6wJu35rF5V errr/jlCa/2lm+v+LUyrjr8HHYlG/yq/zy3GmsxrRj q8u0NhHG6C5Yx8CfU1sp/I6/mvwqdUx+pirvo6sfDvTn7Upxa2/qunxSF/w5+yI2jfPQWuF9UL7c+Radha i4euR96Zzwi1ci9un2dmrmk/+nw4Zwoh3nn+cOat4c4tk+W7H6k21xFyW/kMya+yzuRX7/WtP/lV1rOh L/iVgl/oJrhgFJ94bzKFbVMO7r/5yo5H8qoqR1/QDX 33Rv23/25675Ngy9cw2veg69g06mp5/b1WlCt+b6jHUP/V92y5/q62nt1kdbRU+UT5jc/3BE1nwj+qZ7 cqW5n8XT6tcefD8rgK/FVdy3N/c/rSYnSP3ZqGW0LzQY+OniQ8Urwhm2HNk1m943IwbZ+GX7Up2UJ9v8 i/esVz3qCkjiEh9/3xaci9yxmunTu4uf2t0ivJOj99 /7xc7lxTD74+bJm/yq1zmb/YgLrML8tgz4m21V0GUs9cJNLlI2y/7ck12m01+2g4NRytv6l6if0t54Tp o66M3vfBwF7Uv8LO0rBm11L/ktpD/Skf+goDr3z7E47c7wk3xvQAU4/Dr95nu+Ov2e2/Bh6a1Ygmm8/a uPkcG+i/A+596Kct13VsE1v/0Rx2XKYy+a+NO1+w5F avMavTW16P+iKg46cqyzFHV2c+PeOlw3n/xeRi3Rj4URlW32e+/If07DkRjdio9wSB5B/08yuzP28t+V NqF5yVqc1hjdDsELIUXo7t8Qa9FL0i3sbZ81/+YAF9A/Eq+HF2SXj3otF/NZ1HV7bSN4MxbHn+WuWv6h qou15iGF7tOEY+Fi5IhzT+Uf++kZRzcSyuz1skCunn XL+73rQi9pHp38f/02x60MEvWFcKvxQbUFyLWXrGT+XcyhXIsmfDI4cciP1RN2og6kiWjiLrR9at/MjW nR8Z+EKSE1uX/87k10Uqj8RWlp689pnxxIs+lb60Ln+9ak85MwqT6G7W/Gc7Rkkz5jj81246xqH/2rm7 ZQ9nw9xFafD5o8lKx+WIzgbm7/UJ24Ie1NQOkgmVt9 83L3+fIW4/2tA3+VXaYd/jB2RFutx+i64uJTWq1pS3++364ydtSTOfRiy9nzOhx26Il94qzGkL/0A942 y88In9U+avniy/3xdG5q/emj42RkN6fH/5Qkjb9ofL2ypKwzsxdq++25O/13KfXwS/g93Mw8yc8Wy2tm 4Hygd+f+dHQ+78aEig/qYeF5ingaiRE3k29r/+PJJf wu8UfkvtO02H4qX8eb351dgJwxdaN/lV1T/u8+id/w69+Glil17VwmRa9RT7KWyrr4ct8GpfQwhX1+98 iQeRZ6BooVpkAOsFC9wC0Fod+/5bVJ3Ol8a0hEm45dY14Olmmg8g++HF49Bqa/8Ou+PvsJvPGchfjQF9 k1/f57q5Ml6uDzafn+RXkuXq9/lmd2Dz1HV06ti1t5 wNlfXI4eTaay/ijfQJ1t/Uc+mYN8v86DE+alT+ma6FQuoGcSnHWtFTiiG6YGaNpuAg/ux4vw5/Br8aPl G+UL5QDn/1e22ODR040sVhWpe3mxlrL0e2JSH/Jy6nHBpvYC50jeH3Lnbe6Duqb0MzIH9V9T2QzP0Pup g75H8i3i+Sxdpo4a5xA+021jW0Ul7D3zfBkk0MpP8j +R362I6n2WgmvRdNvz+ZV45KD32YNfXnDj8AauY8T/Jj0CbY41rqs+BXY+W5XbLboCx3YC+QK39Vj19c a7c8cIwtqvG/41W2l19/MxHn8RoO5c110706f243mQsj91+GE958035lO56m/cxm9M1zg9ipi/IgkH35 13lB8kPawy+Ruthn6KOlWOgLm9/HvutzPPnVe/3td/ 5c/uzP5c/+8Dxiy70DcxhNU1/yLL/zX3/u+TgBka996n9o77zjb2m46r/q9/c6dq2Y8O6186Toq+gFfQ X6yoPy+35doK/nwSRmQWjEC0sYff//cvWlSFncOOxrh8ZasA//gEs3tlgaR2kvuZ+U5/yB1Xc586+cLb yV+CbB8Fu1YZcEB+VmuVx/9Ve436s4TPtH+cnn [file] eax35+f3N8q6F93p8K5k7ct9nlp9222uZ1D44Xx5j+Ln9/1aw8mZ6sgxfvoAF/7OU/W6/n9Ra7K1ibo6 bdq5eH55Oe4yCb4djBAhKFpfExsuZFsTF5+c9m6M/W QM2tC6LOpD+U4/5Tr5Azqte5fOvpx6uss6rMwnr63D+i/Wj6DqTsEvn/QJRouJhD85D4NV7TfjKCdgP8 tOuhbKW4iiVFwMkxjJ1B7/PA+DwwPk+EtmDlp1Aa8IWoV+KvbCp+V2zBeFs0F674lhdZPdAB1iYmewXH 6ecm88T58XUsKk4x2o1CsSZ3ypdgGkb/NblG89zBsl quasitcLcOBoPP6A3vDRdW+TvKDb/H+Mc1QRviiY/HlPD46Lx3pwLB9Kyhhy4+WS8YahSyO/BXMR/t4j cs+QezxxWiV4c9KZQrhzrkqXmxQ4QomQ+DCU0Vg8Xvb+ZhOqK05Ud+bCdOssCp7l7L/ireneCvrjx+la 19qh4kFFuR0I0QLyzkrHOEHAl7ZiZ2+qaMo1S2KZ88 tnOtEfzVOfby+I3XV/QTZlrPQQ7P7lNUp+px3J+8oGS8fgeIYL6T68ior5D7rBi7Ry2hEV+18/h5LsP9 m2n818rbG7e/iuc+gr/yvjGCv/K+LYUBOV/ZeEn2PUr+IuaA6aaJbsHm/smII7BG/0ydohzd0IKS5peM5jX +bhCbS6Xmw5O0JzGcw10cg+EqdKvc0jGiwANuVmM7y uISvrVvT6DvwC38oJT2TtsVCX/imcR/CDR0dMpEwaZI7/agZ2h3lnHQjrXbh7++b/Qf8w3JgpBE/dT3w gZwvFT9H11/32re5AlGJ20LuBmmUxfL4ni4y8bub2bmph/r0YDa0HqrqP836Q0OFeW+ZA4DgiT+UZ5fV 0Qwg8huI1hGVTxAZw7S5r9k0+Pljm7HpoVY81uuLcJ CeRA9eV5xCQ2KcW7+nNHf+3pywn9VlS+1YB/NRB/NRB/NRB/NRB/NRB/NRB/NeBfDfhXA/3YkD100Q0H +FcD/rXWtxOiJc92BlK11tB7wSTvg7QanoC0xxT/v0mfDNCmsfb+Z4ohCl5XHv7Mw9+W3BwPwj2v9A4O oGbZrTuNgIvK6QbB/QQOvoSULo2bMoX03AI/NSb6M/ vlFYUcgH6BvQyBAr4a9S+cvI5ozOscUja4cxWvwqw0ahm7pHWFhuGT4eDcg4x27nSkdYX5FwpGJ1Bc89 8H4q/NmdmjAU9wC9VzsycI4d4gdH6J4+3iAC7aj/e49Y6q7AcN/xlsb5fRhfYWlsYCmj8hBLD40vhYe8 bF54xd/NxXojP59c2dPtx/G883+Na7vs9qR1VazgGm H92fsgd3BH+eV/XneQnKFeXVn+gHdH8X2w7mvkANloJrW/k5nI2FZGK5De9iYmgX/ohen7o0wrX4Kcx4 J94xZbmOxfUQqyX4jn4W/WTLmvVG7fwHL5a/PbINI9YLgzKZE55t1LhLMfcP+IY1vv2O4vdecp4EFUZI kla7UtK8Sm2i0anflIBI22j6/+vbiLR9a+cp/ [file] /3/Tf/8vb9b7/75HhoC8+/+jCrD692/pDa03069wdS H7/76tO//GL/1p0o7mF817/66yfUmc6/lOr98Mllhx46e+jcc7A23i3q6h7qAedPIY0++t/Xuf/xq19+ /Orrrz//9NW33/yVX9+y8Y2dd6/14php5q55/Mcdbw6k7BnwP//mi1+//fLrb7/4p7/yP5J1+nnN84q7 9Liuf8r61ps//5kn4bp/9l9//eGbty++/c1vP//44c u3//rVp1/f//D27T++iVXjXeszaX/4Q97fsrI4vo391t75n963pDy/+Bbnod46hmRyn9/39Koc3u346c OHL//Ks21v0r71V/78p3//w09//PDg1a0b/0z13clp/vsPP/3l794+/vm//fjTX97+9b+I/pgbrn08D2 /qT2Q6q3/I/qzJZy+X9re/+U+q5smI1zIv/fGP//Af vOZeUrBcL/sDksAk5pkMmqU+/fr/BegLowfcf3/9PfubS+qKtwM0s3qan87U61Uv5petciO6ws3pVxwp +lqKnc4R22Nt//0Ii17okmzy2v5we1/07lDRM3//9Pn3H9/Pcu24y3kxT77/yI5lZt9/125v7R5/+a59 PKuAhVYuyYbEdt3xbj/95e/ffvrhLz++O/trcnyLVD n3j/7Ix+P/Wtj/9vNzH+i3H9/+8Ke//PjT//3D//grJz8N+f7k9/8WJtp/fvoD/jAQ916+7X++bv0Pf/ 7Tz8/veeZ+br84kOE783j/+OdPv+im6mpM137w7X2meo1e4dNO0r+q8mX3gkX9A0zUjXGdf2xB/fYXH3 /x6e2H/+fH//jH77ct3CZ1tFc3/fJxEWd43k7XQ//r p3/925/9+jyIf/zxjz/3v6oDbH/Dv/jhf/7+h//4ww9/+teAMieA4h0/A59W+vjnP//ec2uxVG55i5Ga r//8+62M0FMgAyEeRrdHBz37+//+pz/8/hIUs358/PzLL7/70WBuW95U1m/42b+3wKp4x0/85dXB/u2z T59/8et/+eLzj19+9fl/qtI5FvnI1/7mNx+++fTdZ5 yh7lnv//7a3owU98lNga/94f/88U3e/vzvb+0zVOuMF07iGboBqeig/+HLT5+0uejWjDbYj69+/PLDx8 /k5c4cd1IM1lw7A461+/03r9++VvjiwRPjnZ0IFEFhXVV9hm5TuXEUjWbNyNS3uhetcWROrIB6nyn x6L1PleXalJUsSDSZeFx0ydLYvSO8YVYF5GDphTTVs EGXlK9TukU1lD16dnYEjVkKgLQYBZK9VnoC5RVV9EJC5SVOqGdCpNHEaWM14HBRlJZUYRz9xayMyGxvM WzGoWJ4kseo5S6W7mZJsY427rNlsvsVsEC0Xf1UzmWLnPF0EdJUjaSZxRLLoZDZiC7jnh6QwKWjeFIQA Tu2ptvZoWuoAMqXxLQ6ebze7V9Y1sRnczwWkLWLUXR kfXzkgCQ7mmOmccesyF9CuyNEtOYOxT9McAVEtr70XSAFiSAlQPjDhEtBtSDD7RfSbXBacWqLuTEZuCL GsJAPmVF9YwHXxWGZnHUHRBRqcBoquQSJonY3hkIXGo8ZeT2iPMHUYXVknFDmQZiXgXvy3RHF0WbzyU4 C2PxdkZ2IqQR1WG2KaVDDbOFXPQGDsglBuCR5MonLq mQ6oBJyVKKGXKYfFJJdsPiF5w23pkpLSGDGiZAVgAFvqINQaLNRxUHQvTUAzRUBuZIIwXVOdYJ3JC9Kp KKLoKPGPMGE1k1GlQMEvjmbdonjfRq9mepUyQzk+KrmjYHYxs0CyQZblR1S6jSJiP4GuC3TfRH8IqEOa RZmjNSCpQNPrBQAbY025jnZnLL1+WL1zu4UvPcztCO NJMTZaXGDiPGTmWMH5VfCxOWPdDHBpFFSuXvC6QfOpZdUTMHOsCQF8VKQ6VlGgPTTvFZZkHCkwLMPhZO W7GQIaJCQlOYPsZB9rKiHqKVAgFov7SPPkMYBiATWgkvHHQXQeFXAmJHDrTIV0ZDCxXUImOQdaCUCfXP NoBAB4XDKvVRXyIV0vDpVtNBHhFLEyMmjgSOQpBNAn qcOLKOVxCIKeQGO8QiAyAJOeHUFfYAscKVSpKPIvAfa6FVKfWBTcFA6jNdYrMBXeAFX2FHnnARGqIEWd zrFBSBZeYENhVHCwSrFqDBOjFVBdWXkjJMSjHZYiNcTqSRPfLWIyDN4yCrKuMLDzFZW1UKUcBRKvFCHf miHRWAQnSLPlJTd9GSEjAKAqNSPbNJwmWBNoKRLiGS E9SROtCEIjBO9gMkFdJQCsOLKwLXFhHJZeIWDkhhACRHFtZANbGWC7ZTOlYDKzYRXiIQctQIFlHJFvDt m2PREyCUPpSR7pVdIgUSWcLWI1MBNiEYRqAZUltrUOWZHhBBF3HTr4YQGgBEMlCENoZIqiNWZqNVKvSo D7LYPmJGQrIH9zXuYjALVaCHU9QxLpYSDhYZZynjIM IOQmHEHrPAL8FdDpXXRiRYNjANoaAISkIAYuVRGtSTP2DLZ4BUYkTeNsGIftBIGEGPbRN1OdsdKiWtMU W4qsUe3wCjBiIWCQE8Fsr7EdFQJiYDVENt7+YaT8FRC2eKQpPuu9ZOQwGgcwCHXDLh== ID Date Data Source [id number] 03/07/2020 05:31:59 PM EDT [facility] Name Value Range Interpretation Code Description Data Belkys rce(s) Supporting Document(s) [facility] KGGNZg4oPcNXKwDoe8MwSqYfAAPuNL1tmbk0D3P0rAAlN7HwaDKkp3rdX1TzZ0YzBJUyAVCFOX2MkPHx jb2 [file] l+8f03n3/6+PLb1+8/ksaW77E/knFlhT//2be//PSLV0G+/OIff/Kasey+e9NeqbW3957miUe/zFrz7/9O XPP/6L79847jqd04s/4GEhpaAwk9C+l07kh0sh+P+a5ZsQg67Y/+Majpc7h8pRv/7626cyX/32u69+8V rkmON1X04q/vTHf//9n//ww799/Nf/9fHF7/364066 57/83cenP/3XH/78l49/efX6v/ztx5/++LF/OumWgLKci5H/ew3aX/3iP/OKazn1Jwx0jy9++h/6zbNr smt5sf/wG+K5C8Eboe6o/T/B1LBXNO9/L3+bv9ZNxeQh+/D9Nj1sSgnXpo3Tw64+LuzXgizl+nG9NK1X i7bEVRA54Nqw2z/8+c/pNj94yZp6+W8+ffnldx//9P t0w74j6k0+lO37s+ylzFk8kH1G/dlzUP/geO948tbl33IO9f+z4Tc//PEvf//x59/86Ox06E6v3ixP1S wv/UG7x/+lawn caretaker/4g4vU13tbCg6/x7/88Of/+bv//dznm2R6k/z5b/JewtSPsw/mP3/69ce//Y9X0X//pz [file] VIZVEm9Ol400ZDEdXNMGPbb+VkplhRQxpRqiYJCVKzV6YccNXWJSI3V= ID Date Data Source [id number] 03/07/2020 05:06:54 AM EDT [facility] Name Value Range Interpretation Code Description Data Belkys rce(s) Supporting Document(s) Leukocytes [#/volume] in Blood by Automated count 6.6 10*3/uL 4-10 [facility] Erythrocytes [#/volume] in Blood by Automated count 3.98 10*6/uL 4.1- 5.3 L [facility] Hemoglobin [Mass/volume] in Blood 12.3 g/dL 11.5-15.5 [facility] Hematocrit [Volume Fraction] of Blood by Automated count 36.2 % 3 6-45 [facility] Erythrocyte mean corpuscular volume [Entitic volume] by Auto mated count 91.1 fL 80-96 [facility] Erythrocyte mean corpuscular hemoglobin [Entitic mass] by Automated count 30.9 pg 27-33 [facility] Erythrocyte mean corpuscular hemoglobin concentration [Mass/volume] by Automated count 33.9 g/dL 32.0-36.0 [facility] E[facility]th[facility] distribution width [Ratio] by Automated count 14.5 % 11.5-14.5 [facility] Platelets [#/volume] in Blood by Automated count 159 10*3/uL 150-400 [facility] Differential cell count method - Blood [facility] Neutrophils/100 leukocytes in Blood by Automated count 65 % [facility] Lymphocytes/100 leukocytes in Blood by Automated count 20 % [facility] Monocytes/100 leukocytes in Blood by Automated count 11 % [facility] Eosinophils/100 leukocytes in Blood by Automated count 3 % [facility] Basophils/100 leukocytes in Blood by Automated count 1 % [facility] Neutrophils [#/volume] in Blood by Automated count 4.28 10*3/uL 1.8-7 .0 [facility] Lymphocytes [#/volume] in Blood by Automated count 1.33 10*3/uL 1.2-4 .0 [facility] Monocytes [#/volume] in Blood by Automated count 0.73 10*3/uL 0-0.8 [facility] Eosinophils [#/volume] in Blood by Automated count 0.20 10*3/uL 0-0.5 [facility] Basophils [#/volume] in Blood by Automated count 0.07 10*3/uL 0-0.2 [facility] Nucleated erythrocytes/100 leukocytes [Ratio] in Blood by Automated count 0 /100{WBCs} 0-0 [facility] ID Date Data Source [id number] 03/06/2020 09:21:20 AM EDT [facility] Name Value Range Interpretation Code Description Data Belkys e(s) Supporting Document(s) [facility] ENLIWs3xXgRTTuPri2LrZqGvATUoHD8snep6D1G8wCHpW3EvwIOzf3vhN3HwI8CtMPYhTRNHRV6TzJIn jb2 [file] XgIqSc3Lv15BaS4inoUPJ3KDqYZ4L4op/3sFZeGcotiFcR1WXLp9mVE5ojOa4Pi75O0rKHYy/8wsU/berry picker [file] ysO7/RdUVSch0Vb6nfatC9T0ceo4stYoC2syjFQq3o91Vanz+RP+78OcedP+e88+analytics manager/6c+/2ap+/7Xe m+61UrO1i3/Jrm20sn63xrABVfb4vbbKXX43+d7RzqsDcrEzih1nXf/9hencU5+XB2IP7K1pTvvfaH44 w53liYcR/ODNBx38URrA341azlF/Az1phc5ovP7Tjv et85gZyLT7+/896OEn/TA/kDz0/UM5G/kH/oof3ocyVWc9sTyT+3/er8oj1czna1wf45+dJjDu7thCU5 PSGN/CX2lwbC/Er7risrswnUGUO/v/9x38WsC6CZ+L3mnaziIdcinO+LvaUFy5dhvV/AN7vrjP/o53zn /g564KDpn270pMg58m5rhdHSs401yCaxgngdqfZ/Ir 1wk94ppJjuZimK+MYK5a0yHaKpFtikEeHEG+GKfYtunB0vy90g496yqapV8zqJ/Piz9J7o0kjni3r4zl Apr940TV1Q3g0crXdOrnS/P46ympU/RI9alaN/IX/d/M2vvJ+nA6wd30IySw/cVS8ui3Pau69EN8Hiui 5H1WxBe+C668WTgpL+1d0Rpp06yde7sP+oyt/rb1P+ Xn+d1qp426Ltc/31YPK9/bm8pd8jjucI9kX8vy4w1h1Prax+03c/yPJ5R0iDs4fHnm+9I7aE42qwljrS H2T10FEz/hIQ3R70nef2+ENaLdZepy8NP7c+op6J+re+F52uZ20537cNiI/IL8jf+jkNQM64q8RkjH7z zhr75mRd8u/zq/L11sd4GN+3ldylQ3UL4PggXD7grx O/OgHaL1/fJvjZn4PE3dYwdj/Lu2L3hoXcZm903vdeeAx+Ir+h/iU9SGKL/J90tpcXnpy7FUHQmZ94Qp jaW1oQK7h80Jy+jPEKGj661+WTRfzK0/X2c/KbBcw5ogudhRzmavxI/L47bAcjr9Gd5lcbdKKhn+ZXmo c0jTZQg+8aP9ov6JhJIoT2+qrN5ScgoP+vHXaIteu+ C6re49mYiru3r1f7vDK37WaHN3/Jb3N9qWWGtBw49riDOPkve94HsSS2zEtD+1i1y0ukM++oal9/a777 /Sp+0xiZ0eInd0+Edf4qyno5o+lV/MqDri/qrXGS2rG39/3zy1V3bqvkvzFP7FYoE6/b2fud7NUx0kCg d2003DKhk0m5MM0A0kMc9296dTYBJy71qkoZRfuMYm a+80nV+FP6QB90JUA+5cHZ+/4oR9h9T9kx911+wuBhp68Eaqatdm0wML891vylR7AxG35MVji3Dxgj3o 728tEzE3z26VKad15304n+9mfKO3/bsUygS0Z+m1+dZxrqMdRvyO/S80mvlP/In8i/49QJpn5w+3xLCW gb21zF5dpt56kyQm3duwo8+psekXI8ZeoC5+96tOOi 3/pF37fZOawY+RP5C/WsW7+lm2/cCq71ZO23aqq7T1H+VlF/S0gjH/sWC5c2PgPES7O+4ldedqL++fKi jsRt0KiehdXTeJ/Sz0sufY/Qx6bgtY5S6I73Uol2nna332o8rqW94GiD3bC+ZXT8d5wCa+88sPmVzwOb X+f1zj8x5LaIlbAkis+jnG8a+OL1LhcD+RX5+/eFzd W0jIZdTPj7qjDEkoZ8cz3i9hJi9VOBA/Zf9sgamzhRxdNKq191ixZfkRzTCk/3Zc04e16lhgyvZ79t5D it64lqy7Yta/nVSRfkF+BLgW4VJ/grfb2tvrue74xod5u08c6c/1C47K9kwyAAH+idoa7kJe3UP+9686 jrsnzkL496stp19wh/8uc3v/O0E07360z+za/eNPIr nq+3/4tcbm1nKu6GF1Mtt50zdsuAcd/c/juazmk0lV/kkB4nxuMte6kI91ph4F57el/nQBP1zA5v7H2d D4Vunqklvc5NQ/kF+ZVZU9LFSC+zm97+7GW3P0+l7+9lOzzZ/X9HJ/y63OYLJv84rII/prZDk/23uR2Z /Nazx6/Sm1+53me11cxrEd6APG/w/IVDgtWxc38qzA /WC8DgwSwytdA/IH+qfeeyjT6E3gcRbBN0c/GbH98c2n2t3V0gR363CN1NugZ+CK2B8Ly2d6h32Qzzh+ QP5A+8Q38uPv9i3wunjSG8l/nVm0Z+Ar1WYdIb0xa57weubtkg2vS51W7RY3D1tz0X6ZQOeS4+XAf6A3 +uE/1Z6M+6/uy7rz8v2Umi7MeWNg/pgvyC5/F+G95v w/lh8nm32UzO4kS+G/MqtC4X84bvwhnYewwM+uYb/HcBjCigE4xw7qtmRBP/1lHD6m8q8qP8gBnT+h0/ jRP8tcC4t4lmpG/I3/a1AEPGe4EfNB+IG3n1691b+3741blq63nyMM6p/xjvwk8gZh40/vKNHSp8+tYx etgJm8b31v41q1ZuH/y5Q1/xK9lB/Kp4+uVXzflVVf q+X/CrNjB+wa+w7vfw38G77oi7K/Ebp1eqwqnv08L5Yt/yZ/B+x0A9E/AT226yewTCf/UdC916uWve/O qkC/IL8re+2dObxyot/fkR7Ilb1wtbh17Tqo1caff5cyDKhKs/sjf61/duO/jXz+t27K+c6t1YYo9v7B G/of4D6w8jx+ju6qIcK7izoz885RrZ1sK6n20YylK+ 39O3P+fo2zChLgeDxr5yK3dGm7FroT/vbuv+bvM0wrPgucMh1XLJm2KFrVO4b537c6Hbwt7shmUS0OCr zAR8NkQ+coDr7HpQb9soNxxde4P0E3v62/ND9W8ryFvmcm9n0nzG/dn+1Q9r06jTTBgms5Eou/uD6fur 0hf0f4FF06wu2a2Cqo9/rj27m51qeG645tqfDUy+IL [file] /uO5T1n2x+dPv/78y2++/urbTz9+983vP3//u29++E8/+/z9r7/65Y+fPn36/curt//vDNd58/ff/5h++/ +rm2b410IYvxgmOl1soxqKTVNE/gnw139+PvPn3/q//0w69+/en/+ErXP215U56//vsfP3/7q2spji/5 11/97SQ5zv283sMRq2h2/Ztf//bbz//n59/9K+W9e/ Vb3vff/V2czvy6ny+/++W3nz/67gxwkec7E00+5v6mem6Kq/7dp99++99BimG4sqk4/66TQ7495nsxSf /38f/vPv/6I+xbQmy3k1x5f+9+72Nqrh69/vrvfvozi+f1/ed178m8/v03v/i07peio/fpq99/9c23X/ 3i28//ykOvGPE+9PVf/vxf/+mvf/fiG777K//z09d/ +Ot/+8Nf/+Xfffr+L//lj3/9l0//+d+U8Z//7ae//PnT/tsy/ta+4/e9RG3b26TZi/5f+ry9d23d6/jT n/72n/mDa4zox/PB/tPvwW/vnnb5/fnV/rboMN8c3/d9663ejGtsMbShq/cth/C2b5GvWpanJ/0S7I9d GvX6+mNIf3p+6oGAiPQd28//9Y9//av11M8/ffr6V9 9/14sywcQqO32+/tPHSPnu8/jntLx30Zp76w/kT026cke4eDmn2wJ6fP/HwvXYNKerbdh7W0T427/887 /8+09//cO//NUN1c50xZ4BabL+6E/3QVIl6r81l5NgdZ1+/+mf/vwvf/zr//OH//6vFB7d+EEm45KB+z jS/5X5LF1701/79I//46Pq//SXP/+1kHt788KeNdRd /f0Pf/v3P/wDv/BqUbo7n6J29/bVvyjd+taiQVrflp/U/fQg70LHtncHG+23y/rtz77/2Q+f/vD//vGf /0lLag9xaY87upv+2E3f3BI9Ty16//Ov//nf/uTX8SH+wx//9If//sUHPl/wv/7D//iHP/zzP/3hzz8p Ifp6Pv/0E+btpe//8pc//fyr1n/bq6gAz5/5hy/Xcz OUEaTAy//hj//w3/78T//uRSQqp0ncPJrHl4ytAbroT//Da4M9w6//7ofvf/FtV58lpG/uleFdMvkg2Y vdb//wf/3xU/n0l//6iZ/phfrCdP/96tQPpM7AdS//3aoPpn4iSj1tQb9Fn/n+l5+//2fXg3XXc9Smbc r669/8+N3Hbz+FmqBgEf2c/y0BQYhjFmcgmzWpsWSy YU9ZXO0ra5GwPeE4LRBtw6XjEXnbQBy5cNIzRHnjrpBwv8AfgvimI4Kdy9GsCtUvTGHkLgJkOst5MLUr JiX2hIVyYzBwCIMzE0DyYPBbRkB3FiKfVMDVWC8IQNAqgbYgFoGvGCP+GrPkEW8kimppIRChv4PzEWxq LIteCVFiT1M1iWwfCMOaC9EsmG82XMAzI5IqilN6NP S2KXRbMlWsGINumNHuATZvYTA+EmTsXH0doktmVBOph8CrAHrzKXH1tV5dHGsAYMGBUAyTAXmdKxL9m3 8enuIAPGHeEHBlDY5ZmvDedNbplxVmcSHlHWS6DpDkVXH8KPXxTUZyLVQGUSGsIBKpHFJmZQJgJ5ExgM spTJiEYKAFNIpVJEdsLyOqf3X1GDPurjGYAFUGRd8I GCexRdUTGQLyRSfaSUE5MCMvL1BpmuZnpGIdFKWOOEnmIoudSSBwzV0aqTiqN0VuYKQ1o9ReQZ7BA0Ta HCGkSWBSBVL0m4LaUDAmpiebtsqdSpEdSLCtAIUlROSjEQ9Wws2sjLPykwGtEMRNIIzfRihpBK7mxWca goriT0QgsJGbQVP+HhWvNO6kxz4+DsIfLGAlBzv6SZ SbSJepDKGiRCFaPYVhR9nhRUIrBcSiQRYkKwZwNF9Dy5MwbYYoRr7eedTfQjyXeTClPkgyMJBfSWEbVB KwRoGPEZVhIRPtPWAqWEJ4MLKvNELaOUoxEFMnZNbkZGI5XXFvKPReOD6rOpGySKWlBaFaYgIaHMYoYX TqsuXGLOEzVYG7WgFdZlPhCRQwTYClMVtiWAQdJKNz MGKzVNU9YAG3TTFoNxOiBDZaAIMxMXLnKCPwYPIkzeYHDETePDFrRAV2VCHvGSWqOJKyYEmeBYClKVMe VUzbCVDfCDQiRO6mQyFlADAdNDUdXWelZZXgPUOgeoZOITXsLSRtNCWuVOAdRZLqDXHlIMllBQPfABQi OBFeLCWlXKYsLI2oIxTsORMxWRP0LRAjUKUpBUCbsw QFDUKnTHYjXRx7JFNeYVMfEYBoCDdjDFDmEXRdHEB1HVWdBGUtEU0cEnLwBSPhYBO7GwIbQTMmEUDbvx AMYDAlIBBgREO6FgRiRTFbYMDdKXbiXYMqGFXlKWviQVOxUHOkFJ5hTcKcCEQgCWYxKTwoAMXvZBVinl AKMDAwMDAwMTQwNiAwMDAwMCBuIAowMDAwMDczMDMz SJPcFTOnVR7jXgIvDWVpNJL2ORbaQPEsXWAkxnXVSGSyDKCyQWanCDEaHAVaOIIrQCarJKWcFDPqNEY7 TGGzAIJbCJ9aUsFvGOCnHKFwPQVlNwG8BfLwIvWOzNJyrEmqhog5ITdoF3d7AQFmIKayTF8ukgQrZXZk BaxyMo0pcZY2VZJgOrkOVj6Rs6ZkpdS3crWmSndePHH2SmEgCP7D ID Date Data Source [id number] 03/06/2020 04:11:58 AM EDT [facility] Name Value Range Interpretation Code Description Data Belkys rce(s) Supporting Document(s) Leukocytes [#/volume] in Blood by Automated count 6.2 10*3/uL 4-10 [facility] Erythrocytes [#/volume] in Blood by Automated count 4.29 10*6/uL 4.1- 5.3 [facility] Hemoglobin [Mass/volume] in Blood 13.0 g/dL 11.5-15.5 [facility] Hematocrit [Volume Fraction] of Blood by Automated count 39.4 % 3 6-45 [facility] Erythrocyte mean corpuscular volume [Entitic volume] by Auto mated count 91.8 fL 80-96 [facility] Erythrocyte mean corpuscular hemoglobin [Entitic mass] by Automated count 30.2 pg 27-33 [facility] Erythrocyte mean corpuscular hemoglobin concentration [Mass/volume] by Automated count 32.9 g/dL 32.0-36.0 [facility] E[facility]th[facility] distribution width [Ratio] by Automated count 15.1 % 11.5-14.5 H [facility] Platelets [#/volume] in Blood by Automated count 182 10*3/uL 150-400 [facility] Differential cell count method - Blood [facility] Neutrophils/100 leukocytes in Blood by Automated count 63 % [facility] Lymphocytes/100 leukocytes in Blood by Automated count 22 % [facility] Monocytes/100 leukocytes in Blood by Automated count 12 % [facility] Eosinophils/100 leukocytes in Blood by Automated count 2 % [facility] Basophils/100 leukocytes in Blood by Automated count 1 % [facility] Neutrophils [#/volume] in Blood by Automated count 3.88 10*3/uL 1.8-7 .0 [facility] Lymphocytes [#/volume] in Blood by Automated count 1.38 10*3/uL 1.2-4 .0 [facility] Monocytes [#/volume] in Blood by Automated count 0.74 10*3/uL 0-0.8 [facility] Eosinophils [#/volume] in Blood by Automated count 0.13 10*3/uL 0-0.5 [facility] Basophils [#/volume] in Blood by Automated count 0.07 10*3/uL 0-0.2 [facility] Nucleated erythrocytes/100 leukocytes [Ratio] in Blood by Automated count 0 /100{WBCs} 0-0 [facility] ID Date Data Source [id number] 03/06/2020 05:07:13 AM EDT [facility] Name Value Range Interpretation Code Description Data Belkys rce(s) Supporting Document(s) Bicarbonate [Moles/volume] in Serum 29 mmol/L 22-29 [facility] Chloride [Moles/volume] in Serum or Plasma 101 mmol/L 98-107 [facility] Creatinine [Mass/volume] in Serum or Plasma 0.86 mg/dL 0.50-0.90 [facility] Glucose [Mass/volume] in Serum or Plasma 92 mg/dL 70-140 [facility] Potassium [Moles/volume] in Serum or Plasma 3.6 mmol/L 3.4-5.1 [facility] Sodium [Moles/volume] in Serum or Plasma 138 mmol/L 136-145 [facility] Urea nitrogen [Mass/volume] in Serum or Plasma 18 mg/dL 8- [facility] Confirmed Anion gap 3 in Serum or Plasma 9 mmol/L - [facility] Osmolality of Serum or Plasma by calculation 288 mosm/kg 275-300 [facility] Confirmed Creatinine/Urea nitrogen [Mass Ratio] in Serum or Plasma 21 [facility] Confirmed Calcium [Mass/volume] in Serum or Plasma 8.4 mg/dL 8.8-10.2 L [facility] Glomerular filtration rate/1.73 sq M pre dicted among non-blacks [Volume Rate/Area] in Serum or Plasma by Creatinine-based formula (MDRD) >6 0 [facility] Glomerular filtration rate/1.73 sq M pre dicted among blacks [Volume Rate/Area] in Serum or Plasma by Creatinine-based formula (MDRD) >60 [facility] ID Date Data Source [id number] 03/06/2020 03:25:56 PM EDT [facility] Name Value Range Interpretation Code Description Data Belkys rce(s) Supporting Document(s) Magnesium [Mass/volume] in Serum or Plasma 1.9 mg/dL 1.6-2.4 [facility] ID Date Data Source [id number] 03/06/2020 03:25:56 PM [facility] Name Value Range Interpretation Code Description Data Belkys rce(s) Supporting Document(s) Phosphate [Mass/volume] in Serum or Plasma 2.9 mg/dL 2.5-4.5 [facility] ID Date Data Source [id number] [facility] Description Data Belkys rce(s) Supporting Document(s) Hemoglobin A1c/Hemoglobin.total in Blood by HPLC 5.9 % 4.0-6.0 [facility] (NOTE)<5.7% Average risk of diabetes (ADA)5.7-6.4% Increased risk of diabetes(ADA)>/= 6.5% Diagnostic for diabetes(ADA) Glucose mean value [Mass/volume] in Blood Estimated fr om glycated hemoglobin 123 mg/dL <126 [facility] ID Date Data Source [id number] 03/05/2020 02:05:07 PM [facility] Value Range Interpretation Code Description Data Belkys rce(s) Supporting Document(s) [facility] [id number]/CTByuWQTfd4RqXCsxBQe3RCqoQDMpU7VqINI1zU4hRZG8KSyIXnJaLmTtWQF2 [facility] [file] nilmsovRfe4xfmcqK9RmzpzN57ftWgmkwU8xdhbvQ4 5yGwqUsoxzJb1RJRhVhtJ1LfmHzOvYsXpik9mYLQiNtgS8wyaRx1iZoRKrnmqlp382Wmk8mBTmu8HtYm jS7RyqK6D9yL0VzPL7UxVF6yREAeIIJN6wtfMVPcqnGXzCQ3Hb9adADYY+QuLbtDdThfMtVfZWjb5Rxx UxU/62/jpHsmF/m8SX6SdUGNejf8nYvT6CRqvbwxon N+/hev+yUaDEqusiHhyWQcJZ7UWbRaXH4gyo2PQiNfQS0ypy2IYMP6WJ7DNTSrUI8TaBMdB9PqV5ZOUf QvBJHgHFJvQD31EQFfXLXOIKsvKYSpN6Xax625eoYzzsQjKSEbBf8LJDZqWZ9BXXSoUBRgeDIyDZZeKM NiCwE1RDYwIZpdUDAnW5GrveIxreQtFQHqNMXJLAav ZGKbF2lpn7ScBQz8LJ8OJJ9DseOgs3FyohZrU6qtL0LEDO3YYRNiR3ZIG5FxR9rrZdUtx3CcV5ntJeZm c5WrPz3JQzSqEg6RRwIeDF6cqr6BTXNhMB2ubp4KUQS0CF1VrSs8DSKlG5TqMZEpFXSke4ZfXL2MNK4p qDoiGdT5He5+JUkgQMZ5icEbkV9BJJYaUbza37SJri +q/Bq87PswpoTzjLLntmW4dTLdqwUIa5rzzmUSIfQcrgPP0S9rKgkUT+IDbvlrYxygxOg6snVPKYDs35 8T88fOIOX3+28kVf4gMWJ29/rXILJF/078/B8oY2ie64X0o5NNt8848Dz3fK38wSr6biEE36r/mwzEz5 4uVPfLr4fbJz4k+HR3dlOjRVz6CDpzd/95tYZUAQs5 tdg/UEBKmFl3cfQ07dupFzFe08rVZ5rzcSivyfszFoH+P58Lgg19s767y1v3c1L9J3G9vQfZG0dECw8R Tcsn5NgydxsF5E3NUj5paPGZoqqZPel7bGGZWS3B/mr8oTzUxgG0RjQi4uqpvw2kb2SJidQjONXfinze lFbBUYk1ISY8GrwY78udU5Tfe2aubInY01w+zotHKY sCSS81zu10z3wD5pe/DM1ioNHgRjxSGCoEqaxg1oYxibco+lkI5oxppbVWCyywW/7szFqwgG3na+jLY/ iInVKMZZtVyN2UM8+FFsiOq0IEc8JiwxynN7NKLZuHqY2hJkTPPtqj59xVilIrTvVCdl9PgXSQmTT6Wr v4Jsuc2zGav3WmT9aPwAKjNjCGFMGOpBV6GT+atNCB v41vJixSnAg0y0y24EE569kzXVeunKvJ8mCdZ6AXXt3/Kv70IhnmXP4mQM7pW5sHa7g4MMsNcabqX0cb 4zl20QQEnlRE8LlWhqAlZ2OdPUpdYtt8dXDNxKvKDm80WJ1LdboU0zAJiI8pcPvDQMXnz8UoWjSgLpQi fBLLYsTtJeLgAPF+VcxGO08avP4WjET4ZEoF1pPzcK 0mL20uYR4M66qxZZ9WjYBE6vFQ8LisUTSmLmy4hv4VKVEsN4FLKsGOw1ciNycgzuWEtTo9sjtD0SgdeG +39moepM7rz7MH4EGqh2iiedG0YsssiEzpfyFMsSbXy5WjmZa+zN4ltSfo/probation agent/epl/teO7m2JyGyPDg [file] ICAgICAgICAgICAgICAgICAgICAgICAgICAgICAgICAgICAgICAgICAgICAgICAgICAgICAgICAgICAg MKMmTAPzMFUqFNQzDLHvVMLgARZnRZWiAU8DQFGqPB AgICAgICAgICAgICAgICAgICAgICAgICAgICAgICAgICAgICAgICAgICAgICAgICAgICAgICAgICAgIC RwKYRlKOFsAMMxJGUcJSOmSOBkHCCoSUDnHBEuHZFhLYFpNZ4REQUgFMZfLRWyFNDeQZOcHBVbULYxOT AgICAgICAgICAgICAgICAgICAgICAgICAgICAgICAg IHPaIEDjPEKiKWErCSGbPFVcFFTpFQWnJYLjPKAnPSQyLFAfFFVsRVRgMCKcRG3PXVJpTIQbSRJnRNEh ICAgICAgICAgICAgICAgICAgICAgICAgICAgICAgICAgICAgICAgICAgICAgICAgICAgICAgICAgICAg ECQzTLDkTNVwAQKlBHBbCLJuKNQgAGThNNVyBG6RUA AgICAgICAgICAgICAgICAgICAgICAgICAgICAgICAgICAgICAgICAgICAgICAgICAgICAgICAgICAgIC LtSOCnELHvDQYjTDBxIGKsCNMnPTEhQLYgSPXfZDAfZYOmBLFjHD7FRQJwYTHgRJVdGNZgVMRrFNQlXQ AgICAgICAgICAgICAgICAgICAgICAgICAgICAgICAg IXUvQBPjBBPfPVVoJXHzNENhJFOaBNStIPDpNGOwJOOlRRRwYDSyWWNpRCIfXMVlXB2FVYWsPSNdGEDf ICAgICAgICAgICAgICAgICAgICAgICAgICAgICAgICAgICAgICAgICAgICAgICAgICAgICAgICAgICAg ICAgICAgICAgICAgICAgICAgICAgICAgICAgICAgIA 0KICAgICAgICAgICAgICAgICAgICAgICAgICAgICAgICAgICAgICAgICAgICAgICAgICAgICAgICAgIC VnHSKsDKKaYALgAKTdASQiDRYhZJRxCWDgEKSgCWBnTZWvKCIjIDXdRK2EMRKqFKYzPZYyPRBoPJUzNV AgICAgICAgICAgICAgICAgICAgICAgICAgICAgICAg CLZzJQEeBNAwWJStXUEtUSUkPDYrSZChHMZwOCHiCRRxPOPeQLVyFJUbNNYrLHMqBGMtBO7SDFSzTVFj ICAgICAgICAgICAgICAgICAgICAgICAgICAgICAgICAgICAgICAgICAgICAgICAgICAgICAgICAgICAg ICAgICAgICAgICAgICAgICAgICAgICAgICAgICAgIC ZrKO3WNM09cTCbp8I2YCYoFC4yrtq/Fh5ZBIrgzeQwxQWeGY3GCyVoGR4fgy4VVdGoFD9fbc4FWKcRRp LxD6I0zFZrYSZtGPXMJiLrE64kHYslDe15PUmaKAWtJhAfACg8Nn2KHaUzO2feUUTlMvI7SVSrEwR4MZ XsDxI2DUShUsNgSSMiBNFeJZOwNPGKGAW8CONvAlGu QgLrMDEoGDppHSVPLTUpASCjGgGxSbFrAXYnLZ7WOLRjW745iaAtFPUTDn5+DQplbmRvYmoNCjQwIDAg s2UlWGf9TX1ORSJbEonhg3QuVYAzXXCQZZshYZ1XFRI7OHFzOIYuVj2XGCXmR802juEwEU7EZr8VEoOy QP5wko1QTMWsDZSqAcxBPou0JYysLK8AqCJfWUwBk6 4ypYy8jtOwdLIUeLAklhG5HNymGYEnjC3sPvkwWN3zKNZsFZ5rFJ6sONDbGGJwYoB9GRSVWB2RTKNqWN OvnKCaGNFqUXSCAQ6ACFmkPDB5KCSwzjXrtYSnMMvxTW1XGFWkzpGaTXKsGKVJFDb+Cy4IQP6py1WsUV p9UvHxAO1rrm0VVWoREbQqH1S5dKXkV8A1ZRufNg4P YLNbXVGqLznrMFVFYSrqSO2OKA7oyeV3YS6OzZTyKNIdOGQarTOhAHb8S62bwYNrIOkdER7RKAU+Willow+ Sx6UVWRdYKIiDJTrFjLaHWJNNkRmX4VtM6DUw4ZuX4JhFK88gQujboArWXvdSJ6GMQ8kUUSvGGWBKZ4Y uZIopN2pptM0EQAdCZDGJpHbC97tpKWuZOJiSYT6LD ZfSz9MEEBbB3WnreVbwVhymbThZCHhORYZOH2FXNrlbwDwrZNpsUavFW74bZbcXB8JNn7HJfJiWC2cnk 1CgAOkLv9YFVK3Tr1PJVSlNNCfAJJdQKD6WSTtSnOgMSkhIMSgCFPbDLA0GNDhCUDhKN6BTrZbVTVpOZ duRbYuBTDkADZqjd4SQEGeYWN1KREpYRBkLCPuVOPx XZopAVJqBPRcNAO2WRAmHLFgDB1MBgReGIHgVDP8ZOVtIOVyXVWzbn0BUEDnJRYaUDs9ITIaCDRnGCGj ZFjaBPZmCZB6UwveZIWxGASxTO8MOeSiPJYyBVm4CoNjCBMjFYAiqf0WECWrZVWxOpy3JvMeJRWfDQHx EPliMAIlGKClUGV7WCPeJHTeYE2XQzZwDOUqURilUX ShZYDnQCDwbz6CLRLfFDNuTyH9FoOuTYMsBENvHWmeDBKmUZOjCUY8BWVeFYRiTY1RDxIkJYHcObV1JI EnGYBjQOZytp9DTLWnXOPcOYO4HDDlLNMsVNKbIRagJCFdDZG2QFowJNWiDEQhIB0GOjWtYZYsLdwfVE qgDDRyJOQahw6GOLYqRZMtWZS5ATDgEBWfOGGmNJul TXBvNQQ7EPN1VKHgPJYmBV8MUbXvJDVmSdCyDLGzUHPqLKFdmg5IKTHhNPOaGTE4TmHhDRFzAHTcPJzs TPJwBIP3EGc5DQRfSGQgPC9DMuQuIGAqVWE6GNKsFYBqLIBwyl1JQOIcFIT9UwY4HKNkHSXzWANrQDyz CSYlBJO5MHB0XCCfTHYwGW7RMaFxVUWfGVHyLZTqIE FjEZRxeh6AXLAxFKQ2YEY9ETGuZRQfSLByQJrdKTQnKNU7VxC4IXUpDTRmDQ5JSiGzYUVuFAX3KNfbEQ AyBXQswt4BOARlMIX5EUxfOaJxYSQnNIGrBJajOWSpSWS1XQCuKFWfTVKfDM2FZmOmTUDeQJz9SDAfQJ WlSWRwuq9XJPSfAPJ1TdJ2JVZyJEUrXKIrSXtoZZOe JRT9TVp8ULPjNYVcAY1ZBlAqWAZvUMraDoNaATQyYXQqvn2BHFIbFKV4AWx7ZTHrVQNnKWNvATwyCASl LWF6WMV7CBSaZVMgZC7KSaGbBGBkXEgkJVWdEUSkAEAbfj0BANNeSMJ8ECm3IUCaOCJfKVNkNLkfPPTv ECVbMaNbUQAkEPZvWR4UQsMxWHErTkMhLfDkQFDsWU Pbys2ZKTYoKRJ9GPC8XBJkJYCzBYVeTFf6rmEzaKQlTSd7MM4RO7IuocFzCTHJNy9Kj385MXKuYYMwQo 6XR4hkNm9wUNBtDYEPDi7IRHu5FIHsJwWfS4NuOODpAIwxFVX5WeSwI2NeJuYgBtDtTqM+KTl0N6TxKN E4SwD1YOU3XFAkCNuqEbKxSHLdR5IjXBHoZq6iJL ANCj4+CPtaqBVjoKamGSCBWzJjToWzDZwxXLWILz8P ID Date Data Source [id number] 03/05/2020 02:13:20 PM T [facility] Name Value Range Interpretation Code Description Data Belkys rce(s) Supporting Document(s) Prothrombin time (PT) 14.2 s 12.5-14.9 [facility] INR in Platelet poor plasma by Coagulation assay 1.09 [facility] Routine intensity oral anticoagulation I NR is typically 2.0-3.0. Target INR must be clinically individualized. ID Date Data Source [id number] 03/05/2020 02:36:46 PM [facility] Name Value Range Interpretation Code Description Data Belkys rce(s) Supporting Document(s) Cholesterol [Mass/volume] in Serum or Plasma 200 mg/dL <200 H [facility] Triglyceride [Mass/volume] in Serum or Plasma 91 mg/dL <150 [facility] Cholesterol in HDL [Mass/volume] in Serum or Plasma 55 mg/dL >50 [facility] Cholesterol in LDL [Mass/volume] in Serum or Plasma by calcu lation 127 mg/dL <100 H [facility] Cholesterol in VLDL [Mass/volume] in Serum or Plasma by calc ulation 18 mg/dl 16-42 [facility] Cholesterol non HDL [Mass/volume] in Serum or Plasma 145 mg/dL <130 H [facility] ID Date Data Source [id number] 03/05/2020 02:36:46 PM [facility] Name Value Range Interpretation Code Description Data Belkys rce(s) Supporting Document(s) Troponin T.cardiac [Mass/volume] in Serum or Plasma 0.07 ng/mL <0.01 H [facility] ID Date Data Source [id number] 03/05/2020 02:36:46 PM [facility] Name Value Range Interpretation Code Description Data Belkys rce(s) Supporting Document(s) Thyrotropin [Units/volume] in Serum or Plasma 0.798 u[IU]/mL 0.270-4. 200 [facility] ID Date Data Source [id number] 03/05/2020 07:31:35 AM [facility] MR BRAIN WITHOUT CONTRAST [id number] RES ULTInterpreted by:Jessica Pittman MDCLINICAL INFORMATION: Stroke.COMPARISON: CTA head and neck 03/04/2020. PROCEDURE : Multiple MR sequences in multiple planes without administration of IV contrast.FINDINGS: There are multifocal regions of restricted diffusion within the left thalamus and pulvinar region, right occipital lobe, tiny in the left occipital lobe, right parietal lobe , the periventricular white matter adjacent to the atrium and temporal region and medial left temporal lobe. There is also a large region of restricted diffusion within the left cerebellar hemisphere and a small region of restricted diffusion in the right cerebellar hemisphere. There are scattered foci of susceptibility within the left cerebellar hemisphere, concerning for microhemorrhage conversion. There is associated cytotoxic edema on the FLAIR sequences in relation to the regions of restricted diffusion. Additionally, there are confluent areas of T2/FLAIR hyperintensity in the periventricular, subcortical, and deep white matter most consistent with chronic small vessel ischemic disease.There is generalized cerebral volume loss with commensurate enlargement of the ventricles and sulci. No midline shift or extra-axial fluid collections. The basal cisterns are patent. The T1 bright spot in the posterior pituitary is visualized. The cerebellar tonsils are positioned above the foramen magnum which is patent.The visualized paranasal sinuses and mastoid air cells are clear. The calvarium and extra cranial soft tissues are unremarkable. IMPRESSION: 1. Mu ltifocal regions of restricted diffusion indicating within bilateral cerebellar and the cerebral hemispheres as described above, indicating acute infarcts.2. Susceptibility artifact in the left cerebellar hemisphere concerning for microhemorrhagic conversion.3. Confluent regions of T2/FLAIR hyperintensities consistent with chronic small vessel ischemic disease.Findings were discussed with Gina Warner by Dr. Jac Byrd via phone on 03/05/2020 5:29 AM.This document has been electronically signed by HI Pittman on 03/05/2020 7:29 AM Name Value Range Interpretation Code Description Data Belkys rce(s) Supporting Document(s) ID Date Data Source [id number] 03/05/2020 05:20:46 AM [facility] Name Value Range Interpretation Code Description Data [facility] rce(s) Supporting Document(s) Leukocytes [#/volume] in Blood by Automated count 6.3 10*3/uL 4-10 [facility] Erythrocytes [#/volume] in Blood by Automated count 4.26 10*6/uL 4.1- 5.3 [facility] Hemoglobin [Mass/volume] in Blood 12.9 g/dL 11.5-15.5 [facility] Hematocrit [Volume Fraction] of Blood by Automated count 39.4 % 3 6-45 [facility] Erythrocyte mean corpuscular volume [Entitic volume] by Auto mated count 92.5 fL 80-96 [facility] Erythrocyte mean corpuscular hemoglobin [Entitic mass] by Automated count 30.4 pg 27-33 [facility] Erythrocyte mean corpuscular hemoglobin concentration [Mass/volume] by Automated count 32.8 g/dL 32.0-36.0 [facility] E[facility]throcyte distribution width [Ratio] by Automated count 14.4 % 11.5-14.5 [facility] Platelets [#/volume] in Blood by Automated count 185 10*3/uL 150-400 [facility] Differential cell count method - Blood [facility] Neutrophils/100 leukocytes in Blood by Automated count 67 % [facility] Lymphocytes/100 leukocytes in Blood by Automated count 19 % [facility] Monocytes/100 leukocytes in Blood by Automated count 12 % [facility] Eosinophils/100 leukocytes in Blood by Automated count 1 % [facility] Basophils/100 leukocytes in Blood by Automated count 1 % [facility] Neutrophils [#/volume] in Blood by Automated count 4.19 10*3/uL 1.8-7 .0 [facility] Lymphocytes [#/volume] in Blood by Automated count 1.20 10*3/uL 1.2-4 .0 [facility] Monocytes [#/volume] in Blood by Automated count 0.73 10*3/uL 0-0.8 [facility] Eosinophils [#/volume] in Blood by Automated count 0.09 10*3/uL 0-0.5 [facility] Basophils [#/volume] in Blood by Automated count 0.06 10*3/uL 0-0.2 [facility] Nucleated erythrocytes/100 leukocytes [Ratio] in Blood by Automated count 0 /100{WBCs} 0-0 [facility] ID Date Data Source [id number] 03/05/2020 05:43:43 AM EDT [facility] Name Value Range Interpretation Code Description Data Belkys rce(s) Supporting Document(s) Bicarbonate [Moles/volume] in Serum 30 mmol/L 22-29 H [facility] Chloride [Moles/volume] in Serum or Plasma 99 mmol/L 98-107 [facility] Creatinine [Mass/volume] in Serum or Plasma 0.77 mg/dL 0.50-0.90 [facility] Glucose [Mass/volume] in Serum or Plasma 78 mg/dL 70-140 [facility] Potassium [Moles/volume] in Serum or Plasma 3.6 mmol/L 3.4-5.1 [facility] Sodium [Moles/volume] in Serum or Plasma 139 mmol/L 136-145 [facility] Urea nitrogen [Mass/volume] in Serum or Plasma 10 mg/dL 8-23 [facility] Anion gap 3 in Serum or Plasma 10 mmol/L 8-15 [facility] Osmolality of Serum or Plasma by calculation 285 mosm/kg 275-300 [facility] Creatinine/Urea nitrogen [Mass Ratio] in Serum or Plasma 13 [facility] Calcium [Mass/volume] in Serum or Plasma 8.8 mg/dL 8.8-10.2 [facility] Glomerular filtration rate/1.73 sq M pre dicted among non-blacks [Volume Rate/Area] in Serum or Plasma by Creatinine-based formula (MDRD) >6 0 [facility] Glomerular filtration rate/1.73 sq M pre dicted among blacks [Volume Rate/Area] in Serum or Plasma by Creatinine-based formula (MDRD) >60 [facility] ID Date Data Source [id number] 03/05/2020 02:27:46 PM EDT [facility] Name Value Range Interpretation Code Description Data Belkys rce(s) Supporting Document(s) Troponin T.cardiac [Mass/volume] in Serum or Plasma 0.06 ng/mL <0.01 H [facility] ID Date Data Source [id number] 03/04/2020 07:34:10 PM EDT [facility] Name Value Range Interpretation Code Description Data Belkys rce(s) Supporting Document(s) History and Physical [facility] HPNZQh3zCtENGqCw50/LDEotDPLtu5VlZNyeHRw7ZLpqEPKuW6OeXCZ1aF3uKWC8PYyRSxKoKvDxEFBo lbm [file] 2x116G35v297GnJgT/[employer]++H7QSQ7WZQb6GySA+xvug [file] [id number]+USaaxGXvmAvnEMYRTpQ9BkT5JKtyUQBDBz3N ID Date Data Source [id number] 03/04/2020 03:11:07 PM EDT [facility] Name Value Range Interpretation Code Description Data Belkys e(s) Supporting Document(s) Bicarbonate [Moles/volume] in Serum 29 mmol/L 22-29 [facility] Chloride [Moles/volume] in Serum or Plasma 99 mmol/L 98-107 [facility] Creatinine [Mass/volume] in Serum or Plasma 0.90 mg/dL 0.50-0.90 [facility] Glucose [Mass/volume] in Serum or Plasma 99 mg/dL 70-140 [facility] Potassium [Moles/volume] in Serum or Plasma 3.9 mmol/L 3.4-5.1 [facility] Hemolyzed Sodium [Moles/volume] in Serum or Plasma 135 mmol/L 136-145 L [facility] Urea nitrogen [Mass/volume] in Serum or Plasma 15 mg/dL 8-23 [facility] Anion gap 3 in Serum or Plasma 8 mmol/L 8-15 [facility] Osmolality of Serum or Plasma by calculation 281 mosm/kg 275-300 [facility] Creatinine/Urea nitrogen [Mass Ratio] in Serum or Plasma 17 [facility] Calcium [Mass/volume] in Serum or Plasma 8.6 mg/dL 8.8-10.2 L [facility] QA FLAGS AND/OR RANGES MODIFIED BY DEMOG RAPHIC UPDATE ON 03/04 AT 1905 Glomerular filtration rate/1.73 sq M pre dicted among non-blacks [Volume Rate/Area] in Serum or Plasma by Creatinine-based formula (MDRD) >6 0 [facility] Glomerular filtration rate/1.73 sq M pre dicted among blacks [Volume Rate/Area] in Serum or Plasma by Creatinine-based formula (MDRD) >60 [facility] ID Date Data Source [id number] 03/04/2020 03:11:07 PM EDT [facility] Name Value Range Interpretation Code Description Data Belkys rce(s) Supporting Document(s) Magnesium [Mass/volume] in Serum or Plasma 1.9 mg/dL 1.6-2.4 [facility] QA FLAGS AND/OR RANGES MODIFIED BY DEM RAPHIC UPDATE ON 03/04 AT 1905 ID Date Data Source [id number] 02/03/2020 02:25:00 PM EDT [facility] ([facility], ) Name Value Range Interpretation Code Description Data Belkys rce(s) Supporting Document(s) PDFReport Laboratory test result [facility] ([facility] ) FVC-Pred 1.76 L [facility] ([facility]) FVC-LLN 1.16 L [facility] ([facility]) FVC-Pre 1.82 L [facility] ([facility]) FVC-%Pred-Pre 103 L [facility] ([facility]) Fev1-Pred 1.28 L [facility] ([facility]) Fev1-%Pred-Pre 66 L [facility] ([facility]) Fev1-Pre 0.85 L [facility] ([facility]) Fev6-%Pred-Pre 102 L [facility] ([facility]) Fev1-LLN 0.77 L [facility] ([facility]) Fev6-Pred 1.63 L [facility] ([facility]) Fev6-Pre 1.68 L [facility] ([facility]) Qkf6gbt-Umgi 72 % [facility] ([facility]) Dfw4ayp-Svb 46 % [facility] ([facility]) Fev6-LLN 1.04 L [facility] ([facility]) Vxj5wsp-%Pred-Pre 64 % [facility] ([facility]) Btl5uvz-MEF 62 % [facility] ([facility]) Qdb7jcn-Hyb 92 % [facility] ([facility]) Zws5aad-Xvgq 93 % [facility] ([facility]) FEFMax-%Pred-Pre 52 L/E/sec [facility] ([facility]) FEFMax-Pred 3.40 L/E/sec [facility] ([facility]) Mke2wgr-%Pred-Pre 99 % [facility] ([facility]) FEFMax-Pre 1.77 L/E/sec [facility] ([facility]) Ubv8037-Rvo 0.31 L/E/sec [facility] ([facility]) FEFMax-LLN 1.92 L/E/sec [facility] ([facility]) Exr5958-Wvmh 0.79 L/E/sec [facility] ([facility]) ExpTime-Pre 8.87 sec [facility] ([facility]) Jse5667-%Pred-Pre 39 L/E/sec [facility] ([facility]) Qug5602-DDC -0.28 L/E/sec [facility] ([facility]) Uqo7nhp0-Vfin 77 % [facility] ([facility]) Oiw6guw2-Cpu 50 % [facility] ([facility]) Cma8dzo5-QZT 68 % [facility] ([facility]) Apu9rpc9-%Pred-Pre 65 % [facility] ([facility]) ID Date Data Source [id number] 01/02/2020 03:42:00 PM EDT [facility] ([facility]) Name Value Range Interpretation Code Description Data Belkys rce(s) Supporting Document(s) White Blood Count 5.6 4.0-10.0 [facility]) Hemoglobin 12.8 [facility] ([facility]) Red Blood Count 4.34 4.00-5.40 [facility] ([facility]) Platelets 280 150-450 [facility] Hematocrit 41.5 [facility] ([facility]) ID Date Data Source [id number] 01/02/2020 10:22:00 AM EDT [facility] ([facility]) Name Value Range Interpretation Code Description Data Belkys rce(s) Supporting Document(s) Magnesium [Mass/volume] in Serum or Plasma 2.1 mg/dL 1.8-2.4 [facility] ([facility]) ID Date Data Source [id number] 01/02/2020 10:22:00 AM EDT [facility] ([facility]) Name Value Range Interpretation Code Description Data Belkys rce(s) Supporting Document(s) Blood Urea Nitrogen 13 mg/dL 7-18 [facility] ([facility]) Glucose, Fasting 84 mg/dL 70-100 [facility] ([facility]) Glomerular Filtration Rate Laboratory test result [facility] ([facility]) <content>Units are mL/min/1.73 m2</content>
<content></content>
<content>Chronic Kidney Disease Staging per NKF:</content>
<content></content>
<content>Stage I & II GFR >=60 Normal to Mildly Decreased</content>
<content>Stage III GFR 30- 59 Moderately Decreased</content>
<content>Stage IV GFR 15-29 Severely Decreased</content>
<content>Stage V GFR <15 Very Little GFR Left</content>
<content>ESRD GFR <15 on [employer]</content>
<content></content> Creatinine For GFR 0.90 mg/dL 0.55-1.30 [facility] ([facility]) Sodium Level 142 meq/L 136-145 [facility] ([facility]) Carbon Dioxide Level 31 meq/L 21-32 [facility] ([facility]) Potassium Serum 4.5 meq/L 3.5-5.1 [facility] ([facility]) Chloride Level 105 meq/L 98-107 [facility] ([facility]) Anion Gap 6 meq/L 8-16 [facility] ([facility]) Calcium Level 9.2 mg/dL 8.8-10.2 [facility] ([facility]) ID Date Data Source [id number] 12/30/2019 10:38:00 AM EDT [facility] ([facility]) Name Value Range Interpretation Code Description Data Belkys rce(s) Supporting Document(s) FVC-Pre 2.03 L [facility] ([facility]) FVC-Pred 1.81 L [facility] ([facility]) FVC-%Pred-Pre 112 L [facility] ([facility]) PDFReport Laboratory test result [facility] ([facility]) Fev1-Pred 1.31 L [facility] ([facility]) Fev1-Pre 1.00 L [facility] ([facility]) FVC-LLN 1.21 L [facility] ([facility]) Fev1-LLN 0.81 L [facility] ([facility]) Fev1-%Pred-Pre 76 L [facility] ([facility]) Fev6-Pred 1.68 L [facility] ([facility]) Fev6-Pre 1.98 L [facility] ([facility]) Vjk3aos-Dnl 49 % [facility] ([facility]) Hhq8evu-Qted 73 % [facility] ([facility]) Fev6-%Pred-Pre 117 L [facility] ([facility]) Fev6-LLN 1.09 L [facility] ([facility]) Xuh8swq-%Pred-Pre 67 % [facility] ([facility]) Qdl9xqi-Ijon 93 % [facility] ([facility]) Zqm4oio-BKL 63 % [facility] ([facility]) FEFMax-Pred 3.51 L/E/sec [facility] ([facility], ) Nvz4umo-Jqa 97 % [facility] ([facility]) FEFMax-Pre 2.03 L/E/sec [facility] ([facility]) Kfk4aek-%Pred-Pre 105 % [facility] ([facility]) FEFMax-%Pred-Pre 57 L/E/sec [facility] ([facility]) FEFMax-LLN 2.03 L/E/sec [facility] ([facility]) Ujr7415-Nylp 0.85 L/E/sec [facility] ([facility]) Pkj9115-Seg 0.41 L/E/sec [facility] ([facility]) ExpTime-Pre 6.86 sec [facility] ([facility]) Wvb5854-OJV -0.23 L/E/sec [facility] ([facility]) Zdo4480-%Pred-Pre 48 L/E/sec [facility] ([facility]) Zux7ymt8-Idz 51 % [facility] ([facility]) Kxv0nxe8-%Pred-Pre 66 % [facility] ([facility]) Bpq7ocu1-Garq 77 % [facility] ([facility]) Dsu9vnq5-LBH 68 % [facility] ([facility]) ID Date Data Source [id number] 10/24/2019 12:56:00 PM EDT [facility] Name Value Range Interpretation Code Description Data Belkys rce(s) Supporting Document(s) Thyrotropin [Units/volume] in Serum or Plasma 0.296 [facility] ([facility]) ID Date Data Source [id number] 10/24/2019 12:56:00 PM EDT [facility] Name Value Range Interpretation Code Description Data Belkys rce(s) Supporting Document(s) Troponin 0.03 [facility] ([facility]) ID Date Data Source [id number] 10/24/2019 12:56:00 PM EDT [facility] Name Value Range Interpretation Code Description Data Belkys rce(s) Supporting Document(s) Creatine kinase [Enzymatic activity/volume] in Serum or Plasma 105 [facility] ([facility] CPK-MB 4.5 [facility] ([facility]) MB/CK Relative 4.29 [facility] ([facility]) ID Date Data Source [id number] 10/24/2019 12:56:00 PM EDT [facility] ([facility]) Name Value Range Interpretation Code Description Data Belkys rce(s) Supporting Document(s) Albumin [Mass/volume] in Serum or Plasma 3.2 [facility] ([facility]) Calcium [Mass/volume] in Serum or Plasma 8.9 [facility] ([facility]) Alanine aminotransferase [Enzymatic activity/volume] in Serum or Pl asma 18 [facility] ([facility]) Alkaline phosphatase [Enzymatic activity/volume] in Serum or Plasma 9 6 [facility] ([facility]) Carbon dioxide, total [Moles/volume] in Serum or Plasma 26 [facility]) Chloride [Moles/volume] in Serum or Plasma 108 [facility]) Sodium 138 [facility] ([facility]) Protein [Mass/volume] in Serum or Plasma 6.9 [facility] ([facility]) Potassium [Moles/volume] in Serum or Plasma 3.9 [facility] ([facility]) Urea nitrogen [Mass/volume] in Serum or Plasma 21 [facility]) Aspartate aminotransferase [Enzymatic activity/volume] in Serum or Plasma 21 [facility] ([facility]) Glucose 128 70-100 [facility] ([facility]) Creatinine For GFR 1.14 [facility] ([facility]) ID Date Data Source [id number] 10/24/2019 12:56:00 PM EDT [facility] ([facility]) Name Value Range Interpretation Code Description Data Belkys rce(s) Supporting Document(s) Red Blood Count 4.50 4.00-5.40 [facility] ([facility]) Platelets 215 150-450 [facility] ([facility]) White Blood Count 6.6 4.0-10.0 [facility] ([facility]) Hematocrit 41.5 [facility] ([facility]) Hemoglobin 13.3 [facility] ([facility]) ID Date Data Source [id number] 07/09/2019 12:37:00 PM EST [facility] OFFICE MR ANGIOGRAM HEAD WITHOUT CONTRAST CLINICAL STATEMENT: Cerebral aneurysm, nonruptured. TECHNIQUE: MR angiogram of the head was performed, without intravenous contrast, utilizing 3-D time of flight technique. COMPARISON: 06/25/2018. 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 Two additional small vascular protrusions are again seen along the distal M1 segment of the left middle cerebral artery and/or MCA bifurcation, each measuring approximately 2 mm, compatible with small aneurysms. No new cerebral aneurysm is seen. Bilateral intracranial internal carotid arteries, middle and anterior cerebral arteries are patent. The intradural vertebral arteries, basilar artery and bilateral posterior cerebral arteries are patent. There is no evidence of large vessel occlusion or hemodynamically significant stenosis. IMPRESSION: Since 06/25/2018, No significant interval change. 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 Two additional small vascular protrusions along the distal M1 segment of the left MCA and/or MCA bifurcation, each measuring approximately 2 mm, compatible with small aneurysms. Professional interpretation performed at [facility] . Name Value Range Interpretation Code Description Data Belkys rce(s) Supporting Document(s) ID Date Data Source [id number] 06/09/2019 12:00:00 AM EST [facility] Melissa Ann MD Patient Name:[id number] Date of : [address] [address] Date of Exam: 06/09/2019PH#: Fax: [phone] EXAM: CHEST (2 VIEW) X-RAYCLINICAL INFORMATION: History of COPD.Two views.Comparison 07/31/17, the latest priors.There is lung field hyperexpansion, status quo. The cardiomediastinalsilhouette is unchanged. The heart is not enlarged. Scattered interstitialfibrotic changes with scattered parenchymal bulla and suspected pleuralblebs, status quo. No acute patchy parenchymal opacities or pleuraleffusions have developed. There is no significant in the osseousstructures.IMPRESSION:Stable appearing chronic changes as described above.ESDRAS Freed/Nikole you for referring RILEY NYE to our office. Electronically Signed - JANELL NETTLES DO 06/09/19 15:02 Name Value Range Interpretation Code Description Data Belkys rce(s) Supporting Document(s) Procedure Social History Code Duration Value Status Description Data Source(s ) Smoking 05/06/2020 12:00:00 AM EDT Patient is a former smoker completed Patient is a former smoker [facility] ([facility] Alcohol intake 03/08/2020 12:00:00 AM EDT Ex-drinker (finding) comp leted Ex- drinker (finding) [facility] Tobacco use and exposure 03/08/2020 12:00:00 AM EDT Never used co mpleted Never used [facility] Cigarette pack-years 03/08/2020 12:00:00 AM EDT [facility] Cigarettes smoked current (pack per day) - Reported 03/08/20 20 12:00:00 AM EDT [facility] Smoking 03/08/2020 12:00:00 AM EDT Former smoker completed Former smoker [facility] Smoking 02/03/2020 12:00:00 AM EDT Patient is a former smoker completed Patient is a former smoker [place] [facility] Vital Signs ID Date Data Source UNK Name Value Range Interpretation Code Description Data Source(s) Diastolic blood pressure 72 mm[Hg] 72 mm[Hg] [facility] sitting Systolic blood pressure 132 mm[Hg] 132 mm[Hg] [facility] sitting Diastolic blood pressure 72 mm[Hg] 72 mm[Hg] [facility] ([facility]) sitting, small cuff Systolic blood pressure 128 mm[Hg] 128 mm[Hg] [facility] sitting, small cuff Respiratory rate 16 /min 16 /min [facility] ( [facility]) Heart rate 96 /min 96 /min [facility]) Irregular Body mass index (BMI) [Ratio] 16.8 kg/m2 16.8 k g/m2 [facility] ([facility]) Body height 62 [in_i] 62 [in_i] [facility] ([facility]) 5'2" Body weight 92.00 [lb_av] 92.00 [lb_av] [facility] ([facility]) Body weight 39.917 kg 39.917 kg [facility] ([facility]) Body mass index (BMI) [Ratio] 17.5 kg/m2 17.5 k g/m2 [facility] ([facility]) Body weight 88.00 [lb_av] 88.00 [lb_av] [facility] ([facility]) Body height 59.5 [in_i] 59.5 [in_i] [facility] ([facility], ) 4'11.50" Body temperature 98.2 [degF] 98.2 [degF] [facility] ([facility]) Oxygen saturation in Arterial blood by Pulse oximetry 90 % 90 % [facility] ([facility]) Room Air Heart rate 54 /min 54 /min [facility] ([facility]) Diastolic blood pressure 68 mm[Hg] 68 mm[Hg] [facility] ([facility]) Systolic blood pressure 118 mm[Hg] 118 mm[Hg] M [facility] Diastolic blood pressure 78 mm[Hg] 78 mm[Hg] [facility] ([facility]) sitting, regular cuff Systolic blood pressure 132 mm[Hg] 132 mm[Hg] M [facility] ([facility]) sitting, regular cuff Respiratory rate 16 /min 16 /min [facility] ( [facility]) Heart rate 56 /min 56 /min [facility] ([facility]) Regular Body mass index (BMI) [Ratio] 16.1 kg/m2 16.1 k g/m2 [facility] ([facility]) Body height 62 [in_i] 62 [in_i] [facility] ([facility]) 5'2" Body weight 88.00 [lb_av] 88.00 [lb_av] [facility] ([facility]) Body weight 40.370 kg 40.370 kg [facility] ([facility]) Body mass index (BMI) [Ratio] 17.7 kg/m2 17.7 k g/m2 [facility] ([facility]) Body weight 89.00 [lb_av] 89.00 [lb_av] [facility] ([facility]) Body height 59.5 [in_i] 59.5 [in_i] [facility] ([facility]) 4'11.50" Body temperature 98.4 [degF] 98.4 [degF] [facility] ([facility]) Oxygen saturation in Arterial blood by Pulse oximetry 91 % 91 % [facility] ([facility]) Heart rate 70 /min 70 /min [facility] ([facility]) Diastolic blood pressure 82 mm[Hg] 82 mm[Hg] [facility] ([facility]) Systolic blood pressure 106 mm[Hg] 106 mm[Hg] M [facility] Respiratory rate 16 /min 16 /min [facility] ( [facility]) Heart rate 56 /min 56 /min [facility] ([facility]) Regular Body mass index (BMI) [Ratio] 17.2 kg/m2 17.2 k g/m2 [facility] ([facility]) Body height 62 [in_i] 62 [in_i] [facility] ([facility]) 5'2" Body weight 94.00 [lb_av] 94.00 [lb_av] [facility] ([facility]) Diastolic blood pressure 80 mm[Hg] 80 mm[Hg] [facility] ([facility]) sitting Systolic blood pressure 160 mm[Hg] 160 mm[Hg] M EDENT ([facility]) sitting Diastolic blood pressure 80 mm[Hg] 80 mm[Hg] [facility] ([facility]) sitting, regular cuff Systolic blood pressure 164 mm[Hg] 164 mm[Hg] M EDENT ([facility]) sitting, regular cuff Diastolic blood pressure 64 mm[Hg] 64 mm[Hg] eCW1 ([facility]) Systolic blood pressure 130 mm[Hg] 130 mm[Hg] e CW1 ([facility]) Body temperature 97.1 [degF] 97.1 [degF] eCW1 ( [facility]) Respiratory rate 18 /min 18 /min eCW1 ([facility]) Heart rate 96 /min 96 /min eCW1 ([facility] Body mass index (BMI) [Ratio] 17.56 kg/m2 17.56 kg/m2 eCW1 ([facility]) Body height [in_us] eCW1 ([facility]) Body weight Measured 96 [lb_av] 96 [lb_av] eCW1 ([facility]) Oxygen saturation in Arterial blood by Pulse oximetry 91 % 91 % [facility] ) Heart rate 74 /min 74 /min [facility] ([facility], ) Diastolic blood pressure 82 mm[Hg] 82 mm[Hg] [facility] ([facility], ) Systolic blood pressure 120 mm[Hg] 120 mm[Hg] M [facility] Body weight 42.185 kg 42.185 kg [facility] ([facility], ) Body mass index (BMI) [Ratio] 18.5 kg/m2 18.5 k g/m2 [facility] ([facility], ) Body weight 93.00 [lb_av] 93.00 [lb_av] [facility] ([facility], ) Body height 59.5 [in_i] 59.5 [in_i] [place] ([facility], ) 4'11.50" ID Date Data Source [id number] 04/01/2020 09:59:22 AM [facility] Name Value Range Interpretation Code Description Data Source(s) WEIGHT RECORDED 88.7 lb 88.7 lb [facility] WEIGHT RECORDED 90.1 lb 90.1 lb [facility] WEIGHT RECORDED 88.8 lb 88.8 lb [facility] ID Date Data Source [id number] 03/18/2020 03:24:14 PM [facility] Name Value Range Interpretation Code Description Data Source(s) WEIGHT RECORDED 92.15 lb 92.15 lb [facility] Body height Measured 60 in 60 in [facility] Patient Treatment Plan of Care Planned Activity Planned Date Details Description Data Source (s) Cholecalciferol 1000 UNT Oral Tablet 03/23/2020 12:00:00 AM [facility] Ascorbic Acid 60 MG / Beta Carotene 5000 UNT / Copper Sulfate 40 MG / dl-alpha tocopheryl acetate 30 UNT / Sodium Selenite 0.04 MG / Zinc Oxide 40 MG Oral Tablet 03/23/2020 12:00:00 AM Health system pantoprazole 40 MG Delayed Release Oral Tablet 03/23/2020 12:00:00 AM [facility] Lisinopril 10 MG Oral Tablet 03/23/2020 12:00:00 AM [facility] Nystatin 109219 UNT/ML Oral Suspension 03/22/2020 12:00:00 AM [facility] Metoprolol Tartrate 25 MG Oral Tablet 03/22/2020 12:00:00 AM [facility] Melatonin 5 MG Oral Tablet 03/22/2020 12:00:00 AM [facility] atorvastatin 80 MG Oral Tablet 03/22/2020 12:00:00 AM [facility] Acetaminophen 325 MG Oral Tablet 03/22/2020 12:00:00 AM [facility] apixaban 2.5 MG Oral Tablet 03/22/2020 12:00:00 AM [facility] Hydralazine Hydrochloride 10 MG Oral Tablet 03/08/2020 03:19:24 PM [facility] albuterol (PROVENTIL HFA) inhaler 2 puff 03/08/2020 02:40:40 PM EDT [facility] Bisacodyl 5 MG Delayed Release Oral Tablet 03/08/2020 01:18:47 PM E DT [facility] Ascorbic Acid 60 MG / Beta Carotene 5000 UNT / Copper Sulfate 40 MG / dl-alpha tocopheryl acetate 30 UNT / Sodium Selenite 0.04 MG / Zinc Oxide 40 MG Oral Tablet 03/08/2020 12:00:00 AM EDT [facility] Metoprolol Tartrate 25 MG Oral Tablet 03/08/2020 12:00:00 AM EDT [facility] atorvastatin 80 MG Oral Tablet 03/08/2020 12:00:00 AM T [facility] apixaban 2.5 MG Oral Tablet 03/08/2020 12:00:00 AM [facility] perflutren lipid microspheres ([employer]) injectable thao spension 9.78 mg 03/05/2020 05:34:37 AM EDT [facility] Hydralazine Hydrochloride 20 MG/ML Injectable Solution 03/04/2020 07:17:[address] [facility] Atenolol 25 MG Oral Tablet U [facility] Amlodipine 5 MG Oral Tablet [facility] Lisinopril 20 MG Oral Tablet [facility]
[2020-08-02] MEDS ORDERED: PROT1TAB2 PO (20:14)
[2020-08-02] MEDS ORDERED: MEGE40TA PO (20:14)
[2020-08-02] MEDS ORDERED: MOXI1TAB PO (20:14)
[2020-08-02] MEDS ORDERED: METO25TA4 PO (20:14)
[2020-08-02] MEDS ORDERED: MIRT-62 PO (20:14)
[2020-08-02] MEDS ORDERED: ELIQ2.5T PO (20:14)
[2020-08-02] MEDS ORDERED: CELE10TA PO (20:14)
[2020-08-02] MEDS ORDERED: ATOR80TA59 PO (20:14)
[2020-08-02] MEDS ORDERED: ROPI1TAB3 PO (20:14)
[2020-08-02] MEDS ORDERED: PT COMMENT (20:15)
[2020-08-02] MEDS ORDERED: MIRTAZAPINE 15 MG TAB PO SCH (21:00)
--- NOTE | 2020-08-02 23:30 | HPEPDOC ---
[facility] Medical History & Physical Date of Admission Aug 02, 2020 Date of Service: Aug 02, 2020 History and Physical CHIEF COMPLAINT: falls, confusion HISTORY OF PRESENT ILLNESS: 85 year old female brought in by her daughter for a several month history of gradually worsening confusion and falls. 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 She has been found wandering and confused. Patient was not able to provide any history. PAST MEDICAL HISTORY: Unknown - to clarify with family. Based on meds - possible afib, HTN, DLP, anxiety/depression ALLERGIES: Please see below. REVIEW OF SYSTEMS: Unable to obtain. HOME MEDICATIONS: Please see below. PHYSICAL EXAMINATION: VITAL SIGNS: See below General: NAD, confused, elderly, frail HEENT: NC Lungs: CTA B/L Heart: +S1S2 Abd: soft, NT, +BS LABORATORY DATA: See below. MICROBIOLOGY: Please see below. A/P: 85 female brought in by daughter for several month history of gradually worsening confusion and falls. #confusion - CT head unrevealing - no obvious source of infection - possibly worsening dementia - consider MRI/MRA, neuro c/s #troponinemia - requested ED for additional card marker #afib - a/c with eliquis - rate controlled - continue home meds #HTN - continue home meds #DVT prophylaxis - on eliquis as above Vital Signs Vital Signs Date Time Temp Pulse Resp B/P (MAP) Pulse Ox O2 Delivery O2 Flow Rate FiO2 08/02/20 23:15 92 18 163/114 (130) 97 Room Air 08/02/20 12:34 98.6 2.0 Laboratory Data Labs 24H Laboratory Tests 2 08/02/20 12:23: Anion Gap 7L, Glomerular Filtration Rate 57.8, Calcium Level 9.4, Total Bilirubin 0.7, Direct Bilirubin 0.2, Aspartate Amino Transf (AST/SGOT) 47H, Alanine Aminotransferase (ALT/SGPT) 42, Alkaline Phosphatase 100, Total Creatine Kinase 474H, Creatine Kinase MB 8.8H, Creatine Kinase MB Relative Index 1.86, Troponin I 0.06, Total Protein 6.9, Albumin 3.5, Albumin/Globulin Ratio 1.0L, Thyroid Stimulating Hormone (TSH) 0.215L 08/02/20 12:31: Immature Granulocyte % (Auto) 0.5, Neutrophils (%) (Auto) 75.9H, Lymphocytes (%) (Auto) 13.0L, Monocytes (%) (Auto) 10.5H, Eosinophils (%) (Auto) 0.0, Basophils (%) (Auto) 0.1, Neutrophils # (Auto) 8.4, Lymphocytes # (Auto) 1.5, Monocytes # (Auto) 1.2H, Eosinophils # (Auto) 0.0, Basophils # (Auto) 0.0, Nucleated Red Blood Cells % (auto) 0.0 08/02/20 13:11: Urine Color YELLOW, Urine Appearance HAZY, Urine pH 5.0, Urine Specific [place] 1.018, Urine Protein 3+H, Urine Glucose (UA) NEGATIVE, Urine Ketones NEGATIVE, Urine Blood NEGATIVE, Urine Nitrite NEGATIVE, Urine Bilirubin NEGATIVE, Urine Urobilinogen 0.2, Urine Leukocyte Esterase NEGATIVE, Urine WBC (Auto) 1, Urine RBC (Auto) 2, Urine Hyaline Casts (Auto) 0, Urine Bacteria (Auto) NEGATIVE, Urine Squamous Epithelial Cells 0, Urine Sperm (Auto) 08/02/20 15:05: Lactic Acid Level 1.3 08/02/20 17:03: Coronavirus (COVID-19)(PCR) NEGATIVE, Influenza Type A (RT-PCR) NEGATIVE, Influenza Type B (RT-PCR) NEGATIVE, Respiratory Syncytial Virus (PCR) NEGATIVE CBC/BMP Laboratory Tests 08/02/20 12:23 08/02/20 12:31 Microbiology Microbiology 08/02/20 Blood Culture, Received Pending 08/02/20 Blood Culture, Received Pending Home Medications Scheduled Apixaban (Eliquis) 2.5 Mg Tablet, 2.5 MG PO BID Atorvastatin Calcium (Atorvastatin Calcium) 80 Mg Tablet, 80 MG PO DAILY Citalopram Hydrobromide (Celexa) 10 Mg Tablet, 10 MG PO DAILY Megestrol Acetate (Megestrol Acetate) 40 Mg Tablet, 40 MG PO QID Metoprolol Tartrate (Metoprolol Tartrate) 25 Mg Tablet, 12.5 MG PO BID Pantoprazole Sodium (Protonix) 40 Mg Tablet.dr, 40 MG PO DAILY Ropinirole HCl (Ropinirole HCl) 1 Mg Tablet, 1 MG PO TID Allergies Coded Allergies: niacin (Verified Allergy, Unknown, 10/24/19) A-FIB/CHADSVASC A-FIB History Current/History of A-Fib/PAF?: Yes Current PO Anticoag Therapy: Yes NERY ALCARAZ MD Aug 02, 2020 23:30
[2020-08-02 23:50] VITALS: BP 186/103
[2020-08-03] MEDS: APIXABAN 2.5 MG TAB (ELIQUIS) PO SCH ×3 (00:12→20:09)
[2020-08-03] MEDS: METOPROLOL TART 12.5 MG PER 1/2 TAB PO SCH ×3 (00:13→20:09)
[2020-08-03 02:30] VITALS: BP 161/93
[2020-08-03 06:02] LABS: HEMATOCRIT 38.6 % (36.0-47.0); HEMOGLOBIN 11.4 g/dl (12.0-15.5); MEAN CORPUSCULAR HEMOGLOBIN 28.7 pg (27.0-33.0); MEAN CORPUSCULAR HGB CONC 29.5 g/dl (32.0-36.5); MEAN CORPUSCULAR VOLUME 97.2 fl (80.0-96.0); PLATELET COUNT, AUTOMATED 236 10^3/uL (150-450); RED BLOOD COUNT 3.97 10^6/uL (4.00-5.40); WHITE BLOOD COUNT 8.1 10^3/uL (4.0-10.0)
[2020-08-03 06:29] LABS: ALBUMIN 2.8 GM/DL (3.2-5.2); BILIRUBIN,TOTAL 0.6 MG/DL (0.2-1.0); CALCIUM LEVEL 8.7 MG/DL (8.8-10.2); CREATININE FOR GFR 1.01 MG/DL (0.55-1.30); GLOMERULAR FILTRATION RATE 55.2 (>32); POTASSIUM SERUM 4.2 MEQ/L (3.5-5.1)
[2020-08-03 07:00] VITALS: BP 140/78
--- NOTE | 2020-08-03 07:15 | REP ---
INDICATION: ALTERED MENTAL STATUS COMPARISON: 02/17/2020. TECHNIQUE: PA/Lateral FINDINGS: Lungs: Clear, no infiltrate. There are stable chronic interstitial changes. Metallic clips are seen overlying the upper lung zones. Heart: Normal in size. Mediastinum: Calcification and tortuosity of the thoracic aorta. The mediastinal silhouette is unchanged. Pleural angles: Unremarkable.. Bones and soft tissues: There is degenerative changes of the spine. IMPRESSION: No acute pulmonary disease. Stable chronic findings and moderate cardiomegaly. <Electronically signed by Colton Horvath > 08/02/20 [id number]
[2020-08-03 08:00] VITALS: BP 150/99
--- NOTE | 2020-08-03 08:51 | ECGEPIP ---
[facility] - ED Test Date: 2020-08-02 Pat Name: RILEY NYE Department: Room: - Gender: Female [employer]: JET : 1935 Requested By: ROGER CAMARILLO Order Number: [id number] Reading MD: Susana Ruiz Measurements Intervals [place] Rate: 98 P: HI: 0 QRS: -89 QRSD: 120 T: 69 QT: 374 QTc: 479 Interpretive Statements ATRIAL FIBRILLATION RIGHT BUNDLE BRANCH BLOCK LEFT ANTERIOR FASCICULAR BLOCK INCREASED RATE 05/18/20 Electronically Signed on 08-03-2020 8:50:41 EST by Susana Ruiz
[2020-08-03] MEDS: MEGESTROL 40 MG TAB PO SCH ×4 (10:08→20:10)
[2020-08-03] MEDS: rOPINIRole 1MG TAB PO SCH ×3 (10:08→20:10)
[2020-08-03] MEDS: ATORVASTATIN 20 MG TAB PO SCH (10:08)
[2020-08-03] MEDS: CitaloPRAM (CeleXA) 10 MG TABLET PO SCH (10:08)
[2020-08-03] MEDS: PANTOPRAZOLE 40MG TAB (PROTONIX) PO SCH (10:08)
[2020-08-03] MEDS ORDERED: ACETAMINOPHEN TAB 650MG DOSE (2X325MG) PO PRN (10:15)
[2020-08-03 11:18] LABS: FREE T4 1.36 NG/DL (0.76-1.46)
[2020-08-03 11:29] LABS: TOTAL T3 57.7 NG/DL (60.0-181.0)
[2020-08-03 12:00] VITALS: BP 106/64
[2020-08-03] MEDS ORDERED: ALBUTEROL 90 MCG/ACT 8GM HFA INHALER INH PRN (15:15)
[2020-08-03 16:00] VITALS: BP 107/55
--- NOTE | 2020-08-03 19:13 | IPNPDOC ---
Date Seen The patient was seen on 08/03/20. Progress Note SUBJECTIVE: No acute complaints or events overnight. PT: Pending progression and clarification of PLOF/home setup, recommending rehab vs. home with 12/02. PFS aware and has been in touch with family. Denies chest pain, incr SOB, fevers, chills. OBJECTIVE: PHYSICAL EXAMINATION: VITAL SIGNS: See below General: NAD, confused, elderly, frail, AAOx 3 HEENT: NC/AT Lungs: CTA B/L, no W/R/R Heart: +S1S2, no M/R/G GI: soft, NT, +BS in 4 quad EXT: thin, no cyanosis clubbing or edema NEURO: No focal deficits, CN 2-12 intact. No sensory or motor issues PSYCH: Mood and affect wnl LABORATORY DATA: See below. MICROBIOLOGY: Please see below. ASSESSMENT: 85 female brought in by daughter for several month history of gradually worsening confusion and falls. PLAN: #Worsening confusion likely 2/2 to age related memory loss vs. mild dementia -Depends on family for most of her activities of daily living, fall risk -CT head unrevealing -No infection -Cooperative, following commands but may need directing at times -Optimize nutrition with full nutritional consult today #Physical deconditioning, acute on chronic s/p fall -PT: Pending progression and clarification of PLOF/home setup, recommending rehab vs. home with 12/02 -Discussed with PFS today, they are discussing with family options to go home and SNF from community -Continue with services while here. #Abnormal thyroid studies, ? secondary hypothyroidism -TSH low at 0.215, T3 low -This is unlikely causing dementia -Would recommend repeat labs in 4-6 weeks #Atrial fibrillation, rate controlled and chronic -C/w all home meds, AC #HTN - continue home meds #COPD/RLL resection -Uses O2 at home if needed -Currently on 1.5 L NC -No increased SOB, coughing, chest pain #DVT prophylaxis - Eliquis DISPOSITION: PT/OT above, will need home services if plan is for her to return. Discussed with family who is trying to get her home and possibly SNF from community. VS, I&O, 24H, Fishbone Vital Signs/I&O Vital Signs Date Time Temp Pulse Resp B/P (MAP) Pulse Ox O2 Delivery O2 Flow Rate FiO2 08/03/20 16:00 97.8 84 20 107/55 (72) 92 Nasal Cannula 1.5 I&O- Last 24 Hours up to 6 AM 08/03/20 05:59 Intake Total 0 ml Output Total 300 ml Balance -300 ml Laboratory Data 24H LABS Laboratory Tests 2 08/03/20 05:42: Nucleated Red Blood Cells % (auto) 0.0, Anion Gap 5L, Glomerular Filtration Rate 55.2, Calcium Level 8.7L, Total Bilirubin 0.6, Aspartate Amino Transf (AST/SGOT) 37, Alanine Aminotransferase (ALT/SGPT) 37, Alkaline Phosphatase 92, Total Protein 6.0L, Albumin 2.8L, Albumin/Globulin Ratio 0.9L, Free Thyroxine 1.36, Total Triiodothyronine 57.7L CBC/BMP Laboratory Tests 08/03/20 05:42 Microbiology Microbiology 08/02/20 Blood Culture - Preliminary, Resulted No growth after 24 hours . All specim... 08/02/20 Blood Culture - Preliminary, Resulted No growth after 24 hours . All specim... Amelia Boland MD Aug 03, 2020 19:13
[2020-08-03 20:00] VITALS: BP 120/61
[2020-08-04 04:00] VITALS: BP 140/83
[2020-08-04] MEDS ORDERED: METOCLOPRAMIDE INJ 10MG/2ML VIAL (J2765 PER 1) IV PRN (05:15)
[2020-08-04 05:49] LABS: HEMATOCRIT 38.3 % (36.0-47.0); HEMOGLOBIN 11.3 g/dl (12.0-15.5); MEAN CORPUSCULAR HEMOGLOBIN 28.7 pg (27.0-33.0); MEAN CORPUSCULAR HGB CONC 29.5 g/dl (32.0-36.5); MEAN CORPUSCULAR VOLUME 97.2 fl (80.0-96.0); PLATELET COUNT, AUTOMATED 234 10^3/uL (150-450); RED BLOOD COUNT 3.94 10^6/uL (4.00-5.40); WHITE BLOOD COUNT 9.7 10^3/uL (4.0-10.0)
[2020-08-04 06:00] VITALS: BP 158/86
[2020-08-04 06:16] LABS: CALCIUM LEVEL 8.6 MG/DL (8.8-10.2); CREATININE FOR GFR 0.97 MG/DL (0.55-1.30); GLOMERULAR FILTRATION RATE 57.8 (>32); POTASSIUM SERUM 3.8 MEQ/L (3.5-5.1)
[2020-08-04] MEDS: rOPINIRole 1MG TAB PO SCH ×3 (09:00→20:44)
[2020-08-04] MEDS: MEGESTROL 40 MG TAB PO SCH ×4 (09:00→20:44)
[2020-08-04] MEDS: ATORVASTATIN 20 MG TAB PO SCH (09:00)
[2020-08-04] MEDS: METOPROLOL TART 12.5 MG PER 1/2 TAB PO SCH ×2 (09:00→20:43)
[2020-08-04] MEDS: APIXABAN 2.5 MG TAB (ELIQUIS) PO SCH ×2 (09:00→20:43)
[2020-08-04] MEDS: CitaloPRAM (CeleXA) 10 MG TABLET PO SCH (09:00)
[2020-08-04] MEDS: PANTOPRAZOLE 40MG TAB (PROTONIX) PO SCH (09:00)
--- NOTE | 2020-08-04 17:38 | IPNPDOC ---
Date Seen The patient was seen on 08/04/20. Progress Note SUBJECTIVE: Confused this AM, believed someone "snatched her out of [facility]". Could not clarify where she was, could tell me her name. Will need SNF prior to d/c so not discharging today as planned with family. No acute events overnight. OBJECTIVE: PHYSICAL EXAMINATION: VITAL SIGNS: See below General: NAD, confused, elderly, frail, AAOx 2 HEENT: NC/AT Lungs: CTA B/L, no W/R/R Heart: +S1S2, no M/R/G GI: soft, NT, +BS in 4 quad EXT: thin, no cyanosis clubbing or edema NEURO: No focal deficits, CN 2-12 intact. No sensory or motor issues PSYCH: Angry this AM LABORATORY DATA: See below. MICROBIOLOGY: Please see below. ASSESSMENT: 85 female brought in by daughter for several month history of gradually worsening confusion and falls. PLAN: #Worsening confusion likely 2/2 to age related memory loss vs. mild dementia -Degree waxes and wanes, today more confused than 08/03/20 -Depends on family for most of her activities of daily living, fall risk -CT head unrevealing -No infection -Cooperative, following commands but may need directing at times -Optimize nutrition with full nutritional consult today -Plan is placement to SNF as family cannot care for her 12/02 #Physical deconditioning, acute on chronic s/p fall -PT: Pending progression and clarification of PLOF/home setup, recommending rehab vs. home with 12/02 -Discussed with PFS today, they are discussing with family options to go home and SNF from community -Continue with services while here. #Chronic protein malnutrition -BMI 15.9, goal to improvement is 18 -Nutrition assessed: Ensure BID, incr protein and calorie intake #Abnormal thyroid studies, ? secondary hypothyroidism -TSH low at 0.215, T3 low -This is unlikely causing dementia -Would recommend repeat labs in 4-6 weeks #Atrial fibrillation, rate controlled and chronic -C/w all home meds, AC #HTN - continue home meds #COPD/RLL resection -Uses O2 at home if needed -Currently on 1.5 L NC -No increased SOB, coughing, chest pain #DVT prophylaxis - Eliquis DISPOSITION: Plan is SNF as family cannot care for her 12/02. PFS involved. Making ALC status today. VS, I&O, 24H, Fishbone Vital Signs/I&O Vital Signs Date Time Temp Pulse Resp B/P (MAP) Pulse Ox O2 Delivery O2 Flow Rate FiO2 08/04/20 06:00 98.9 91 18 158/86 (110) 95 Nasal Cannula 1.0 I&O- Last 24 Hours up to 6 AM 08/04/20 06:00 Intake Total 540 ml Output Total 900 ml Balance -360 ml Laboratory Data 24H LABS Laboratory Tests 2 08/04/20 05:26: Nucleated Red Blood Cells % (auto) 0.0, Anion Gap 5L, Glomerular Filtration Rate 57.8, Calcium Level 8.6L CBC/BMP Laboratory Tests 08/04/20 05:26 Microbiology Microbiology 08/02/20 Blood Culture - Preliminary, Resulted No Growth after 48 hours. All Specime... 08/02/20 Blood Culture - Preliminary, Resulted No Growth after 48 hours. All Specime... Current Medications Current Medications Medications (Trade) Dose Ordered Sig/Kasi Route PRN Reason Start Time Stop Time Status Last Admin Dose Admin Acetaminophen (Tylenol Tab) 650 mg Q6HP PRN PO PAIN / FEVER 08/03/20 10:15 Albuterol Sulfate (Proventil, Ventolin Hfa) 2 puff Q6HP PRN INH SHORTNESS OF BREATH 08/03/20 15:15 Apixaban (Eliquis) 2.5 mg BID PO 08/02/20 21:00 08/03/20 20:09 Atorvastatin Calcium (Lipitor) 80 mg DAILY PO 08/03/20 09:00 08/03/20 10:08 Citalopram Hydrobromide (CeleXA) 10 mg DAILY PO 08/03/20 09:00 08/03/20 10:08 Home Med (Med Rec Complete!) ASDIRECTED XX 08/02/20 20:15 08/02/20 20:16 DC Megestrol Acetate (Megace) 40 mg QID PO 08/03/20 09:00 08/04/20 17:24 Metoclopramide HCl (REGLAN INJection) 5 mg Q6HP PRN IV NAUSEA OR VOMITING 08/04/20 05:15 Metoprolol Tartrate (Lopressor) 12.5 mg BID PO 08/02/20 21:00 08/03/20 20:09 Mirtazapine (Remeron) 15 mg QHS PO 08/02/20 21:00 08/03/20 15:04 DC 08/03/20 00:12 Nifedipine (Procardia Xl) 60 mg STAT STAT PO 08/02/20 15:31 08/02/20 15:32 DC 08/03/20 00:08 Pantoprazole Sodium (Protonix) 40 mg DAILY PO 08/03/20 09:00 08/03/20 10:08 Ropinirole HCl (Requip) 1 mg STAT STAT PO 08/02/20 15:31 08/02/20 15:32 DC 08/03/20 00:07 Ropinirole HCl (Requip) 1 mg TID PO 08/03/20 09:00 08/04/20 17:24 Allergies Coded Allergies: niacin (Verified Allergy, Unknown, 10/24/19) Amelia Boland MD Aug 04, 2020 17:38
[2020-08-04 20:43] VITALS: BP 127/93
[2020-08-05 06:32] LABS: HEMATOCRIT 40.3 % (36.0-47.0); HEMOGLOBIN 12.1 g/dl (12.0-15.5); MEAN CORPUSCULAR HEMOGLOBIN 28.4 pg (27.0-33.0); MEAN CORPUSCULAR VOLUME 94.6 fl (80.0-96.0); PLATELET COUNT, AUTOMATED 252 10^3/uL (150-450); RED BLOOD COUNT 4.26 10^6/uL (4.00-5.40); WHITE BLOOD COUNT 9.8 10^3/uL (4.0-10.0)
[2020-08-05 06:41] LABS: BLOOD UREA NITROGEN 16 MG/DL (7-18); CALCIUM LEVEL 8.8 MG/DL (8.8-10.2); CARBON DIOXIDE LEVEL 33 MEQ/L (21-32); CHLORIDE LEVEL 104 MEQ/L (98-107); CREATININE FOR GFR 0.78 MG/DL (0.55-1.30); GLOMERULAR FILTRATION RATE > 60.0 (>32); GLUCOSE, FASTING 90 MG/DL (70-100); SODIUM LEVEL 140 MEQ/L (136-145)
[2020-08-05] MEDS ORDERED: LORazepam 2 MG/ML VIAL As Ordered ONE (08:55)
[2020-08-05] MEDS: PANTOPRAZOLE 40MG TAB (PROTONIX) PO SCH (09:00)
[2020-08-05] MEDS: rOPINIRole 1MG TAB PO SCH ×3 (09:00→21:00)
[2020-08-05] MEDS: APIXABAN 2.5 MG TAB (ELIQUIS) PO SCH ×2 (09:00→21:00)
[2020-08-05] MEDS: MEGESTROL 40 MG TAB PO SCH ×4 (09:00→21:00)
[2020-08-05] MEDS: CitaloPRAM (CeleXA) 10 MG TABLET PO SCH (09:00)
[2020-08-05] MEDS: METOPROLOL TART 12.5 MG PER 1/2 TAB PO SCH ×2 (09:00→21:00)
[2020-08-05] MEDS: ATORVASTATIN 20 MG TAB PO SCH (09:00)
[2020-08-05] MEDS: LORazepam 2 MG/ML VIAL IV PRN (09:08)
--- NOTE | 2020-08-05 17:47 | IPNPDOC ---
Date Seen The patient was seen on 08/05/20. Progress Note SUBJECTIVE: Increasingly agitated this AM, not sleeping well. Given ativan x 1, started on trazodone nightly. Possibly d/c home with family. No other events overnight. OBJECTIVE: PHYSICAL EXAMINATION: VITAL SIGNS: See below General: NAD, confused, elderly, frail, agitated AAOx 1 HEENT: NC/AT Lungs: CTA B/L, no W/R/R Heart: +S1S2, no M/R/G GI: soft, NT, +BS in 4 quad EXT: thin, no cyanosis clubbing or edema NEURO: No focal deficits, CN 2-12 intact. No sensory or motor issues PSYCH: Angry this AM LABORATORY DATA: See below. MICROBIOLOGY: Please see below. ASSESSMENT: 85 female brought in by daughter for several month history of gradually worsening confusion and falls. PLAN: #Worsening confusion likely 2/2 to age related memory loss vs. mild dementia, l ikely heightened by sleep deprivation -Increased agitation today, required dose of ativan. -Degree waxes and wanes, today more confused -Poor sleep -Depends on family for most of her activities of daily living, fall risk -CT head unrevealing -No infection -Cooperative most times and follows commands but not today -Optimize nutrition with full nutritional consult today -Plan is placement to SNF vs. home with family now- changed since 08/04/20 -Added trazodone to help with sleep #Physical deconditioning, acute on chronic s/p fall -PT: Pending progression and clarification of PLOF/home setup, recommending rehab vs. home with 12/02 -Discussed with PFS today, they are discussing with family options to go home and SNF from community [facility] -Patient has a medical conditions that requires positioning of the body in ways not feasible with an ordinary bed. Patient requires frequent changes in body position and has an immediate need for a change in body position so hospital bed at home would be very beneficial for patient at discharge if she goes home -Continue with services while here. #Chronic protein malnutrition -BMI 15.9, goal to improvement is 18 -Nutrition assessed: Ensure BID, incr protein and calorie intake #Abnormal thyroid studies, ? secondary hypothyroidism -TSH low at 0.215, T3 low -This is unlikely causing dementia -Would recommend repeat labs in 4-6 weeks #Atrial fibrillation, rate controlled and chronic -C/w all home meds, AC #HTN - continue home meds #COPD/RLL resection -Uses O2 at home if needed -Currently on 1.5 L NC -No increased SOB, coughing, chest pain #DVT prophylaxis - Eliquis DISPOSITION: Plan is home with family vs. SNF. PFS involved. ALC status. VS, I&O, 24H, Fishbone Vital Signs/I&O Vital Signs Date Time Temp Pulse Resp B/P (MAP) Pulse Ox O2 Delivery O2 Flow Rate FiO2 08/04/20 20:43 111 127/93 08/04/20 16:30 1.0 08/04/20 06:00 98.9 18 95 Nasal Cannula I&O- Last 24 Hours up to 6 AM 08/05/20 05:59 Intake Total 50 ml Output Total 700 ml Balance -650 ml Laboratory Data 24H LABS Laboratory Tests 2 08/05/20 05:39: Nucleated Red Blood Cells % (auto) 0.0, Anion Gap 3L, Glomerular Filtration Rate > 60.0, Calcium Level 8.8 CBC/BMP Laboratory Tests 08/05/20 05:39 Microbiology Microbiology 08/02/20 Blood Culture - Preliminary, Resulted No Growth after 72 hours. All specime... 08/02/20 Blood Culture - Preliminary, Resulted No Growth after 72 hours. All specime... Current Medications Current Medications Medications (Trade) Dose Ordered Sig/Kasi Route PRN Reason Start Time Stop Time Status Last Admin Dose Admin Acetaminophen (Tylenol Tab) 650 mg Q6HP PRN PO PAIN / FEVER 08/03/20 10:15 Albuterol Sulfate (Proventil, Ventolin Hfa) 2 puff Q6HP PRN INH SHORTNESS OF BREATH 08/03/20 15:15 Apixaban (Eliquis) 2.5 mg BID PO 08/02/20 21:00 08/04/20 20:43 Atorvastatin Calcium (Lipitor) 80 mg DAILY PO 08/03/20 09:00 08/03/20 10:08 Citalopram Hydrobromide (CeleXA) 10 mg DAILY PO 08/03/20 09:00 08/03/20 10:08 Home Med (Med Rec Complete!) ASDIRECTED XX 08/02/20 20:15 08/02/20 20:16 DC Lorazepam (Ativan) 1 mg Q6HP PRN IV ANXIETY/AGITATION 1/14/21 09:00 08/05/20 09:08 Megestrol Acetate (Megace) 40 mg QID PO 08/03/20 09:00 08/04/20 20:44 Metoclopramide HCl (REGLAN INJection) 5 mg Q6HP PRN IV NAUSEA OR VOMITING 08/04/20 05:15 Metoprolol Tartrate (Lopressor) 12.5 mg BID PO 08/02/20 21:00 08/04/20 20:43 Mirtazapine (Remeron) 15 mg QHS PO 08/02/20 21:00 08/03/20 15:04 DC 08/03/20 00:12 Nifedipine (Procardia Xl) 60 mg STAT STAT PO 08/02/20 15:31 08/02/20 15:32 DC 08/03/20 00:08 Pantoprazole Sodium (Protonix) 40 mg DAILY PO 08/03/20 09:00 08/03/20 10:08 Ropinirole HCl (Requip) 1 mg STAT STAT PO 08/02/20 15:31 08/02/20 15:32 DC 08/03/20 00:07 Ropinirole HCl (Requip) 1 mg TID PO 08/03/20 09:00 08/04/20 20:44 Trazodone HCl (Desyrel) 25 mg QHS PO 08/05/20 21:00 Allergies Coded Allergies: niacin (Verified Allergy, Unknown, 10/24/19) Amelia Boland MD Aug 05, 2020 17:46
[2020-08-05] MEDS ORDERED: traZODone 25MG PER 1/2 TABLET PO SCH (21:00)
[2020-08-06 06:20] VITALS: BP 166/98
[2020-08-06] MEDS: LORazepam 2 MG/ML VIAL IV PRN (07:34)
[2020-08-06] MEDS: CitaloPRAM (CeleXA) 10 MG TABLET PO SCH (07:35)
[2020-08-06] MEDS: ATORVASTATIN 20 MG TAB PO SCH (07:51)
[2020-08-06] MEDS: PANTOPRAZOLE 40MG TAB (PROTONIX) PO SCH (07:51)
[2020-08-06] MEDS: METOPROLOL TART 12.5 MG PER 1/2 TAB PO SCH (07:51)
[2020-08-06] MEDS: APIXABAN 2.5 MG TAB (ELIQUIS) PO SCH (07:51)
[2020-08-06] MEDS: MEGESTROL 40 MG TAB PO SCH ×2 (07:51→13:00)
[2020-08-06] MEDS: rOPINIRole 1MG TAB PO SCH (07:52)
[2020-08-06] MEDS ORDERED: ATIV1TAB10 PO (12:47)
[2020-08-06] MEDS ORDERED: TRAZ-252 PO (12:47)
--- NOTE | 2020-08-06 12:57 | DS.PDOC ---
Discharge Summary General Date of Admission Aug 02, 2020 at 19:29 Date of Discharge 08/06/20 Attending Physician: Amelia Boland MD Discharge Summary HISTORY OF PRESENT ILLNESS: Patient is a 85 year old female brought in by her daughter for a several months history of gradually worsening confusion and falls. 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 She has been found wandering and confused. Patient was not able to provide any history on admission. CT of the head neg, all other imaging neg. She was ultimately admitted for increased AMS, dementia, frequent falls. HOSPITAL COURSE: Patient had confusion which was waxing and waning during her hospital stay. Occasionally she would have episodes of anxiety, outbursts which were rare. Worsening confusion likely 2/2 to age related memory loss vs. mild dementia, likely heightened by sleep deprivation. She was not sleeping well during this time so, in addition to ativan, she was started on trazodone low dose HS. No infection was found. PT evaluated patient for physical deconditioning, they recommended 24/7. Nutrition did full evaluation and recommended Ensure BID, incr protein and calorie intake for chronic protein malnutrition. Abnormal thyroid studies were found and likely 2/2 to secondary hypothyroidism. Would recommend repeat labs in 4-6 weeks. All other chronic issues were well controlled. Patient's family was unable to care for patient 24/7 as recommended so placement to SNF offered to family and patient. On 08/06/20 patient was discharged to [facility] in stable condition. At time of discharge, patient denied chest pain, shortness of breath, n/v/d, abdominal pain. PAST MEDICAL HISTORY: Atrial fibrillation HTN Dementia HLD Anxiety/depression COPD/RLL resection PAST SURGICAL HISTORY: Unable to obtain SOCIAL HISTORY: ? smoking history, alcohol or drug use history. Lives at home with family who helps care for her. ALLERGIES: Please see below. DISCHARGE MEDICATIONS: Please see below. PHYSICAL EXAMINATION: VITAL SIGNS: See below General: NAD, confused, elderly, frail, AAOx 1 HEENT: NC/AT Lungs: CTA B/L, no W/R/R Heart: +S1S2, no M/R/G GI: soft, NT, +BS in 4 quad EXT: thin, no cyanosis clubbing or edema NEURO: No focal deficits, CN 2-12 intact. No sensory or motor issues LABORATORY DATA: See below. CT HEAD: Atrophy and microvascular ischemic changes. No acute intracranial hemorrhage, i nfarction, or mass/mass effect. Other imaging neg ASSESSMENT: 85 female brought in by daughter for several month history of gradually worsening confusion and falls. PLAN: #Worsening confusion likely 2/2 to age related memory loss vs. mild dementia, l ikely heightened by sleep deprivation -Received dose of ativan overnight, currently calm, pleasantly confused -Degree waxes and wanes -Poor sleep -Depends on family for most of her activities of daily living, fall risk -CT head unrevealing -No infection -Optimized nutrition with incr calorie, protein and ensure BID -Plan is placement at [facility] -Added trazodone to help with sleep #Physical deconditioning, acute on chronic s/p fall -PT: 12/02 care needed -C/w PT/OT #Chronic protein malnutrition -BMI 15.9, goal to improvement is 18 -Nutrition assessed: Ensure BID, incr protein and calorie intake #Abnormal thyroid studies, ? secondary hypothyroidism -TSH low at 0.215, T3 low -This is unlikely causing dementia -Would recommend repeat labs in 4-6 weeks #Atrial fibrillation, rate controlled and chronic -C/w all home meds, AC #HTN - continue home meds #COPD/RLL resection -Uses O2 at home if needed, 95% on 1 L NC -No increased SOB, coughing, chest pain #DVT prophylaxis - Eliquis DISPOSITION: Plan is d/c today to [facility] TIME SPENT ON DISCHARGE: Greater than 30 minutes. Vital Signs/I&Os Vital Signs Date Time Temp Pulse Resp B/P (MAP) Pulse Ox O2 Delivery O2 Flow Rate FiO2 08/06/20 09:00 1.0 08/06/20 06:20 98.3 90 20 166/98 (120) 96 Nasal Cannula I&O- Last 24 Hours up to 6 AM 08/06/20 06:00 Intake Total 360 ml Output Total 0 ml Balance 360 ml Microbiology Microbiology 08/02/20 Blood Culture - Preliminary, Resulted No Growth after 72 hours. All specime... 08/02/20 Blood Culture - Preliminary, Resulted No Growth after 72 hours. All specime... Discharge Medications Scheduled Apixaban (Eliquis) 2.5 Mg Tablet, 2.5 MG PO BID, (Reported) Atorvastatin Calcium (Atorvastatin Calcium) 80 Mg Tablet, 80 MG PO DAILY, (Reported) Citalopram Hydrobromide (Celexa) 10 Mg Tablet, 10 MG PO DAILY, (Reported) Megestrol Acetate (Megestrol Acetate) 40 Mg Tablet, 40 MG PO QID, (Reported) Metoprolol Tartrate (Metoprolol Tartrate) 25 Mg Tablet, 12.5 MG PO BID, (Reported) Pantoprazole Sodium (Protonix) 40 Mg Tablet.dr, 40 MG PO DAILY, (Reported) Ropinirole HCl (Ropinirole HCl) 1 Mg Tablet, 1 MG PO TID, (Reported) Trazodone HCl (Trazodone HCl) 50 Mg Tablet, 25 MG PO QHS Scheduled PRN Lorazepam (Ativan) 0.5 Mg Tablet, 0.5 MG PO DAILYPRN PRN for anxiety Allergies Coded Allergies: niacin (Verified Allergy, Unknown, 10/24/19) Amelia Boland MD Aug 06, 2020 12:56
[2020-08-06 15:33] VITALS: BP 162/94
== END 2020-08-06 16:02 | DRG 884 ==
LOC: M ED 11:31 → M ED INP 19:29 → M PCU 23:51 → M MS5PR 08-04 05:35
PROVIDERS: ADMIT Internal Medicine; ATTEND Internal Medicine
DX: F03.90 Unspecified dementia, unspecified severity, without behavioral disturbance, psychotic disturbance, mood disturbance, and anxiety (principal); E46 Unspecified protein-calorie malnutrition; I48.20 Chronic atrial fibrillation, unspecified; I10 Essential (primary) hypertension; J44.9 Chronic obstructive pulmonary disease, unspecified; E78.5 Hyperlipidemia, unspecified; R41.0 Disorientation, unspecified; R29.6 Repeated falls; F41.9 Anxiety disorder, unspecified; E03.8 Other specified hypothyroidism; F32.9 Major depressive disorder, single episode, unspecified; Z66 Do not resuscitate; Z79.01 Long term (current) use of anticoagulants; Z20.822 Contact with and (suspected) exposure to COVID-19; Z79.899 Other long term (current) drug therapy; Z88.8 Allergy status to other drugs, medicaments and biological substances; Z99.81 Dependence on supplemental oxygen; Z90.2 Acquired absence of lung [part of]; Z86.73 Personal history of transient ischemic attack (TIA), and cerebral infarction without residual deficits; Z72.820 Sleep deprivation

== ENCOUNTER → 2020-11-09 | Outpatient (REF) | payer MEDICARE, SELFPAY ==
[~2020-11-09] MED LIST changes: +ATIV1TAB10 PO; +ATOR80TA59 PO; +CELE10TA PO; +ELIQ2.5T PO; +LISI10TA22 PO; -LISI10TA4 PO; +MEGE40TA PO; +METO25TA4 PO; +MIRT-62 PO; +MOXI1TAB PO; +PROT1TAB2 PO; +PT COMMENT; +TRAZ-252 PO
[2020-11-09 10:22] LABS: BLOOD UREA NITROGEN 35 MG/DL (7-18); CALCIUM LEVEL 8.9 MG/DL (8.8-10.2); CARBON DIOXIDE LEVEL 33 MEQ/L (21-32); CHLORIDE LEVEL 102 MEQ/L (98-107); CREATININE FOR GFR 0.98 MG/DL (0.55-1.30); FREE T4 1.41 NG/DL (0.76-1.46); GLOMERULAR FILTRATION RATE 57.2 (>32); GLUCOSE, FASTING 72 MG/DL (70-100); IRON (FE) 49 UG/DL (50-170); PERCENT SATURATION 25.3 % (13.2-45.0); SODIUM LEVEL 140 MEQ/L (136-145); TOTAL IRON BINDING CAPACITY 194 UG/DL (250-450)
[2020-11-09 11:06] LABS: CORTISOL AM 6.4 UG/DL (4.3-22.4); VITAMIN B12 LEVEL 509 PG/ML (247-911)
== END ==
LOC: SKLAB7 08:00
DX: R63.4 Abnormal weight loss (principal); I48.91 Unspecified atrial fibrillation

== ENCOUNTER → 2020-11-11 | Outpatient (REF) ==
[2020-11-11 12:25] LABS: APPEARANCE, URINE TURBID (CLEAR); BACTERIA, URINE AUTO 2+ (NEGATIVE); BILIRUBIN, URINE AUTO NEGATIVE (NEGATIVE); BLOOD, URINE BLOOD NEGATIVE (NEGATIVE); COLOR, URINE YELLOW (YELLOW); GLUCOSE, URINE (UA) AUTO NEGATIVE (NEGATIVE); KETONE, URINE AUTO NEGATIVE (NEGATIVE); LEUKOCYTE ESTERASE, URINE AUTO 2+ (NEGATIVE); NITRITE, URINE AUTO POSITIVE (NEGATIVE); PROTEIN, URINE AUTO 3+ mg/dL (NEGATIVE); RBC, URINE AUTO 62 /HPF (0-3); SPECIFIC GRAVITY URINE AUTO 1.014 (1.002-1.035); SQUAMOUS EPITHELIAL CELL UR AU 0 /HPF (0-6); TRANSITIONAL EPITHELIAL AUTO 1 /HPF; UROBILINOGEN, URINE AUTO 0.2 mg/dL (0.0-2.0); WBC, URINE AUTO TNTC /HPF (0-3)
[2020-11-11 13:12] LABS: HEMATOCRIT 35.9 % (36.0-47.0); HEMOGLOBIN 10.9 g/dl (12.0-15.5); MEAN CORPUSCULAR HEMOGLOBIN 30.7 pg (27.0-33.0); MEAN CORPUSCULAR HGB CONC 30.4 g/dl (32.0-36.5); MEAN CORPUSCULAR VOLUME 101.1 fl (80.0-96.0); PLATELET COUNT, AUTOMATED 323 10^3/uL (150-450); RED BLOOD COUNT 3.55 10^6/uL (4.00-5.40); WHITE BLOOD COUNT 17.1 10^3/uL (4.0-10.0)
[2020-11-11 13:35] LABS: CALCIUM LEVEL 9.8 MG/DL (8.8-10.2); CREATININE FOR GFR 1.02 MG/DL (0.55-1.30); GLOMERULAR FILTRATION RATE 54.6 (>32); POTASSIUM SERUM 5.1 MEQ/L (3.5-5.1)
== END ==
LOC: SKLAB7 10:01
DX: R11.0 Nausea (principal)

== ENCOUNTER → 2020-11-16 | Outpatient (REF) | payer MEDICARE, SELFPAY ==
[2020-11-16 09:35] LABS: BLOOD UREA NITROGEN 30 MG/DL (7-18); CALCIUM LEVEL 8.9 MG/DL (8.8-10.2); CARBON DIOXIDE LEVEL 36 MEQ/L (21-32); CHLORIDE LEVEL 105 MEQ/L (98-107); CREATININE FOR GFR 0.64 MG/DL (0.55-1.30); GLOMERULAR FILTRATION RATE > 60.0 (>32); GLUCOSE, FASTING 107 MG/DL (70-100); POTASSIUM SERUM 5.1 MEQ/L (3.5-5.1); SODIUM LEVEL 143 MEQ/L (136-145)
== END ==
LOC: SKLAB7 08:00
PROVIDERS: ATTEND Internal Medicine
DX: N18.9 Chronic kidney disease, unspecified (principal); N39.0 Urinary tract infection, site not specified

== ENCOUNTER → 2020-11-23 | Outpatient (REF) | payer MEDICARE, SELFPAY ==
[2020-11-23 14:18] LABS: HEMATOCRIT 36.9 % (36.0-47.0); HEMOGLOBIN 10.7 g/dl (12.0-15.5); MEAN CORPUSCULAR HEMOGLOBIN 30.4 pg (27.0-33.0); MEAN CORPUSCULAR VOLUME 104.8 fl (80.0-96.0); PLATELET COUNT, AUTOMATED 239 10^3/uL (150-450); RED BLOOD COUNT 3.52 10^6/uL (4.00-5.40); WHITE BLOOD COUNT 8.9 10^3/uL (4.0-10.0)
[2020-11-23 14:56] LABS: BLOOD UREA NITROGEN 38 MG/DL (7-18); CALCIUM LEVEL 8.9 MG/DL (8.8-10.2); CARBON DIOXIDE LEVEL 33 MEQ/L (21-32); CHLORIDE LEVEL 104 MEQ/L (98-107); CREATININE FOR GFR 0.85 MG/DL (0.55-1.30); GLOMERULAR FILTRATION RATE > 60.0 (>32); GLUCOSE, FASTING 92 MG/DL (70-100); NT-PRO BNP 22911 PG/ML (<450); POTASSIUM SERUM 4.7 MEQ/L (3.5-5.1); SODIUM LEVEL 141 MEQ/L (136-145)
--- NOTE | 2020-11-23 16:05 | REP ---
INDICATION: COPD/SOB HX OF LUNG Ca. COMPARISON: Comparison chest x-ray 02 August 2020.. TECHNIQUE: Semi-erect AP portable chest x-ray FINDINGS: There is moderate to marked cardiomegaly. There are bilateral pleural effusions right greater than left. There is a diffuse interstitial edema pattern in the lung quiñonez consistent with interstitial pulmonary edema. These markings are a little heavier on the right than the left. There are fiducial markers in each lung apex. Diffuse osteoporosis is noted. IMPRESSION: CHF pulmonary edema pattern. Bilateral effusions. <Electronically signed by Doe Vaca > 11/23/20 [id number]
--- NOTE | 2020-11-24 08:11 | ECGEPIP ---
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 no change from 08/02/20 Electronically Signed on 11-24-2020 8:11:28 EDT by Emil Hdz
== END ==
LOC: SKLAB7 12:01
DX: I50.1 Left ventricular failure, unspecified (principal); J90 Pleural effusion, not elsewhere classified; I45.2 Bifascicular block; I48.91 Unspecified atrial fibrillation; J44.9 Chronic obstructive pulmonary disease, unspecified; Z85.118 Personal history of other malignant neoplasm of bronchus and lung

== ENCOUNTER → 2020-11-24 | Outpatient (REF) | payer MEDICARE, MEDICAID ==
[2020-11-24 10:22] LABS: CREATININE FOR GFR 1.02 MG/DL (0.55-1.30); GLOMERULAR FILTRATION RATE 54.6 (>32); POTASSIUM SERUM 4.5 MEQ/L (3.5-5.1); TROPONIN I 0.05 NG/ML (< 0.10)
== END ==
LOC: SKLAB7 08:36
DX: I50.9 Heart failure, unspecified (principal)

== ENCOUNTER → 2020-11-25 | Outpatient (REF) | payer SELFPAY, MEDICAID ==
[2020-11-25 09:53] LABS: CALCIUM LEVEL 8.9 MG/DL (8.8-10.2); CREATININE FOR GFR 1.11 MG/DL (0.55-1.30); GLOMERULAR FILTRATION RATE 49.5 (>32)
== END ==
LOC: SKLAB7 07:00
DX: I50.9 Heart failure, unspecified (principal)

== ENCOUNTER → 2020-11-26 | Outpatient (REF) | payer SELFPAY, MEDICAID, MEDICARE, OTHER ==
[2020-11-26 12:24] LABS: CALCIUM LEVEL 9.1 MG/DL (8.8-10.2); CREATININE FOR GFR 1.17 MG/DL (0.55-1.30); GLOMERULAR FILTRATION RATE 46.6 (>32)
== END ==
LOC: SKLAB7 07:00
DX: I50.9 Heart failure, unspecified (principal)

== ENCOUNTER → 2020-12-03 | Outpatient (REF) | payer SELFPAY, MEDICAID, MEDICARE, OTHER ==
--- NOTE | 2020-12-03 14:51 | REP ---
INDICATION: COPD. COMPARISON: 11/23/2020 the latest prior also portable TECHNIQUE: Portable: The technique utilized in obtaining the radiograph has magnified the cardiac silhouette and attenuated the interstitial markings. FINDINGS: Once again, there is cardiomegaly accentuated by technique. Once again, there are bibasilar opacities status quo. Once again, there is a diffuse increase in the interstitial markings throughout the lung quiñonez which appears stable. The osseous structures appear stable. IMPRESSION: No significant change from the prior exam. CHF pattern and bilateral pleural effusions status quo.. Certainly, concomitant pneumonia cannot be ruled out. <Electronically signed by Morris Trujillo > 12/03/20 [id number]
== END ==
LOC: SKLAB7 11:23
DX: J90 Pleural effusion, not elsewhere classified (principal); I50.9 Heart failure, unspecified

== ENCOUNTER → 2020-12-06 | Outpatient (REF) | payer MEDICAID, MEDICARE, OTHER, SELFPAY ==
[2020-12-06 11:01] LABS: CALCIUM LEVEL 9.4 MG/DL (8.8-10.2); CREATININE FOR GFR 1.56 MG/DL (0.55-1.30); GLOMERULAR FILTRATION RATE 33.4 (>32); POTASSIUM SERUM 4.3 MEQ/L (3.5-5.1)
== END ==
LOC: SKLAB7 07:00
DX: I50.9 Heart failure, unspecified (principal)

== ENCOUNTER → 2020-12-07 | Outpatient (REF) | payer MEDICAID, MEDICARE, OTHER, SELFPAY ==
[2020-12-07 09:13] LABS: HEMATOCRIT 37.5 % (36.0-47.0); HEMOGLOBIN 10.8 g/dl (12.0-15.5); MEAN CORPUSCULAR HGB CONC 28.8 g/dl (32.0-36.5); MEAN CORPUSCULAR VOLUME 100.8 fl (80.0-96.0); PLATELET COUNT, AUTOMATED 178 10^3/uL (150-450); RED BLOOD COUNT 3.72 10^6/uL (4.00-5.40); WHITE BLOOD COUNT 10.8 10^3/uL (4.0-10.0)
[2020-12-07 09:42] LABS: CALCIUM LEVEL 8.9 MG/DL (8.8-10.2); CREATININE FOR GFR 1.62 MG/DL (0.55-1.30); POTASSIUM SERUM 3.9 MEQ/L (3.5-5.1); TROPONIN I 0.07 NG/ML (< 0.10)
--- NOTE | 2020-12-07 17:05 | REP ---
INDICATION: PLURAL EFFUSION. COMPARISON: 12/03/2020. TECHNIQUE: Single portable AP view of the chest was performed. FINDINGS: Cardiomegaly, vascular congestion and CHF pattern, with bilateral pleural effusions, all appears unchanged. The mediastinal silhouette is unchanged. Metallic clips overlie both upper lung zones. IMPRESSION: Stable findings of CHF, pulmonary edema and bilateral pleural effusions. <Electronically signed by Colton Horvath > 12/07/20 [id number]
--- NOTE | 2020-12-07 18:28 | ECGEPIP ---
[facility] Test Date: 2020-12-07 Pat Name: RILEY NYE Department: Room: - Gender: Female Dental Coordinator: GARRISON : 1935 Requested By: Traci Osorio Order Number: [id number] Reading MD: Jose A Payne Measurements Intervals [place] Rate: 92 P: [place]: QRS: 223 QRSD: 114 T: 96 QT: 362 QTc: 447 Interpretive Statements Atrial fibrillation Low voltage QRS Right bundle branch block , plus right ventricular hypertrophy extensive artifact limits interpretation but likely similar to tracing done 11-23-20 Electronically Signed on 12-07-2020 18:28:25 EDT by Jose A Payne
== END ==
LOC: SKLAB7 07:00
DX: I50.9 Heart failure, unspecified (principal); J90 Pleural effusion, not elsewhere classified; I48.91 Unspecified atrial fibrillation; I45.10 Unspecified right bundle-branch block

== ENCOUNTER → 2020-12-08 | Outpatient (REF) | payer MEDICARE, OTHER ==
[2020-12-08 09:24] LABS: CALCIUM LEVEL 9.1 MG/DL (8.8-10.2); CREATININE FOR GFR 1.62 MG/DL (0.55-1.30); POTASSIUM SERUM 4.1 MEQ/L (3.5-5.1)
== END ==
LOC: SKLAB7 07:00
DX: J90 Pleural effusion, not elsewhere classified (principal)